=== PATIENT | female | born 1970 | race Caucasian/White ===

== ENCOUNTER → 2016-05-21 | Outpatient (CLI) | payer OTHER ==
[2015-10-30 19:55] VITALS: BP 130/70
[~2016-05-21] MED LIST: FLUD0.1T PO; HYDR-2666 PO; HYDR-971 PO; OXYC10TA PO; OXYC5CAP3 PO; POTA99TA2 PO; PROAIR HFA8.5 GM INH
--- NOTE | 2016-05-22 13:41 | RAD ---
DATE: 05/21/2016 EXAM: DIGITAL DIAGNOSTIC BILATERAL HISTORY: Bilateral breast pain. Chronic. COMPARISON: Outside examination 06/23/2015 This study was interpreted with the benefit of Computerized Aided Detection (CAD). FINDINGS: The breast parenchyma Is heterogeneiously dense, which could reduce sensitivity of mammography. Breast parenchyma level C. The area of concern in each breast (pain) was marked A dominant mass is not seen. No suspect calcifications are seen. A significant change relative to the outside examination is not seen Targeted ultrasound was performed. Examination was targeted to the areas of pain In the area examined in the right breast no abnormality is seen. In the area examined in the left breast, the 1:00 position there is a well-defined hypoechoic 13 mm mass probably reflecting a cyst. IMPRESSION: Unchanged benign-appearing mammograms. Normal targeted ultrasound of the right breast. 13 mm well-defined, probably benign, mass at the 1:00 position of the left breast likely reflecting a cyst. Follow-up ultrasound suggested in 6 months for confirmation BI-RADS CATEGORY: 3 PROBABLE BENIGN FINDING(S-SHORT INTERVAL FOLLOW-UP SUGGESTED RECOMMENDED FOLLOW-UP: 6M 6 MONTH FOLLOW-UP PQRS compliance statement: Patient information was entered into a reminder system with a target due date 11/21/2016 for the next mammogram. Mammography is a sensitive method for finding small breast cancers, but it does not detect them all and is not a substitute for careful clinical examination. A negative mammogram does not negate a clinically suspicious finding and should not result in delay in biopsying a clinically suspicious abnormality. "Our facility is accredited by the [employer] Mammography Program." DICTATED and SIGNED BY: JOSEFINA FRANCIS MD DATE: 05/21/16 1547 MTDDada
== END | disposition home or self-care (01) ==
LOC: MAMMO 13:02
PROVIDERS: ATTEND Obstetrics & Gynecology
DX: Z01.419 Encounter for gynecological examination (general) (routine) without abnormal findings (principal); N63 Unspecified lump in breast
CPT/HCPCS: 76641; G0204; 77066

== ENCOUNTER 2016-07-19 22:06 | Inpatient (IN) | payer OTHER ==
[~2016-07-19] VITALS: Ht 162.6 cm; Wt 76.9 kg
[2016-07-19 22:44] LABS: BASO % 0 % (0-3); EOS % 0 % (0-3); HEMATOCRIT 44.1 % (36.0-47.0); HEMOGLOBIN 14.7 g/dL (12.0-15.5); LYMPH # 0.6 x10^3/uL (1.0-4.8); LYMPH % 6 % (24-48); MEAN CORPUSCULAR HEMOGLOBIN 30 pg (25-35); MEAN CORPUSCULAR HGB CONC 33 g/dL (31-37); MEAN CORPUSCULAR VOLUME 89 fL (79-100); MONO % 2 % (0-9); NEUT % 92 % (31-73); PLATELET COUNT 215 x10^3/uL (140-400); RED BLOOD COUNT 4.95 x10^6/uL (3.50-5.40); RED CELL DISTRIBUTION WIDTH 14.6 % (11.5-14.5); WHITE BLOOD COUNT 10.7 x10^3/uL (4.0-11.0)
[2016-07-19] MEDS ORDERED: ONDANSETRON PF 4 MG/2 ML VIAL. IV ONE (22:45)
[2016-07-19] MEDS: IV NORMAL SALINE 1000ML BAG 1,000 ML IV ONE ×2 (22:45→22:49)
[2016-07-19] MEDS: fentaNYL PF VIAL 100 MCG/2 ML VIAL IV PRN (22:51)
[2016-07-19] MEDS: IV NORMAL SALINE 1000ML BAG 1,000 ML IV SCH ×3 (22:51→23:41)
[2016-07-19 22:59] LABS: CALCIUM 8.1 mg/dL (8.5-10.1); CREATININE 0.9 mg/dL (0.6-1.0); GFR 67.1; POTASSIUM 3.5 mmol/L (3.5-5.1)
[2016-07-19 23:02] LABS: PLT ESTIMATE ADEQUATE (ADEQUATE)
[2016-07-19 23:04] LABS: ALBUMIN 3.2 g/dL (3.4-5.0); ALBUMIN/GLOBULIN RATIO 0.8 (1.0-1.7); TOTAL BILIRUBIN 0.8 mg/dL (0.2-1.0); TOTAL PROTEIN 7.2 g/dL (6.4-8.2)
--- NOTE | 2016-07-19 23:46 | RAD ---
PROCEDURE CT abdomen pelvis without contrast dated 07/19/2016. HISTORY Fever and diarrhea for 2 days. TECHNIQUE Contiguous axial imaging of the abdomen and pelvis performed without the administration of IV or oral contrast.Exposure: One or more of the following individualized dose reduction techniques were utilized for this exam: 1. Automated exposure control. 2. Adjustment of the mA and/or kV according to patient size. 3. Use of iterative reconstruction technique. COMPARISON 06/11/2015. FINDINGS Limited images of the lung bases are clear. Heart size mildly enlarged. No pleural or pericardial effusion. Solid abdominal viscera not well evaluated in the absence of contrast material. No apparent attenuation abnormality of the liver or spleen. Pancreas, adrenal glands unremarkable. The gallbladder is surgically absent. Kidneys are symmetric in size and attenuation. No calcific renal or ureteral stone. No hydronephrosis. Unopacified GI tract normal in caliber and contour. No focal bowel wall thickening. No inflammatory stranding in the mesenteric. Appendix normal in caliber. No ascites or lymphadenopathy. Minimal hazy increased attenuation in the mesenteric fat with fluid-filled loops of bowel. Images of pelvis show nondistended urinary bladder. Uterus is surgically absent. Small amount of free pelvic fluid. No pelvic lymphadenopathy. Bone window show no acute findings. IMPRESSION - No acute abnormality of abdomen or pelvis. - Mild hazy increased attenuation in the mesenteric fat with fluid filled loops of bowel, nonspecific. This could represent infectious or inflammatory enteritis. - Small amount of free pelvic fluid, nonspecific. - Status post cholecystectomy and hysterectomy. Electronically signed by: Greg Baig (July 19, 2016 23:45:08)
[2016-07-19 23:54] LABS: BILIRUBIN,URINE NEGATIVE (NEG); GLUCOSE,URINE NEGATIVE (NEG); NITRITE,URINE NEGATIVE (NEG); PROTEIN,URINE NEGATIVE (NEG-TRACE); UROBILINOGEN,URINE 0.2 mg/dL (0.2 mg/dL)
[2016-07-20] VITALS (11 sets, daily range): BP systolic 89–117; BP diastolic 33–96
[2016-07-20 00:10] LABS: BACTERIA,URINE FEW /HPF (0-FEW); RBC,URINE 0 /HPF (0-2); SQUAMOUS EPITHELIAL CELL,UR FEW /LPF; WBC,URINE OCC /HPF (0-4)
[2016-07-20] MEDS: fentaNYL PF VIAL 100 MCG/2 ML VIAL IV PRN ×3 (00:19→21:05)
[2016-07-20] MEDS ORDERED: ONDANSETRON PF 4 MG/2 ML VIAL. IV PRN ×2 (00:30→12:45)
[2016-07-20] MEDS ORDERED: ACETAMINOPHEN 325 MG TABLET. PO PRN (00:30)
[2016-07-20] MEDS ORDERED: fentaNYL PF VIAL 100 MCG/2 ML VIAL IV PRN (00:30)
[2016-07-20] MEDS ORDERED: CIPROFLOXACIN 400MG PREMIX 200 ML IV ONE (02:00)
[2016-07-20] MEDS ORDERED: GABA-586 PO (02:06)
[2016-07-20] MEDS ORDERED: CYCL10TA2 PO (02:06)
[2016-07-20] MEDS: IV NORMAL SALINE 1000ML BAG 1,000 ML IV SCH ×3 (02:29→16:30)
--- NOTE | 2016-07-20 03:08 | PHYS DOC ---
Past Medical History Past Medical History: Asthma Additional Past Medical Histor: chest pain, "back pain" Past Surgical History: Cholecystectomy, Hysterectomy Additional Past Surgical Histo: left and right hand surgery, back surgery Alcohol Use: None Drug Use: None Adult General Chief Complaint Chief Complaint: NAUSEA/VOMITING/DIARRHA HPI HPI Patient is a 46 year old female who presents with abdominal pain, vomiting, diarrhea. The patient reports onset of symptoms yesterday. She reports severe lower abdominal pain associated with numerous episodes of vomiting, up to 4 times per hour, & many episodes of diarrhea. She reports sweats/chills. She denies hematemesis, hematochezia/melena, dysuria/hematuria. She denies exposures to other contacts with similar symptoms, no recent antibiotics. She just returned home from [place], in fact her symptoms started in the airport when she arrived in [place]. She has history of several abdominal surgeries including cholecystectomy, hysterectomy, oophorectomy, Review of Systems Review of Systems Constitutional: Denies fever or chills HENT: Denies nasal congestion or sore throat Respiratory: Denies cough or shortness of breath Cardiovascular: Denies chest pain or edema GI: Reports abdominal pain, nausea, vomiting, and diarrhea, denies bloody stools : Denies dysuria or hematuria Musculoskeletal: Denies back pain or joint pain Integument: Denies rash Neurologic: Denies headache, focal weakness or sensory changes Current Medications Current Medications Current Medications Medications (Trade) Dose Ordered Sig/Cordelia Start Time Stop Time Status Last Admin Dose Admin Fentanyl Citrate (Fentanyl 2ml Vial) 50 mcg PRN Q15MIN PRN 07/19/16 22:45 07/20/16 22:44 07/20/16 00:19 50 MCG Ondansetron HCl (Zofran) 4 mg 1X ONCE 07/19/16 22:45 07/19/16 22:46 DC 07/19/16 22:49 4 MG Sodium Chloride 1,000 ml @ 2,190 mls/hr Q28M 07/19/16 22:45 07/19/16 23:45 DC 07/19/16 22:51 2,190 MLS/HR Allergies Allergies Allergies Coded Allergies Type Severity Reaction Last Updated Verified Iodinated Contrast Media - Oral and Allergy Intermediate 10/15/13 Yes Sulfa (Sulfonamide Antibiotics) Allergy Intermediate Unknown 10/15/13 Yes Latex, Natural Rubber Allergy Mild ITCHY, RASH 08/02/15 Yes Physical Exam Physical Exam Constitutional: Well developed, well nourished, no acute distress, non-toxic appearance. HENT: Normocephalic, atraumatic, bilateral external ears normal, oropharynx dry , nose normal. Eyes: conjunctiva normal, no discharge. Neck: supple, no stridor. Cardiovascular: tachycardic, regular, no murmurs, no edema. Lungs & Thorax: LCTAB, no wheezing, no respiratory distress. Abdomen: normal bowel sounds, soft, generalized tenderness to lower abdomen without focal RLQ tenderness, no rebound/guarding, nondistended. Skin: Warm, dry, no erythema, no rash. Back: No CVA tenderness. Extremities: No tenderness, no edema. Neurologic: Alert and oriented X 3, no focal deficits noted. Psychologic: Affect normal, judgement normal, mood normal. Current Patient Data Vital Signs Vital Signs Date Time Temp Pulse Resp B/P (MAP) Pulse Ox O2 Delivery O2 Flow Rate FiO2 07/20/16 00:13 99.7 99.7 07/19/16 23:40 105 18 102/67 (79) 94 Room Air Lab Values Laboratory Tests Test 07/19/16 22:30 07/19/16 23:40 White Blood Count 10.7 x10^3/uL (4.0-11.0) Red Blood Count 4.95 x10^6/uL (3.50-5.40) Hemoglobin 14.7 g/dL (12.0-15.5) Hematocrit 44.1 % (36.0-47.0) Mean Corpuscular Volume 89 fL (79-100) Mean Corpuscular Hemoglobin 30 pg (25-35) Mean Corpuscular Hemoglobin Concent 33 g/dL (31-37) Red Cell Distribution Width 14.6 % (11.5-14.5) H Platelet Count 215 x10^3/uL (140-400) Neutrophils (%) (Auto) 92 % (31-73) H Lymphocytes (%) (Auto) 6 % (24-48) L Monocytes (%) (Auto) 2 % (0-9) Eosinophils (%) (Auto) 0 % (0-3) Basophils (%) (Auto) 0 % (0-3) Neutrophils # (Auto) 9.8 x10^3uL (1.8-7.7) H Lymphocytes # (Auto) 0.6 x10^3/uL (1.0-4.8) L Monocytes # (Auto) 0.3 x10^3/uL (0.0-1.1) Eosinophils # (Auto) 0.0 x10^3/uL (0.0-0.7) Basophils # (Auto) 0.0 x10^3/uL (0.0-0.2) Segmented Neutrophils % 82 % (35-66) H Band Neutrophils % 14 % (0-9) H Lymphocytes % 3 % (24-48) L Monocytes % 1 % (0-10) Platelet Estimate Adequate (ADEQUATE) Sodium Level 133 mmol/L (136-145) L Potassium Level 3.5 mmol/L (3.5-5.1) Chloride Level 100 mmol/L (98-107) Carbon Dioxide Level 25 mmol/L (21-32) Anion Gap 8 (6-14) Blood Urea Nitrogen 10 mg/dL (7-20) Creatinine 0.9 mg/dL (0.6-1.0) Estimated GFR (Cockcroft-Gault) 67.1 BUN/Creatinine Ratio 11 (6-20) Glucose Level 115 mg/dL (70-99) H Lactic Acid Level 1.0 mmol/L (0.4-2.0) Calcium Level 8.1 mg/dL (8.5-10.1) L Total Bilirubin 0.8 mg/dL (0.2-1.0) Aspartate Amino Transferase (AST) 10 U/L (15-37) L Alanine Aminotransferase (ALT) 16 U/L (14-59) Alkaline Phosphatase 64 U/L (46-116) Troponin I Quantitative < 0.017 ng/mL (0.000-0.055) Total Protein 7.2 g/dL (6.4-8.2) Albumin 3.2 g/dL (3.4-5.0) L Albumin/Globulin Ratio 0.8 (1.0-1.7) L Lipase 128 U/L (73-393) Urine Collection Type Unknown Urine Color Yellow Urine Clarity Clear Urine pH 6.0 Urine Specific [place] <=1.005 Urine Protein Negative mg/dL (NEG-TRACE) Urine Glucose (UA) Negative mg/dL (NEG) Urine Ketones (Stick) Negative mg/dL (NEG) Urine Blood Negative (NEG) Urine Nitrite Negative (NEG) Urine Bilirubin Negative (NEG) Urine Urobilinogen Dipstick 0.2 mg/dL (0.2 mg/dL) Urine Leukocyte Esterase Negative (NEG) Urine RBC 0 /HPF (0-2) Urine WBC Occ /HPF (0-4) Urine Squamous Epithelial Cells Few /LPF Urine Bacteria Few /HPF (0-FEW) Laboratory Tests 07/19/16 22:30 Laboratory Tests 07/19/16 22:30 EKG EKG [] Radiology/Procedures Radiology/Procedures PROCEDURE: CT ABDOMEN PELVIS WO CONTRAST PROCEDURE CT abdomen pelvis without contrast dated 07/19/2016. HISTORY Fever and diarrhea for 2 days. TECHNIQUE Contiguous axial imaging of the abdomen and pelvis performed without the administration of IV or oral contrast.Exposure: One or more of the following individualized dose reduction techniques were utilized for this exam: 1. Automated exposure control. 2. Adjustment of the mA and/or kV according to patient size. 3. Use of iterative reconstruction technique. COMPARISON 06/11/2015. FINDINGS Limited images of the lung bases are clear. Heart size mildly enlarged. No pleural or pericardial effusion. Solid abdominal viscera not well evaluated in the absence of contrast material. No apparent attenuation abnormality of the liver or spleen. Pancreas, adrenal glands unremarkable. The gallbladder is surgically absent. Kidneys are symmetric in size and attenuation. No calcific renal or ureteral stone. No hydronephrosis. Unopacified GI tract normal in caliber and contour. No focal bowel wall thickening. No inflammatory stranding in the mesenteric. Appendix normal in caliber. No ascites or lymphadenopathy. Minimal hazy increased attenuation in the mesenteric fat with fluid-filled loops of bowel. Images of pelvis show nondistended urinary bladder. Uterus is surgically absent. Small amount of free pelvic fluid. No pelvic lymphadenopathy. Bone window show no acute findings. IMPRESSION - No acute abnormality of abdomen or pelvis. - Mild hazy increased attenuation in the mesenteric fat with fluid filled loops of bowel, nonspecific. This could represent infectious or inflammatory enteritis. - Small amount of free pelvic fluid, nonspecific. - Status post cholecystectomy and hysterectomy. Electronically signed by: Greg Baig (July 19, 2016 23:45:08) DICTATED and SIGNED BY: GREG BAIG MD DATE: 07/19/16 2345 [] Course & Med Decision Making Course & Med Decision Making Pertinent Labs and Imaging studies reviewed. (See chart for details) The patient presents with abdominal pain, vomiting, diarrhea. Gave IV fluids per sepsis protocol as she has fever & tachycardia, gave zofran & pain medication. Obtained labs, UA, CT. No evidence of UTI & CT shows enteritis. Fever resolving, less tachycardic, pain controlled, no further vomiting. Likely gastroenteritis with dehydration but will give single dose of cipro & flagyl as she meets sepsis criteria. Recommended admission for further evaluation & treatment. She agrees with plan of care. Discussed with Dr. Taveras who agrees to admit to inpatient status, GI consult to Dr. Dotson. The patient is admitted in stable condition. [] Dragon Disclaimer Dragon Disclaimer This electronic medical record was generated, in whole or in part, using a voice recognition dictation system. Departure Departure Impression: Primary Impression: Abdominal pain Additional Impressions: Gastroenteritis SIRS (systemic inflammatory response syndrome) Fever Tachycardia Disposition: ADMITTED INPATIENT Admitting Physician: Hortencia Taveras Condition: STABLE Referrals: EDY SANABRIA MD (PCP) Problem Qualifiers ELEN STONER MD July 20, 2016 03:08
--- NOTE | 2016-07-20 10:01 | EKG ---
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
--- NOTE | 2016-07-20 10:14 | PDOC1 ---
History and Physical Current Problem List Problem List Problems Medical Problems: (1) Abdominal pain Status: Acute (2) Fever Status: Acute (3) Gastroenteritis Status: Acute (4) SIRS (systemic inflammatory response syndrome) Status: Acute (5) Tachycardia Status: Acute Current Medications Current Medications Current Medications Medications (Trade) Dose Ordered Sig/Cordelia Start Time Stop Time Status Last Admin Dose Admin Acetaminophen (Tylenol) 650 mg PRN Q4HRS PRN 07/20/16 00:30 07/21/16 00:29 07/20/16 02:28 650 MG Ciprofloxacin Lactate 200 ml @ 200 mls/hr 1X ONCE 07/20/16 02:00 07/20/16 02:59 DC 07/20/16 02:29 200 MLS/HR Fentanyl Citrate (Fentanyl 2ml Vial) 50 mcg PRN Q1HR PRN 07/20/16 00:30 07/21/16 00:29 07/20/16 05:01 50 MCG Metronidazole 100 ml @ 100 mls/hr 1X ONCE 07/20/16 01:00 07/20/16 01:59 DC Ondansetron HCl (Zofran) 4 mg PRN Q8HRS PRN 07/20/16 00:30 07/21/16 00:29 07/20/16 07:29 4 MG Sodium Chloride 1,000 ml @ 125 mls/hr Q8H 07/20/16 00:30 07/21/16 00:29 07/20/16 02:29 125 MLS/HR Allergies Allergies Allergies Coded Allergies Type Severity Reaction Last Updated Verified Iodinated Contrast Media - Oral and Allergy Intermediate 10/15/13 Yes Sulfa (Sulfonamide Antibiotics) Allergy Intermediate Unknown 10/15/13 Yes aspirin Allergy Intermediate 07/20/16 Yes codeine Allergy Intermediate 07/20/16 Yes guaifenesin Allergy Intermediate 07/20/16 Yes ibuprofen Allergy Intermediate 07/20/16 Yes morphine Allergy Intermediate Patient is can take PO Morphine 07/20/16 Yes pamabrom Allergy Intermediate 07/20/16 Yes Latex, Natural Rubber Allergy Mild ITCHY, RASH 08/02/15 Yes ROS Review of System CONSTITUTIONAL: No fever or chills EYES: No recent changes SKIN: No rash or itching CARDIOVASCULAR: No chest pain, syncope, palpitations, or edema RESPIRATORY: No SOB or cough GASTROINTESTINAL: nausea, vomiting or abdominal pain, diarrhea. NEUROLOGICAL: No headaches or weakness ENDOCRINE: No cold or heat intolerance GENITOURINARY: No urgency or frequency of urination MUSCULOSKELETAL: No back pain or joint pain LYMPHATICS: No enlarged lymph nodes PSYCHIATRIC: No anxiety or depression Physical Exam Physical Exam GEN.: No apparent distress. Alert and oriented. HEENT: Head is normocephalic, atraumatic NECK: Supple. no JVD LUNGS: Clear to auscultation. HEART: RRR, S1, S2 present. Peripheral pulses intact ABDOMEN: Soft, nontender. Positive bowel sounds. EXTREMITIES: Without any cyanosis. NEUROLOGIC: Normal speech, normal tone PSYCHIATRIC: Normal affect, normal mood. SKIN: No ulcerations Vitals Vitals Vital Signs Date Time Temp Pulse Resp B/P (MAP) Pulse Ox O2 Delivery O2 Flow Rate FiO2 07/20/16 08:00 Room Air 07/20/16 07:29 2.0 07/20/16 07:00 97.7 80 18 97/53 (68) 100 97.7 Labs Labs Laboratory Tests Test 07/19/16 22:30 07/19/16 23:40 07/20/16 00:30 White Blood Count 10.7 x10^3/uL (4.0-11.0) Red Blood Count 4.95 x10^6/uL (3.50-5.40) Hemoglobin 14.7 g/dL (12.0-15.5) Hematocrit 44.1 % (36.0-47.0) Mean Corpuscular Volume 89 fL (79-100) Mean Corpuscular Hemoglobin 30 pg (25-35) Mean Corpuscular Hemoglobin Concent 33 g/dL (31-37) Red Cell Distribution Width 14.6 % (11.5-14.5) Platelet Count 215 x10^3/uL (140-400) Neutrophils (%) (Auto) 92 % (31-73) Lymphocytes (%) (Auto) 6 % (24-48) Monocytes (%) (Auto) 2 % (0-9) Eosinophils (%) (Auto) 0 % (0-3) Basophils (%) (Auto) 0 % (0-3) Neutrophils # (Auto) 9.8 x10^3uL (1.8-7.7) Lymphocytes # (Auto) 0.6 x10^3/uL (1.0-4.8) Monocytes # (Auto) 0.3 x10^3/uL (0.0-1.1) Eosinophils # (Auto) 0.0 x10^3/uL (0.0-0.7) Basophils # (Auto) 0.0 x10^3/uL (0.0-0.2) Segmented Neutrophils % 82 % (35-66) Band Neutrophils % 14 % (0-9) Lymphocytes % 3 % (24-48) Monocytes % 1 % (0-10) Platelet Estimate Adequate (ADEQUATE) Sodium Level 133 mmol/L (136-145) Potassium Level 3.5 mmol/L (3.5-5.1) Chloride Level 100 mmol/L (98-107) Carbon Dioxide Level 25 mmol/L (21-32) Anion Gap 8 (6-14) Blood Urea Nitrogen 10 mg/dL (7-20) Creatinine 0.9 mg/dL (0.6-1.0) Estimated GFR (Cockcroft-Gault) 67.1 BUN/Creatinine Ratio 11 (6-20) Glucose Level 115 mg/dL (70-99) Lactic Acid Level 1.0 mmol/L (0.4-2.0) 0.9 mmol/L (0.4-2.0) Calcium Level 8.1 mg/dL (8.5-10.1) Total Bilirubin 0.8 mg/dL (0.2-1.0) Aspartate Amino Transf (AST/SGOT) 10 U/L (15-37) Alanine Aminotransferase (ALT/SGPT) 16 U/L (14-59) Alkaline Phosphatase 64 U/L (46-116) Troponin I Quantitative < 0.017 ng/mL (0.000-0.055) Total Protein 7.2 g/dL (6.4-8.2) Albumin 3.2 g/dL (3.4-5.0) Albumin/Globulin Ratio 0.8 (1.0-1.7) Lipase 128 U/L (73-393) Urine Collection Type Unknown Urine Color Yellow Urine Clarity Clear Urine pH 6.0 Urine Specific [place] <=1.005 Urine Protein Negative mg/dL (NEG-TRACE) Urine Glucose (UA) Negative mg/dL (NEG) Urine Ketones (Stick) Negative mg/dL (NEG) Urine Blood Negative (NEG) Urine Nitrite Negative (NEG) Urine Bilirubin Negative (NEG) Urine Urobilinogen Dipstick 0.2 mg/dL (0.2 mg/dL) Urine Leukocyte Esterase Negative (NEG) Urine RBC 0 /HPF (0-2) Urine WBC Occ /HPF (0-4) Urine Squamous Epithelial Cells Few /LPF Urine Bacteria Few /HPF (0-FEW) Laboratory Tests Test 07/19/16 22:30 07/19/16 23:40 07/20/16 00:30 White Blood Count 10.7 x10^3/uL (4.0-11.0) Red Blood Count 4.95 x10^6/uL (3.50-5.40) Hemoglobin 14.7 g/dL (12.0-15.5) Hematocrit 44.1 % (36.0-47.0) Mean Corpuscular Volume 89 fL (79-100) Mean Corpuscular Hemoglobin 30 pg (25-35) Mean Corpuscular Hemoglobin Concent 33 g/dL (31-37) Red Cell Distribution Width 14.6 % (11.5-14.5) Platelet Count 215 x10^3/uL (140-400) Neutrophils (%) (Auto) 92 % (31-73) Lymphocytes (%) (Auto) 6 % (24-48) Monocytes (%) (Auto) 2 % (0-9) Eosinophils (%) (Auto) 0 % (0-3) Basophils (%) (Auto) 0 % (0-3) Neutrophils # (Auto) 9.8 x10^3uL (1.8-7.7) Lymphocytes # (Auto) 0.6 x10^3/uL (1.0-4.8) Monocytes # (Auto) 0.3 x10^3/uL (0.0-1.1) Eosinophils # (Auto) 0.0 x10^3/uL (0.0-0.7) Basophils # (Auto) 0.0 x10^3/uL (0.0-0.2) Segmented Neutrophils % 82 % (35-66) Band Neutrophils % 14 % (0-9) Lymphocytes % 3 % (24-48) Monocytes % 1 % (0-10) Platelet Estimate Adequate (ADEQUATE) Sodium Level 133 mmol/L (136-145) Potassium Level 3.5 mmol/L (3.5-5.1) Chloride Level 100 mmol/L (98-107) Carbon Dioxide Level 25 mmol/L (21-32) Anion Gap 8 (6-14) Blood Urea Nitrogen 10 mg/dL (7-20) Creatinine 0.9 mg/dL (0.6-1.0) Estimated GFR (Cockcroft-Gault) 67.1 BUN/Creatinine Ratio 11 (6-20) Glucose Level 115 mg/dL (70-99) Lactic Acid Level 1.0 mmol/L (0.4-2.0) 0.9 mmol/L (0.4-2.0) Calcium Level 8.1 mg/dL (8.5-10.1) Total Bilirubin 0.8 mg/dL (0.2-1.0) Aspartate Amino Transf (AST/SGOT) 10 U/L (15-37) Alanine Aminotransferase (ALT/SGPT) 16 U/L (14-59) Alkaline Phosphatase 64 U/L (46-116) Troponin I Quantitative < 0.017 ng/mL (0.000-0.055) Total Protein 7.2 g/dL (6.4-8.2) Albumin 3.2 g/dL (3.4-5.0) Albumin/Globulin Ratio 0.8 (1.0-1.7) Lipase 128 U/L (73-393) Urine Collection Type Unknown Urine Color Yellow Urine Clarity Clear Urine pH 6.0 Urine Specific [place] <=1.005 Urine Protein Negative mg/dL (NEG-TRACE) Urine Glucose (UA) Negative mg/dL (NEG) Urine Ketones (Stick) Negative mg/dL (NEG) Urine Blood Negative (NEG) Urine Nitrite Negative (NEG) Urine Bilirubin Negative (NEG) Urine Urobilinogen Dipstick 0.2 mg/dL (0.2 mg/dL) Urine Leukocyte Esterase Negative (NEG) Urine RBC 0 /HPF (0-2) Urine WBC Occ /HPF (0-4) Urine Squamous Epithelial Cells Few /LPF Urine Bacteria Few /HPF (0-FEW) VTE Prophylaxis Ordered VTE Prophylaxis Devices: No VTE Pharmacological Prophylaxi: No ISREAL GRACE MD July 20, 2016 10:14
--- NOTE | 2016-07-20 10:16 | EKG ---
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
[2016-07-20] MEDS ORDERED: IV NORMAL SALINE 500ML BAG 500 ML IV ONE (12:45)
[2016-07-20] MEDS ORDERED: hydrALAZINE 20 MG/ML VIAL. IVP PRN (12:45)
[2016-07-20] MEDS ORDERED: ALBUTEROL SULFATE 2.5 MG/3 ML NEBU. NEB PRN (12:45)
[2016-07-20] MEDS ORDERED: HYDROmorphone 2 MG/ML VIAL IVP PRN (12:45)
[2016-07-20] MEDS: PANTOPRAZOLE IV PUSH 40 MG VIAL. IVP SCH (13:28)
[2016-07-20] MEDS: CIPROFLOXACIN 400MG PREMIX 200 ML IV SCH ×2 (13:29→20:50)
--- NOTE | 2016-07-20 13:41 | CONS ---
DATE OF CONSULTATION: 07/20/2016 REASON FOR CONSULTATION: Abdominal pain. HISTORY OF PRESENT ILLNESS: This is a 46-year-old female who was admitted to [facility] on 07/20/2016 for abdominal pain. She recently returned from a trip to [place]. She traveled through [place]. She ate some [employer] and then began having nausea, vomiting, and diarrhea. She denies any blood in her stool. She had several episodes, and her last was half an hour prior to her admission to [place]. She denies any recent antibiotics. She states that she has had inflammation in her small intestines before. Her evaluation has included a CT scan that did demonstrate mild, hazy, increased attenuation of the mesenteric fat with fluid-filled loops of bowel that was nonspecific. This was thought to be an infectious or inflammatory enteritis. She reports a history of inflammation to her intestines before. She also states that she has had an EGD done several years ago that demonstrated ulcers in her stomach. She does not know why she had them. PAST MEDICAL HISTORY: 1. Asthma. 2. Cholecystectomy. 3. Hysterectomy. 4. Left and right hand surgery. 5. Back surgery. 6. Mediated hypertension. 7. Question of adrenal insufficiency. 8. Headaches. 9. Oophorectomy. HOME MEDICATIONS: Include: 1. Flexeril. 2. Hydrocodone. 3. Fludrohydrocortisone. ALLERGIES: ADENOSIN CONTRAST, SULFA, LATEX, AND NATURAL RUBBER. REVIEW OF SYSTEMS: She admits to fevers to 102. Otherwise, her symptoms are as per HPI. PHYSICAL EXAMINATION: VITAL SIGNS: Temperature is 97.7, blood pressure 97/53, and heart rate is 80. GENERAL: She is a well-developed, well-nourished female, in no apparent distress. HEENT: Oropharynx is clear. CARDIOVASCULAR: S1, S2. LUNGS: Clear. ABDOMEN: Does have normoactive bowel sounds, is soft but diffusely tender to palpation. EXTREMITIES: No edema. NEUROLOGIC: She is awake, alert, and oriented x3. LABORATORY DATA: UA was unrevealing. White blood cell count of 10.7 with a hemoglobin of 14.7, MCV of 89, and platelets are 215. Chemistries show a low AST at 10, but otherwise her LFTs are unremarkable. Lipase is normal at 128. Sodium is low at 133, and potassium is 35. IMAGING STUDIES: CT of the abdomen and pelvis demonstrated a mild, hazy, increased attenuation of mesenteric fat with fluid-filled loops of bowel. There is also a small amount of free pelvic fluid. ASSESSMENT AND PLAN: 1. Abdominal pain. This is likely secondary to viral gastroenteritis given that her symptoms began after travel. This may also be food poisoning given that she states she ate at [employer], and her boyfriend also started to have headache after the onset of the symptoms. At this time, I favor supportive therapy. She is currently receiving IV fluid and antibiotics. 2. Nausea, vomiting, and diarrhea. This may be secondary to her gastroenteritis. I will check her cortisone given that her sodium is low in the setting of taking fludrohydrocortisone. 3. Fever. This is likely due to her viral gastroenteritis. We will continue to monitor. Consider outpatient endoscopies once her acute symptoms have resolved. Thank you for allowing me and Dr. Dotson to participate in the care of this patient. NEREIDA TINSLEY MD DR: NI/tiff JOB#: [id number] / [id number] EDY Santos MD, Dr. Michael
[2016-07-20] MEDS: ACETAMINOPHEN 325 MG TABLET. PO PRN (15:46)
[2016-07-20] MEDS ORDERED: IV NORMAL SALINE 1000ML BAG 1,000 ML IV SCH (20:00)
[2016-07-20] MEDS: IV DEXTROSE 5% - 0.9 % NACL 1,000 ML IV SCH (20:49)
--- NOTE | 2016-07-20 23:57 | ACF ---
Admit Criteria Forms Admit Criteria Forms Admit Criteria Forms ABDOMINAL PAIN Clinical Indications for Admission to Inpatient Care (Place 'X' for any and all applicable criteria): Admission is indicated for ANY ONE of the following(1)(2)(3)(4)(5): [ X]I. Inpatient admission required rather than observation care (Also use Abdominal Pain: Observation Care, as appropriate) because of ANY ONE of the following: [ ]a) Severe pain requiring acute inpatient management [X ]b) Identification of etiology/finding that requires inpatient care (eg, aortic dissection, free air) [ ]c) Absent bowel sounds with complete ileus(6) [ ]d) Suspected toxic megacolon [ ]e) Severe electrolyte abnormalities requiring inpatient care [ ]f) High fever or infection requiring inpatient admission as indicated by ANY ONE of following(7)(8): [ ] i) Appropriate outpatient or observational care antimicrobial treatment unavailable, not effective, or not feasible [ ] ii) Documented bacteremia [ ] iii) Temperature > 104.9 degrees F (oral) [ ] iv) T >103.1 F (oral) or < 96.8 F(rectal) that does not respond to all emergency treatment measures [ ]g) Signs of intestinal obstruction [B] [ ]h) Hemodynamic instability [ ]i) IV fluid to replace significant ongoing losses (greater than 3 L/m2 per day) (12)(13) [ ]j) Percutaneous or open drainage (eg, abscess, biliary tract ) procedures [ ]k) Parenteral nutrition regimen that must be implemented on inpatient basis [ ]l) Other condition,treatment or monitoring requiring inpatient admission. [ ]II. Peritoneal signs present [ ]III. Surgery needed that cannot be performed on an ambulatory basis. [ ]IV. Evaluation requires patient to not eat or drink for extended period ( eg, more than 24 hours). [ ]V. Contraindications and/or Inappropriate clinical situations for Observational Care in patients with abdominal pain, when ANY ONE of the following is required: [ ]a) Thorough evaluation is required to prevent catastrophic events due to delays in diagnosing (e.g.Mesenteric ischemia) 1,3 [ ]b) Patient with severe pathology or with chronic symptoms unlikely to improve in the ED stay (3) [ ]. General contraindications and/or Inappropriate clinical situations for Observational Care in patients with abdominal pain, when ANY ONE of the following is required: [ ]a) Prediction of prolongation of LOS based on ANY ONE of the following may be considered as a contraindication for observational care 2, 3, 4, 5, 6, 7, 8, 9, 10, 11 [ ]i) Age > 65 yrs. [ ]ii) Patient arriving by ambulance [ ]iii) Patient with high acuity [ ]iv) Patient requiring vital sign monitoring [ ]v) Patient on IV medication [ ]b) Systolic blood pressures 180mmHg 3,12 [ ]c) Patient with altered mental status including delirium and other alteration of consciousness, (3) [ ]d) Patient whose discharge disposition will be to a correction home or rehabilitation home should not be managed in Emergency Department Observation Unit. CMS rule requires 3 days hospital stay before such placement.3,13 [ ]e) Patient with failure to thrive due to broad array of etiologies 3,16,17 [ ]f) Inability to ambulate 3,14 Extended stay beyond goal length of stay may be needed for(2)(3): [ ]a) Persistent abdominal pain with suspected intra-abdominal process [ ]b) Diagnosed condition requiring continued stay (e.g., pancreatitis, complicated diverticulitis) [ ]c) Surgery (e.g., colectomy) The original [employer] content created by [employer] has been revised. The portions of the content which have been revised are identified through the use of italic text or in bold, and [facility] has neither reviewed nor approved the modified material.All other unmodified content is copyright [employer]. Please see references footnoted in the original [employer] [facility] edition 2016 NOEMY JARAMILLO July 20, 2016 23:57
[2016-07-21 03:40] VITALS: BP 95/61
[2016-07-21 04:37] LABS: BASO % 1 % (0-3); EOS % 1 % (0-3); HEMATOCRIT 37.9 % (36.0-47.0); HEMOGLOBIN 12.9 g/dL (12.0-15.5); LYMPH # 0.8 x10^3/uL (1.0-4.8); LYMPH % 16 % (24-48); MEAN CORPUSCULAR HEMOGLOBIN 30 pg (25-35); MEAN CORPUSCULAR HGB CONC 34 g/dL (31-37); MEAN CORPUSCULAR VOLUME 89 fL (79-100); MONO % 5 % (0-9); NEUT % 77 % (31-73); PLATELET COUNT 186 x10^3/uL (140-400); RED BLOOD COUNT 4.25 x10^6/uL (3.50-5.40); RED CELL DISTRIBUTION WIDTH 14.6 % (11.5-14.5); WHITE BLOOD COUNT 4.9 x10^3/uL (4.0-11.0)
[2016-07-21 04:50] LABS: CALCIUM 7.8 mg/dL (8.5-10.1); CREATININE 0.7 mg/dL (0.6-1.0); GFR 89.7; POTASSIUM 3.6 mmol/L (3.5-5.1)
--- NOTE | 2016-07-21 05:38 | HP ---
ADMIT DATE: 07/20/2016 CHIEF COMPLAINT: Abdominal pain, diarrhea. HISTORY OF PRESENT ILLNESS: A 46-year-old female with prior history of cholecystectomy, hysterectomy, presented to the ER with complaints of abdominal pain and diarrhea. She had a recent family visit to [place] and [place] and also had some food taken from [employer] and developed some nausea, vomiting, diarrhea She denies any hemetemesis or hematochezia. She did not have any diarrhea afterwards. She presented to the ER; however, she has developed some hypertension and fevers. She had abdominal pain of intractable nature all over and mostly located in the right lower quadrant. Her CT abdomen showed questionable enteritis. PAST MEDICAL HISTORY: Asthma, cholecystectomy, hysterectomy, hand surgery, back surgeries, hypertension, questionable adrenal insufficiency, headaches, oophorectomy. HOME MEDICATIONS: Reviewed and reconciled. Please see the MRAD. ALLERGIES: _AND LATEX, NATURAL RUBBER, SULFA, ASPIRIN, CODEINE, IBUPROFEN, REVIEW OF SYSTEMS: Please see my electronic H and P. PHYSICAL EXAMINATION: Please see my electronic H and P. LABORATORY DATA: 1. CBC within normal limits. Chemistry: Sodium 133, potassium is 3.5, chloride is 100, gap is 18, chloride 9.9, glucose 115 and troponin is less than 0.017. 2. Urine, nitrites negative, bilirubin negative. 3. Blood cultures negative , CT of the abdomen and pelvis, questionable enteritis. ASSESSMENT AND PLAN: 1. Nausea, vomiting, diarrhea with abdominal pain, suspected gastroenteritis most likely viral. enteritis. 2. Fever. 3. Hypotension. 4. Intractable pain.' 5. Dehydration, PLAN: 1. She has been placed on broad spectrum antibiotics as ciprofloxacin and Flagyl for treating any bacterial infection; however, the symptoms look like mostly food poison or supportive of viral gastroenteritis. She developed hypotension, will give her 1 L normal saline bolus and increase fluids NS to 125 mL per hour. 2. Continue aggressive IV hydration. 3. Tylenol for fever. 4. P.r.n. Zofran for nausea. 5. Pain control with IV Dilaudid q. 2 hours. 6. Supportive care. 7. Stool cultures ordered. 8. Home medications reviewed and reconciled. 9. Clear liquid diet if the patient is able to tolerate 10. Overall prognosis is good. 11. Gastroenterology has been consulted. ISREAL GRACE MD DR: Kourtney JOB#: [id number] / [id number] NARAYAN
[2016-07-21] MEDS ORDERED: HYDROmorphone 2 MG/ML VIAL IVP PRN (06:00)
[2016-07-21] MEDS: PANTOPRAZOLE IV PUSH 40 MG VIAL. IVP SCH (06:03)
[2016-07-21] MEDS ORDERED: NON FORMULARY ITEM (Potassium Gluconate 99 MG) PO PRN (06:15)
[2016-07-21] MEDS ORDERED: FLUDROCORTISONE 0.1 MG TABLET PO PRN (06:15)
[2016-07-21 07:00] VITALS: BP 101/53
[2016-07-21] MEDS: ACETAMINOPHEN 325 MG TABLET. PO PRN ×3 (08:04→22:46)
[2016-07-21] MEDS: CIPROFLOXACIN 400MG PREMIX 200 ML IV SCH ×2 (08:05→21:16)
--- NOTE | 2016-07-21 09:59 | PDOC ---
PROGRESS NOTES Chief Complaint Chief Complaint CC: DIARRHEA a/p 1. Nausea, vomiting, diarrhea with abdominal pain, suspected gastroenteritis most likely viral. 2. Fever. 3. Hypotension 4. Intractable pain. 5, Mild headaches 6. Dehydration Plan start Florinef prn bladder scan clear liquids, advance as tolerated. no fever today symptomatic treatment If headaches persist, consult Neurology Vitals Vitals Vital Signs Date Time Temp Pulse Resp B/P (MAP) Pulse Ox O2 Delivery O2 Flow Rate FiO2 07/21/16 08:00 Room Air 07/21/16 07:00 98.4 83 16 101/53 (69) 95 98.4 07/20/16 07:29 2.0 Physical Exam General: Oriented X3, Cooperative Heart: Normal S1, Normal S2 Lungs: Clear Abdomen: Normal bowel sounds, Soft Labs LABS Laboratory Tests Test 07/21/16 03:50 White Blood Count 4.9 x10^3/uL (4.0-11.0) Red Blood Count 4.25 x10^6/uL (3.50-5.40) Hemoglobin 12.9 g/dL (12.0-15.5) Hematocrit 37.9 % (36.0-47.0) Mean Corpuscular Volume 89 fL (79-100) Mean Corpuscular Hemoglobin 30 pg (25-35) Mean Corpuscular Hemoglobin Concent 34 g/dL (31-37) Red Cell Distribution Width 14.6 % (11.5-14.5) Platelet Count 186 x10^3/uL (140-400) Neutrophils (%) (Auto) 77 % (31-73) Lymphocytes (%) (Auto) 16 % (24-48) Monocytes (%) (Auto) 5 % (0-9) Eosinophils (%) (Auto) 1 % (0-3) Basophils (%) (Auto) 1 % (0-3) Neutrophils # (Auto) 3.8 x10^3uL (1.8-7.7) Lymphocytes # (Auto) 0.8 x10^3/uL (1.0-4.8) Monocytes # (Auto) 0.2 x10^3/uL (0.0-1.1) Eosinophils # (Auto) 0.0 x10^3/uL (0.0-0.7) Basophils # (Auto) 0.0 x10^3/uL (0.0-0.2) Sodium Level 141 mmol/L (136-145) Potassium Level 3.6 mmol/L (3.5-5.1) Chloride Level 107 mmol/L (98-107) Carbon Dioxide Level 24 mmol/L (21-32) Anion Gap 10 (6-14) Blood Urea Nitrogen 5 mg/dL (7-20) Creatinine 0.7 mg/dL (0.6-1.0) Estimated GFR (Cockcroft-Gault) 89.7 Glucose Level 104 mg/dL (70-99) Calcium Level 7.8 mg/dL (8.5-10.1) Assessment and Plan Assessmemt and Plan Problems Medical Problems: (1) Abdominal pain Status: Acute (2) Fever Status: Acute (3) Gastroenteritis Status: Acute (4) SIRS (systemic inflammatory response syndrome) Status: Acute (5) Tachycardia Status: Acute Problems: Comment Review of Relevant I have reviewed the following items melva (where applicable) has been applied. Labs Laboratory Tests Test 07/19/16 22:30 07/19/16 23:40 07/20/16 00:30 07/21/16 03:50 White Blood Count 10.7 x10^3/uL (4.0-11.0) 4.9 x10^3/uL (4.0-11.0) Red Blood Count 4.95 x10^6/uL (3.50-5.40) 4.25 x10^6/uL (3.50-5.40) Hemoglobin 14.7 g/dL (12.0-15.5) 12.9 g/dL (12.0-15.5) Hematocrit 44.1 % (36.0-47.0) 37.9 % (36.0-47.0) Mean Corpuscular Volume 89 fL (79-100) 89 fL (79-100) Mean Corpuscular Hemoglobin 30 pg (25-35) 30 pg (25-35) Mean Corpuscular Hemoglobin Concent 33 g/dL (31-37) 34 g/dL (31-37) Red Cell Distribution Width 14.6 % (11.5-14.5) 14.6 % (11.5-14.5) Platelet Count 215 x10^3/uL (140-400) 186 x10^3/uL (140-400) Neutrophils (%) (Auto) 92 % (31-73) 77 % (31-73) Lymphocytes (%) (Auto) 6 % (24-48) 16 % (24-48) Monocytes (%) (Auto) 2 % (0-9) 5 % (0-9) Eosinophils (%) (Auto) 0 % (0-3) 1 % (0-3) Basophils (%) (Auto) 0 % (0-3) 1 % (0-3) Neutrophils # (Auto) 9.8 x10^3uL (1.8-7.7) 3.8 x10^3uL (1.8-7.7) Lymphocytes # (Auto) 0.6 x10^3/uL (1.0-4.8) 0.8 x10^3/uL (1.0-4.8) Monocytes # (Auto) 0.3 x10^3/uL (0.0-1.1) 0.2 x10^3/uL (0.0-1.1) Eosinophils # (Auto) 0.0 x10^3/uL (0.0-0.7) 0.0 x10^3/uL (0.0-0.7) Basophils # (Auto) 0.0 x10^3/uL (0.0-0.2) 0.0 x10^3/uL (0.0-0.2) Segmented Neutrophils % 82 % (35-66) Band Neutrophils % 14 % (0-9) Lymphocytes % 3 % (24-48) Monocytes % 1 % (0-10) Platelet Estimate Adequate (ADEQUATE) Sodium Level 133 mmol/L (136-145) 141 mmol/L (136-145) Potassium Level 3.5 mmol/L (3.5-5.1) 3.6 mmol/L (3.5-5.1) Chloride Level 100 mmol/L (98-107) 107 mmol/L (98-107) Carbon Dioxide Level 25 mmol/L (21-32) 24 mmol/L (21-32) Anion Gap 8 (6-14) 10 (6-14) Blood Urea Nitrogen 10 mg/dL (7-20) 5 mg/dL (7-20) Creatinine 0.9 mg/dL (0.6-1.0) 0.7 mg/dL (0.6-1.0) Estimated GFR (Cockcroft-Gault) 67.1 89.7 BUN/Creatinine Ratio 11 (6-20) Glucose Level 115 mg/dL (70-99) 104 mg/dL (70-99) Lactic Acid Level 1.0 mmol/L (0.4-2.0) 0.9 mmol/L (0.4-2.0) Calcium Level 8.1 mg/dL (8.5-10.1) 7.8 mg/dL (8.5-10.1) Total Bilirubin 0.8 mg/dL (0.2-1.0) Aspartate Amino Transf (AST/SGOT) 10 U/L (15-37) Alanine Aminotransferase (ALT/SGPT) 16 U/L (14-59) Alkaline Phosphatase 64 U/L (46-116) Troponin I Quantitative < 0.017 ng/mL (0.000-0.055) Total Protein 7.2 g/dL (6.4-8.2) Albumin 3.2 g/dL (3.4-5.0) Albumin/Globulin Ratio 0.8 (1.0-1.7) Lipase 128 U/L (73-393) Urine Collection Type Unknown Urine Color Yellow Urine Clarity Clear Urine pH 6.0 Urine Specific Daniel <=1.005 Urine Protein Negative mg/dL (NEG-TRACE) Urine Glucose (UA) Negative mg/dL (NEG) Urine Ketones (Stick) Negative mg/dL (NEG) Urine Blood Negative (NEG) Urine Nitrite Negative (NEG) Urine Bilirubin Negative (NEG) Urine Urobilinogen Dipstick 0.2 mg/dL (0.2 mg/dL) Urine Leukocyte Esterase Negative (NEG) Urine RBC 0 /HPF (0-2) Urine WBC Occ /HPF (0-4) Urine Squamous Epithelial Cells Few /LPF Urine Bacteria Few /HPF (0-FEW) Laboratory Tests Test 07/21/16 03:50 White Blood Count 4.9 x10^3/uL (4.0-11.0) Red Blood Count 4.25 x10^6/uL (3.50-5.40) Hemoglobin 12.9 g/dL (12.0-15.5) Hematocrit 37.9 % (36.0-47.0) Mean Corpuscular Volume 89 fL (79-100) Mean Corpuscular Hemoglobin 30 pg (25-35) Mean Corpuscular Hemoglobin Concent 34 g/dL (31-37) Red Cell Distribution Width 14.6 % (11.5-14.5) Platelet Count 186 x10^3/uL (140-400) Neutrophils (%) (Auto) 77 % (31-73) Lymphocytes (%) (Auto) 16 % (24-48) Monocytes (%) (Auto) 5 % (0-9) Eosinophils (%) (Auto) 1 % (0-3) Basophils (%) (Auto) 1 % (0-3) Neutrophils # (Auto) 3.8 x10^3uL (1.8-7.7) Lymphocytes # (Auto) 0.8 x10^3/uL (1.0-4.8) Monocytes # (Auto) 0.2 x10^3/uL (0.0-1.1) Eosinophils # (Auto) 0.0 x10^3/uL (0.0-0.7) Basophils # (Auto) 0.0 x10^3/uL (0.0-0.2) Sodium Level 141 mmol/L (136-145) Potassium Level 3.6 mmol/L (3.5-5.1) Chloride Level 107 mmol/L (98-107) Carbon Dioxide Level 24 mmol/L (21-32) Anion Gap 10 (6-14) Blood Urea Nitrogen 5 mg/dL (7-20) Creatinine 0.7 mg/dL (0.6-1.0) Estimated GFR (Cockcroft-Gault) 89.7 Glucose Level 104 mg/dL (70-99) Calcium Level 7.8 mg/dL (8.5-10.1) Microbiology 07/19/16 Blood Culture - Preliminary, Resulted NO GROWTH AFTER 1 DAY Medications Current Medications Sodium Chloride 1,000 ml @ 1,000 mls/hr 1X ONCE IV ; Start 07/19/16 at 22:45; Stop 07/19/16 at 23:44; Status DC Ondansetron HCl (Zofran) 4 mg 1X ONCE IV Last administered on 07/19/16t 22:49 ; Start 07/19/16 at 22:45; Stop 07/19/16 at 22:46; Status DC Fentanyl Citrate (Fentanyl 2ml Vial) 50 mcg PRN Q15MIN PRN IV PAIN GREATER THAN 3/10 Last administered on 07/20/16 21:05; Start 07/19/16 at 22:45; Stop at 22:44; Status DC Sodium Chloride 1,000 ml @ 2,190 mls/hr Q28M IV Last administered on 22:51; Start 07/19/16 at 22:45; Stop 07/19/16 at 23:45; Status DC Ondansetron HCl (Zofran) 4 mg PRN Q8HRS PRN IV NAUSEA/VOMITING Last administered on 07/20/16 07:29; Start 07/20/16 at 00:30; Stop 07/21/16 at 00:29 ; Status DC Fentanyl Citrate (Fentanyl 2ml Vial) 50 mcg PRN Q1HR PRN IV PAIN Last administered on 07/20/16 05:01; Start 07/20/16 at 00:30; Stop 07/21/16 at 00:29 ; Status DC Sodium Chloride 1,000 ml @ 125 mls/hr Q8H IV Last administered on 07/20/16 12 :00; Start 07/20/16 at 00:30; Stop 07/21/16 at 00:29; Status DC Acetaminophen (Tylenol) 650 mg PRN Q4HRS PRN PO FEVER Last administered on 07/20 02:28; Start 07/20/16 at 00:30; Stop 07/21/16 at 00:29; Status DC Ciprofloxacin Lactate 200 ml @ 200 mls/hr 1X ONCE IV Last administered on 02:29; Start 07/20/16 at 02:00; Stop 07/20/16 at 02:59; Status DC Metronidazole 100 ml @ 100 mls/hr 1X ONCE IV ; Start 07/20/16 at 01:00; Stop 07/20/16 at 01:59; Status DC Acetaminophen (Tylenol) 325 mg PRN Q6HRS PRN PO MILD PAIN / TEMP Last administered on 07/21/16 08:04; Start 07/20/16 at 12:45 Hydralazine HCl (Apresoline) 10 mg PRN Q4HRS PRN IVP ELEVATED BP, SEE COMMENTS ; Start 07/20/16 at 12:45 Ondansetron HCl (Zofran) 4 mg PRN Q8HRS PRN IV NAUSEA/VOMITING; Start 07/20/16 at 12:45 Albuterol Sulfate (Ventolin Neb Soln) 2.5 mg PRN Q4HRS PRN NEB SHORTNESS OF BREATH; Start 07/20/16 at 12:45 Ciprofloxacin Lactate 200 ml @ 200 mls/hr Q12HR IV Last administered on 08:05; Start 07/20/16 at 13:30 Metronidazole 100 ml @ 100 mls/hr Q8HRS IV Last administered on 07/21/16 06: 00; Start 07/20/16 at 14:00 Pantoprazole Sodium (Protonix Vial) 40 mg DAILYAC IVP Last administered on 07/21 06:03; Start 07/20/16 at 12:45 Hydromorphone HCl (Dilaudid) 0.5 mg PRN Q2HRS PRN IVP PAIN Last administered on 07/20/16 17:40; Start 07/20/16 at 12:45; Stop 07/20/16 at 20:37; Status DC Sodium Chloride 500 ml @ 500 mls/hr 1X ONCE IV Last administered on 14:43; Start 07/20/16 at 12:45; Stop 07/20/16 at 13:44; Status DC Sodium Chloride 1,000 ml @ 125 mls/hr Q8H IV ; Start 07/20/16 at 20:00; Stop at 20:35; Status DC Dextrose/Sodium Chloride 1,000 ml @ 100 mls/hr Q10H IV Last administered on 20:49; Start 07/20/16 at 20:45; Stop 07/21/16 at 20:44 Hydromorphone HCl (Dilaudid) 0.5 mg PRN Q1HR PRN IVP PAIN; Start 07/21/16 at 06 :00 Fludrocortisone Acetate (Florinef) 0.1 mg PRN DAILY PRN PO DIRECTED BY MD; Start 07/21/16 at 06:15 Non-Formulary Medication 99 mg PRN PRN PO SEE COMMENTS; Start 07/21/16 at 06:15 ; Status UNV Active Scripts Active Hydrocodone-Apap 5-325 (Hydrocodone Bit/Acetaminophen) 1 Each Tablet 1 Tab PO PRN Q6HRS PRN Proair Hfa Inhaler (Albuterol Sulfate) 8.5 Gm Hfa.aer.ad 1 Puff INH PRN Q6HRS PRN [place] 5-325 Tablet (Acetaminophen/Hydrocodone Bitart) 1 Each Tablet 1-2 Tab PO Q4-6HRS Reported Cyclobenzaprine Hcl 10 Mg Tablet 1 Tab PO PRN PRN Gabapentin 300 Mg Capsule 300 Mg PO BID Potassium Gluconate 99 Mg Tablet 99 Mg PO PRN PRN takes for "adrenaline attack" Fludrocortisone Acetate 0.1 Mg Tablet 0.1 Mg PO PRN patient takes for "adrenaline attack" Oxycodone Hcl 5 Mg Capsule 5 Mg PO PRN Q6HRS PRN Vitals/I & O Vital Sign - Last 24 Hours 07/20/16 07/20/16 07/20/16 07/20/16 11:00 11:15 11:26 11:28 Temp 98.4 98.4 Pulse 84 83 87 102 Resp 18 B/P (MAP) 90/33 (52) 103/52 (69) 91/54 (66) 100/64 (76) Pulse Ox 94 O2 Delivery Room Air 07/20/16 07/20/16 07/20/16 07/20/16 14:56 16:21 17:40 19:00 Temp 99.3 97.7 99.3 97.7 Pulse 92 72 Resp 16 21 B/P (MAP) 89/39 (56) 117/96 (103) Pulse Ox 93 97 92 O2 Delivery Room Air Room Air Room Air Room Air 07/20/16 07/20/16 07/20/16 07/20/16 20:00 21:05 21:35 22:53 Temp 98.2 98.2 Pulse 73 Resp 18 B/P (MAP) 98/56 (70) Pulse Ox 94 O2 Delivery Room Air Room Air Room Air Room Air 07/21/16 07/21/16 07/21/16 03:40 07:00 08:00 Temp 97.9 98.4 97.9 98.4 Pulse 82 83 Resp 16 16 B/P (MAP) 95/61 (72) 101/53 (69) Pulse Ox 95 95 O2 Delivery Room Air Room Air Room Air Intake and Output 07/20/16 07/20/16 07/21/16 15:00 23:00 07:00 Intake Total 1200 ml 700 ml 60 ml Balance 1200 ml 700 ml 60 ml ISREAL GRACE MD July 21, 2016 09:59
[2016-07-21 10:00] VITALS: BP 96/52
--- NOTE | 2016-07-21 12:19 | PDOC ---
Subjective: Subjective: Better today. abd pain resolved. No diarrhea. Wants to eat Objective: Vital Signs: Vital Signs Date Time Temp Pulse Resp B/P (MAP) Pulse Ox O2 Delivery O2 Flow Rate FiO2 07/21/16 10:00 98.1 69 16 96/52 (67) 97 Room Air 98.1 07/20/16 07:29 2.0 Labs: Laboratory Tests Test 07/21/16 03:50 White Blood Count 4.9 x10^3/uL (4.0-11.0) Red Blood Count 4.25 x10^6/uL (3.50-5.40) Hemoglobin 12.9 g/dL (12.0-15.5) Hematocrit 37.9 % (36.0-47.0) Mean Corpuscular Volume 89 fL (79-100) Mean Corpuscular Hemoglobin 30 pg (25-35) Mean Corpuscular Hemoglobin Concent 34 g/dL (31-37) Red Cell Distribution Width 14.6 % (11.5-14.5) Platelet Count 186 x10^3/uL (140-400) Neutrophils (%) (Auto) 77 % (31-73) Lymphocytes (%) (Auto) 16 % (24-48) Monocytes (%) (Auto) 5 % (0-9) Eosinophils (%) (Auto) 1 % (0-3) Basophils (%) (Auto) 1 % (0-3) Neutrophils # (Auto) 3.8 x10^3uL (1.8-7.7) Lymphocytes # (Auto) 0.8 x10^3/uL (1.0-4.8) Monocytes # (Auto) 0.2 x10^3/uL (0.0-1.1) Eosinophils # (Auto) 0.0 x10^3/uL (0.0-0.7) Basophils # (Auto) 0.0 x10^3/uL (0.0-0.2) Sodium Level 141 mmol/L (136-145) Potassium Level 3.6 mmol/L (3.5-5.1) Chloride Level 107 mmol/L (98-107) Carbon Dioxide Level 24 mmol/L (21-32) Anion Gap 10 (6-14) Blood Urea Nitrogen 5 mg/dL (7-20) Creatinine 0.7 mg/dL (0.6-1.0) Estimated GFR (Cockcroft-Gault) 89.7 Glucose Level 104 mg/dL (70-99) Calcium Level 7.8 mg/dL (8.5-10.1) Physical Exam: Physical Exam: GEN: NAD HEENT: OP clear CV: S1S2 without murmurs, rubs, or gallops RESP: CTAB without wheezing, rhonchi, or crackles ABD: NABS, SNT/ND EXT: No edema NEURO: AAO x 3 Assessment & Plan: Assessment : 1) Abd pain: resolved 2) Diarrhea: resolved. F/u stool studies 3) N/V; resolved. F/u am cortisol Plan: Okay to advance diet. if tolerates, okay for d/c Problems: NEREIDA TINSLEY MD July 21, 2016 12:19
[2016-07-21] MEDS: IV DEXTROSE 5% - 0.9 % NACL 1,000 ML IV SCH ×2 (12:37→21:21)
[2016-07-21 15:00] VITALS: BP 95/51
[2016-07-21 19:00] VITALS: BP 97/47
[2016-07-21 23:00] VITALS: BP 109/45
[2016-07-22 03:00] VITALS: BP 100/53
[2016-07-22 07:00] VITALS: BP 111/56
[2016-07-22] MEDS: PANTOPRAZOLE IV PUSH 40 MG VIAL. IVP SCH (07:30)
[2016-07-22] MEDS: CIPROFLOXACIN 400MG PREMIX 200 ML IV SCH ×2 (08:35→20:13)
[2016-07-22 11:00] VITALS: BP 108/63
--- NOTE | 2016-07-22 12:08 | PDOC ---
PROGRESS NOTES Chief Complaint Chief Complaint Abdominal pain Diarrhea Dehydration Fever - resolved Hypotension - resolved Mild headaches History of Present Illness History of Present Illness Patient was lying in bed in no acute distress Asking if she could eat Discussed care with nurse Vitals Vitals Vital Signs Date Time Temp Pulse Resp B/P (MAP) Pulse Ox O2 Delivery O2 Flow Rate FiO2 07/22/16 11:00 98.4 77 14 108/63 (78) 97 Room Air 98.4 07/22/16 01:13 2.0 Physical Exam General: Oriented X3, Cooperative Heart: Regular rate, Normal S1, Normal S2 Lungs: Clear, Other (no wheezing) Abdomen: Normal bowel sounds, Soft Extremities: No clubbing, No cyanosis Skin: No rashes, No breakdown Review of Systems Review of Systems General: denies weakness GI: denies N/V/D/C Assessment and Plan Assessmemt and Plan Problems Medical Problems: (1) Abdominal pain Status: Acute (2) Fever Status: Acute (3) Gastroenteritis Status: Acute (4) SIRS (systemic inflammatory response syndrome) Status: Acute (5) Tachycardia Status: Acute Abdominal pain Diarrhea Dehydration Fever - resolved Hypotension - resolved on Florinef Mild headaches Plan: -Advance diet as tolerated -C.diff PCR, Giardia antigen, and stool culture pending -Continue Florinef -Cortisol lab pending -Bladder scan pending -GI following -BCx NG at 2 days -Recheck AM labs -PT/OT as appropriate -Subspecialty input appreciated Problems: Comment Review of Relevant I have reviewed the following items melva (where applicable) has been applied. Labs Laboratory Tests Test 07/21/16 03:50 White Blood Count 4.9 x10^3/uL (4.0-11.0) Red Blood Count 4.25 x10^6/uL (3.50-5.40) Hemoglobin 12.9 g/dL (12.0-15.5) Hematocrit 37.9 % (36.0-47.0) Mean Corpuscular Volume 89 fL (79-100) Mean Corpuscular Hemoglobin 30 pg (25-35) Mean Corpuscular Hemoglobin Concent 34 g/dL (31-37) Red Cell Distribution Width 14.6 % (11.5-14.5) Platelet Count 186 x10^3/uL (140-400) Neutrophils (%) (Auto) 77 % (31-73) Lymphocytes (%) (Auto) 16 % (24-48) Monocytes (%) (Auto) 5 % (0-9) Eosinophils (%) (Auto) 1 % (0-3) Basophils (%) (Auto) 1 % (0-3) Neutrophils # (Auto) 3.8 x10^3uL (1.8-7.7) Lymphocytes # (Auto) 0.8 x10^3/uL (1.0-4.8) Monocytes # (Auto) 0.2 x10^3/uL (0.0-1.1) Eosinophils # (Auto) 0.0 x10^3/uL (0.0-0.7) Basophils # (Auto) 0.0 x10^3/uL (0.0-0.2) Sodium Level 141 mmol/L (136-145) Potassium Level 3.6 mmol/L (3.5-5.1) Chloride Level 107 mmol/L (98-107) Carbon Dioxide Level 24 mmol/L (21-32) Anion Gap 10 (6-14) Blood Urea Nitrogen 5 mg/dL (7-20) Creatinine 0.7 mg/dL (0.6-1.0) Estimated GFR (Cockcroft-Gault) 89.7 Glucose Level 104 mg/dL (70-99) Calcium Level 7.8 mg/dL (8.5-10.1) Cortisol AM Sample 2.3 ug/dL (6.2-19.4) Microbiology 07/19/16 Blood Culture - Preliminary, Resulted NO GROWTH AFTER 2 DAYS Medications Current Medications Sodium Chloride 1,000 ml @ 1,000 mls/hr 1X ONCE IV ; Start 07/19/16 at 22:45; Stop 07/19/16 at 23:44; Status DC Ondansetron HCl (Zofran) 4 mg 1X ONCE IV Last administered on 07/19/16 22:49 ; Start 07/19/16 at 22:45; Stop 07/19/16 at 22:46; Status DC Fentanyl Citrate (Fentanyl 2ml Vial) 50 mcg PRN Q15MIN PRN IV PAIN GREATER THAN 3/10 Last administered on 07/20/16 21:05; Start 07/19/16 at 22:45; Stop at 22:44; Status DC Sodium Chloride 1,000 ml @ 2,190 mls/hr Q28M IV Last administered on 22:51; Start 07/19/16 at 22:45; Stop 07/19/16 at 23:45; Status DC Ondansetron HCl (Zofran) 4 mg PRN Q8HRS PRN IV NAUSEA/VOMITING Last administered on 07/20/16 07:29; Start 07/20/16 at 00:30; Stop 07/21/16 at 00:29 ; Status DC Fentanyl Citrate (Fentanyl 2ml Vial) 50 mcg PRN Q1HR PRN IV PAIN Last administered on 07/20/16 05:01; Start 07/20/16 at 00:30; Stop 07/21/16 at 00:29 ; Status DC Sodium Chloride 1,000 ml @ 125 mls/hr Q8H IV Last administered on 07/20/16 12 :00; Start 07/20/16 at 00:30; Stop 07/21/16 at 00:29; Status DC Acetaminophen (Tylenol) 650 mg PRN Q4HRS PRN PO FEVER Last administered on 07/20 02:28; Start 07/20/16 at 00:30; Stop 07/21/16 at 00:29; Status DC Ciprofloxacin Lactate 200 ml @ 200 mls/hr 1X ONCE IV Last administered on 02:29; Start 07/20/16 at 02:00; Stop 07/20/16 at 02:59; Status DC Metronidazole 100 ml @ 100 mls/hr 1X ONCE IV ; Start 07/20/16 at 01:00; Stop 07/20/16 at 01:59; Status DC Acetaminophen (Tylenol) 325 mg PRN Q6HRS PRN PO MILD PAIN / TEMP Last administered on 07/21/16 22:46; Start 07/20/16 at 12:45 Hydralazine HCl (Apresoline) 10 mg PRN Q4HRS PRN IVP ELEVATED BP, SEE COMMENTS ; Start 07/20/16 at 12:45 Ondansetron HCl (Zofran) 4 mg PRN Q8HRS PRN IV NAUSEA/VOMITING Last administered on 07/22/16 05:26; Start 07/20/16 at 12:45 Albuterol Sulfate (Ventolin Neb Soln) 2.5 mg PRN Q4HRS PRN NEB SHORTNESS OF BREATH; Start 07/20/16 at 12:45 Ciprofloxacin Lactate 200 ml @ 200 mls/hr Q12HR IV Last administered on 08:35; Start 07/20/16 at 13:30 Metronidazole 100 ml @ 100 mls/hr Q8HRS IV Last administered on 07/22/16 05: 26; Start 07/20/16 at 14:00 Pantoprazole Sodium (Protonix Vial) 40 mg DAILYAC IVP Last administered on 07/22 07:30; Start 07/20/16 at 12:45 Hydromorphone HCl (Dilaudid) 0.5 mg PRN Q2HRS PRN IVP PAIN Last administered on 07/20/16 17:40; Start 07/20/16 at 12:45; Stop 07/20/16 at 20:37; Status DC Sodium Chloride 500 ml @ 500 mls/hr 1X ONCE IV Last administered on 14:43; Start 07/20/16 at 12:45; Stop 07/20/16 at 13:44; Status DC Sodium Chloride 1,000 ml @ 125 mls/hr Q8H IV ; Start 07/20/16 at 20:00; Stop at 20:35; Status DC Dextrose/Sodium Chloride 1,000 ml @ 100 mls/hr Q10H IV Last administered on 21:21; Start 07/20/16 at 20:45; Stop 07/21/16 at 20:44; Status DC Hydromorphone HCl (Dilaudid) 0.5 mg PRN Q1HR PRN IVP PAIN Last administered on 07/22/16 00:43; Start 07/21/16 at 06:00 Fludrocortisone Acetate (Florinef) 0.1 mg PRN DAILY PRN PO DIRECTED BY ; Start 07/21/16 at 06:15 Non-Formulary Medication 99 mg PRN PRN PO SEE COMMENTS; Start 07/21/16 at 06:15 ; Status UNV Active Scripts Active Hydrocodone-Apap 5-325 (Hydrocodone Bit/Acetaminophen) 1 Each Tablet 1 Tab PO PRN Q6HRS PRN Proair Hfa Inhaler (Albuterol Sulfate) 8.5 Gm Hfa.aer.ad 1 Puff INH PRN Q6HRS PRN [place] 5-325 Tablet (Acetaminophen/Hydrocodone Bitart) 1 Each Tablet 1-2 Tab PO Q4-6HRS Reported Cyclobenzaprine Hcl 10 Mg Tablet 1 Tab PO PRN PRN Gabapentin 300 Mg Capsule 300 Mg PO BID Potassium Gluconate 99 Mg Tablet 99 Mg PO PRN PRN takes for "adrenaline attack" Fludrocortisone Acetate 0.1 Mg Tablet 0.1 Mg PO PRN patient takes for "adrenaline attack" Oxycodone Hcl 5 Mg Capsule 5 Mg PO PRN Q6HRS PRN Vitals/I & O Vital Sign - Last 24 Hours 07/21/16 07/21/16 07/21/16 07/21/16 15:00 19:00 20:00 23:00 Temp 97.7 96.8 97.9 97.7 96.8 97.9 Pulse 78 69 74 Resp 18 18 18 B/P (MAP) 95/51 (66) 97/47 (64) 109/45 (66) Pulse Ox 96 96 97 O2 Delivery Room Air Room Air Room Air Room Air O2 Flow Rate 2.0 07/22/16 07/22/16 07/22/16 07/22/16 00:43 01:13 03:00 07:00 Temp 97.9 97.7 97.9 97.7 Pulse 71 63 Resp 18 19 B/P (MAP) 100/53 (69) 111/56 (74) Pulse Ox 97 97 100 94 O2 Delivery Room Air Room Air Room Air Room Air O2 Flow Rate 2.0 2.0 07/22/16 07/22/16 08:00 11:00 Temp 98.4 98.4 Pulse 77 Resp 14 B/P (MAP) 108/63 (78) Pulse Ox 97 O2 Delivery Room Air Room Air Intake and Output 07/21/16 07/21/16 07/22/16 15:00 23:00 07:00 Intake Total 500 ml 650 ml 100 ml Balance 500 ml 650 ml 100 ml SHOBHANIAL K III DO July 22, 2016 12:08
--- NOTE | 2016-07-22 12:32 | PDOC ---
Subjective: Subjective: Tolerated clears and fulls yesterday. Loose stool x 1 around 2:00 a.m. Got up again around 3:00 or 4:00 w/ "gas," vomited x 1. Didn't eat breakfast, planning to try a little for lunch. Objective: Vital Signs: Vital Signs Date Time Temp Pulse Resp B/P (MAP) Pulse Ox O2 Delivery O2 Flow Rate FiO2 07/22/16 11:00 98.4 77 14 108/63 (78) 97 Room Air 98.4 07/22/16 01:13 2.0 PE: GEN: NAD LUNGS: CTAB HEART: RRR ABD: LLQ discomfort, BS hyperactive NEURO/PSYCH: A & O 3 A/P: N/v, diarrhea, abd pain -pain mostly LLQ -diarrhea improved, one loose stool overnight -n/v better yesterday, then vomiting x 1 early this morning Fever - none while inpt Abnormal CT -07/19: -mild hazy increased attenuation in the mesenteric fat with fluid filled loops of bowel, nonspecific Adrenal insufficiency -a.m. cortisol low, on Florinef -- ?viral - vomiting recurred overnight. Will review w/ Dr. Dotson. NELSON MAR July 22, 2016 12:32
[2016-07-22 15:00] VITALS: BP 110/60
[2016-07-22 19:58] VITALS: BP 100/60
[2016-07-22 23:30] VITALS: BP 98/52
[2016-07-23 06:18] LABS: BASO % 1 % (0-3); EOS % 3 % (0-3); HEMATOCRIT 37.4 % (36.0-47.0); HEMOGLOBIN 12.7 g/dL (12.0-15.5); LYMPH # 1.5 x10^3/uL (1.0-4.8); LYMPH % 38 % (24-48); MEAN CORPUSCULAR HEMOGLOBIN 30 pg (25-35); MEAN CORPUSCULAR HGB CONC 34 g/dL (31-37); MEAN CORPUSCULAR VOLUME 89 fL (79-100); MONO % 8 % (0-9); NEUT % 50 % (31-73); PLATELET COUNT 202 x10^3/uL (140-400); RED BLOOD COUNT 4.22 x10^6/uL (3.50-5.40); RED CELL DISTRIBUTION WIDTH 14.3 % (11.5-14.5)
[2016-07-23 06:35] LABS: CALCIUM 8.3 mg/dL (8.5-10.1); CREATININE 0.6 mg/dL (0.6-1.0); GFR 107.2; POTASSIUM 3.8 mmol/L (3.5-5.1)
[2016-07-23 07:00] VITALS: BP 105/55
[2016-07-23] MEDS: PANTOPRAZOLE IV PUSH 40 MG VIAL. IVP SCH (08:56)
[2016-07-23] MEDS: CIPROFLOXACIN 400MG PREMIX 200 ML IV SCH (08:58)
--- NOTE | 2016-07-23 10:35 | PDOC ---
Subjective: Subjective: Feeling better. No n/v or diarrhea. Tolerating reg diet. Less abd pain. Would like to go home. Objective: Vital Signs: Vital Signs Date Time Temp Pulse Resp B/P (MAP) Pulse Ox O2 Delivery O2 Flow Rate FiO2 07/23/16 08:07 98 Room Air 07/23/16 07:00 98.8 78 18 105/55 (72) 98.8 07/22/16 20:00 2.0 Labs: Laboratory Tests Test 07/23/16 05:25 White Blood Count 4.0 x10^3/uL Red Blood Count 4.22 x10^6/uL Hemoglobin 12.7 g/dL Hematocrit 37.4 % Mean Corpuscular Volume 89 fL Mean Corpuscular Hemoglobin 30 pg Mean Corpuscular Hemoglobin Concent 34 g/dL Red Cell Distribution Width 14.3 % Platelet Count 202 x10^3/uL Neutrophils (%) (Auto) 50 % Lymphocytes (%) (Auto) 38 % Monocytes (%) (Auto) 8 % Eosinophils (%) (Auto) 3 % Basophils (%) (Auto) 1 % Neutrophils # (Auto) 2.0 x10^3uL Lymphocytes # (Auto) 1.5 x10^3/uL Monocytes # (Auto) 0.3 x10^3/uL Eosinophils # (Auto) 0.1 x10^3/uL Basophils # (Auto) 0.0 x10^3/uL Sodium Level 143 mmol/L Potassium Level 3.8 mmol/L Chloride Level 108 mmol/L Carbon Dioxide Level 26 mmol/L Anion Gap 9 Blood Urea Nitrogen 5 mg/dL Creatinine 0.6 mg/dL Estimated GFR (Cockcroft-Gault) 107.2 Glucose Level 97 mg/dL Calcium Level 8.3 mg/dL PE: GEN: NAD LUNGS: CTAB HEART: RRR ABD: NABS, S/ND, less LLQ tenderness NEURO/PSYCH: A & O 3 A/P: N/v, diarrhea, abd pain - resolving -now tolerating PO w/o issue -- DC per primary. NELSON MAR July 23, 2016 10:35
[2016-07-23 11:00] VITALS: BP 94/54
--- NOTE | 2016-07-23 11:13 | PDOC ---
PROGRESS NOTES Chief Complaint Chief Complaint Abdominal pain Diarrhea SIRS Dehydration Tachycardia Fever - resolved Hypotension - resolved Mild headaches History of Present Illness History of Present Illness Patient was sitting in bed She was able to eat a full breakfast States GI told her ok to go home if she was able to eat solid food Discussed care with nurse Vitals Vitals Vital Signs Date Time Temp Pulse Resp B/P (MAP) Pulse Ox O2 Delivery O2 Flow Rate FiO2 07/23/16 08:07 98 Room Air 07/23/16 07:00 98.8 78 18 105/55 (72) 98.8 07/22/16 20:00 2.0 Physical Exam General: Alert, Oriented X3, Cooperative Heart: Regular rate, Normal S1, Normal S2 Lungs: Clear, Other (no wheezing) Abdomen: Normal bowel sounds, Soft Extremities: No clubbing, No cyanosis Skin: No rashes, No breakdown Labs LABS Laboratory Tests Test 07/23/16 05:25 White Blood Count 4.0 x10^3/uL (4.0-11.0) Red Blood Count 4.22 x10^6/uL (3.50-5.40) Hemoglobin 12.7 g/dL (12.0-15.5) Hematocrit 37.4 % (36.0-47.0) Mean Corpuscular Volume 89 fL (79-100) Mean Corpuscular Hemoglobin 30 pg (25-35) Mean Corpuscular Hemoglobin Concent 34 g/dL (31-37) Red Cell Distribution Width 14.3 % (11.5-14.5) Platelet Count 202 x10^3/uL (140-400) Neutrophils (%) (Auto) 50 % (31-73) Lymphocytes (%) (Auto) 38 % (24-48) Monocytes (%) (Auto) 8 % (0-9) Eosinophils (%) (Auto) 3 % (0-3) Basophils (%) (Auto) 1 % (0-3) Neutrophils # (Auto) 2.0 x10^3uL (1.8-7.7) Lymphocytes # (Auto) 1.5 x10^3/uL (1.0-4.8) Monocytes # (Auto) 0.3 x10^3/uL (0.0-1.1) Eosinophils # (Auto) 0.1 x10^3/uL (0.0-0.7) Basophils # (Auto) 0.0 x10^3/uL (0.0-0.2) Sodium Level 143 mmol/L (136-145) Potassium Level 3.8 mmol/L (3.5-5.1) Chloride Level 108 mmol/L (98-107) Carbon Dioxide Level 26 mmol/L (21-32) Anion Gap 9 (6-14) Blood Urea Nitrogen 5 mg/dL (7-20) Creatinine 0.6 mg/dL (0.6-1.0) Estimated GFR (Cockcroft-Gault) 107.2 Glucose Level 97 mg/dL (70-99) Calcium Level 8.3 mg/dL (8.5-10.1) Review of Systems Review of Systems General: denies weakness GI: denies N/V/D/C Assessment and Plan Assessmemt and Plan Problems Medical Problems: (1) Abdominal pain Status: Acute (2) Fever Status: Acute (3) Gastroenteritis Status: Acute (4) SIRS (systemic inflammatory response syndrome) Status: Acute (5) Tachycardia Status: Acute Abdominal pain Diarrhea SIRS Dehydration Tachycardia Fever - resolved Hypotension - resolved Mild headaches Plan: -Discharge to home -GI following - ok to discharge since patient is eating well -Giardia and C.diff tests negative -Stool culture pending -Follow up with PCP in 1 week -Subspecialty input appreciated Problems: Comment Review of Relevant I have reviewed the following items melva (where applicable) has been applied. Labs Laboratory Tests Test 07/21/16 23:50 07/23/16 05:25 Clostridium difficile Toxin (PCR) Negative (Negative) Giardia Antigen Negative (Negative) White Blood Count 4.0 x10^3/uL (4.0-11.0) Red Blood Count 4.22 x10^6/uL (3.50-5.40) Hemoglobin 12.7 g/dL (12.0-15.5) Hematocrit 37.4 % (36.0-47.0) Mean Corpuscular Volume 89 fL (79-100) Mean Corpuscular Hemoglobin 30 pg (25-35) Mean Corpuscular Hemoglobin Concent 34 g/dL (31-37) Red Cell Distribution Width 14.3 % (11.5-14.5) Platelet Count 202 x10^3/uL (140-400) Neutrophils (%) (Auto) 50 % (31-73) Lymphocytes (%) (Auto) 38 % (24-48) Monocytes (%) (Auto) 8 % (0-9) Eosinophils (%) (Auto) 3 % (0-3) Basophils (%) (Auto) 1 % (0-3) Neutrophils # (Auto) 2.0 x10^3uL (1.8-7.7) Lymphocytes # (Auto) 1.5 x10^3/uL (1.0-4.8) Monocytes # (Auto) 0.3 x10^3/uL (0.0-1.1) Eosinophils # (Auto) 0.1 x10^3/uL (0.0-0.7) Basophils # (Auto) 0.0 x10^3/uL (0.0-0.2) Sodium Level 143 mmol/L (136-145) Potassium Level 3.8 mmol/L (3.5-5.1) Chloride Level 108 mmol/L (98-107) Carbon Dioxide Level 26 mmol/L (21-32) Anion Gap 9 (6-14) Blood Urea Nitrogen 5 mg/dL (7-20) Creatinine 0.6 mg/dL (0.6-1.0) Estimated GFR (Cockcroft-Gault) 107.2 Glucose Level 97 mg/dL (70-99) Calcium Level 8.3 mg/dL (8.5-10.1) Laboratory Tests Test 07/23/16 05:25 White Blood Count 4.0 x10^3/uL (4.0-11.0) Red Blood Count 4.22 x10^6/uL (3.50-5.40) Hemoglobin 12.7 g/dL (12.0-15.5) Hematocrit 37.4 % (36.0-47.0) Mean Corpuscular Volume 89 fL (79-100) Mean Corpuscular Hemoglobin 30 pg (25-35) Mean Corpuscular Hemoglobin Concent 34 g/dL (31-37) Red Cell Distribution Width 14.3 % (11.5-14.5) Platelet Count 202 x10^3/uL (140-400) Neutrophils (%) (Auto) 50 % (31-73) Lymphocytes (%) (Auto) 38 % (24-48) Monocytes (%) (Auto) 8 % (0-9) Eosinophils (%) (Auto) 3 % (0-3) Basophils (%) (Auto) 1 % (0-3) Neutrophils # (Auto) 2.0 x10^3uL (1.8-7.7) Lymphocytes # (Auto) 1.5 x10^3/uL (1.0-4.8) Monocytes # (Auto) 0.3 x10^3/uL (0.0-1.1) Eosinophils # (Auto) 0.1 x10^3/uL (0.0-0.7) Basophils # (Auto) 0.0 x10^3/uL (0.0-0.2) Sodium Level 143 mmol/L (136-145) Potassium Level 3.8 mmol/L (3.5-5.1) Chloride Level 108 mmol/L (98-107) Carbon Dioxide Level 26 mmol/L (21-32) Anion Gap 9 (6-14) Blood Urea Nitrogen 5 mg/dL (7-20) Creatinine 0.6 mg/dL (0.6-1.0) Estimated GFR (Cockcroft-Gault) 107.2 Glucose Level 97 mg/dL (70-99) Calcium Level 8.3 mg/dL (8.5-10.1) Microbiology 07/19/16 Blood Culture - Preliminary, Resulted NO GROWTH AFTER 3 DAYS Medications Current Medications Sodium Chloride 1,000 ml @ 1,000 mls/hr 1X ONCE IV ; Start 07/19/16 at 22:45; Stop 07/19/16 at 23:44; Status DC Ondansetron HCl (Zofran) 4 mg 1X ONCE IV Last administered on 07/19/16 22:49 ; Start 07/19/16 at 22:45; Stop 07/19/16 at 22:46; Status DC Fentanyl Citrate (Fentanyl 2ml Vial) 50 mcg PRN Q15MIN PRN IV PAIN GREATER THAN 3/10 Last administered on 07/20/16 21:05; Start 07/19/16 at 22:45; Stop at 22:44; Status DC Sodium Chloride 1,000 ml @ 2,190 mls/hr Q28M IV Last administered on 22:51; Start 07/19/16 at 22:45; Stop 07/19/16 at 23:45; Status DC Ondansetron HCl (Zofran) 4 mg PRN Q8HRS PRN IV NAUSEA/VOMITING Last administered on 07/20/16 07:29; Start 07/20/16 at 00:30; Stop 07/21/16 at 00:29 ; Status DC Fentanyl Citrate (Fentanyl 2ml Vial) 50 mcg PRN Q1HR PRN IV PAIN Last administered on 07/20/16 05:01; Start 07/20/16 at 00:30; Stop 07/21/16 at 00:29 ; Status DC Sodium Chloride 1,000 ml @ 125 mls/hr Q8H IV Last administered on 07/20/16 12 :00; Start 07/20/16 at 00:30; Stop 07/21/16 at 00:29; Status DC Acetaminophen (Tylenol) 650 mg PRN Q4HRS PRN PO FEVER Last administered on 07/20 02:28; Start 07/20/16 at 00:30; Stop 07/21/16 at 00:29; Status DC Ciprofloxacin Lactate 200 ml @ 200 mls/hr 1X ONCE IV Last administered on 02:29; Start 07/20/16 at 02:00; Stop 07/20/16 at 02:59; Status DC Metronidazole 100 ml @ 100 mls/hr 1X ONCE IV ; Start 07/20/16 at 01:00; Stop 07/20/16 at 01:59; Status DC Acetaminophen (Tylenol) 325 mg PRN Q6HRS PRN PO MILD PAIN / TEMP Last administered on 07/21/16 22:46; Start 07/20/16 at 12:45 Hydralazine HCl (Apresoline) 10 mg PRN Q4HRS PRN IVP ELEVATED BP, SEE COMMENTS ; Start 07/20/16 at 12:45 Ondansetron HCl (Zofran) 4 mg PRN Q8HRS PRN IV NAUSEA/VOMITING Last administered on 07/22/16 05:26; Start 07/20/16 at 12:45 Albuterol Sulfate (Ventolin Neb Soln) 2.5 mg PRN Q4HRS PRN NEB SHORTNESS OF BREATH; Start 07/20/16 at 12:45 Ciprofloxacin Lactate 200 ml @ 200 mls/hr Q12HR IV Last administered on 08:58; Start 07/20/16 at 13:30 Metronidazole 100 ml @ 100 mls/hr Q8HRS IV Last administered on 07/23/16 05: 32; Start 07/20/16 at 14:00 Pantoprazole Sodium (Protonix Vial) 40 mg DAILYAC IVP Last administered on 07/23 08:56; Start 07/20/16 at 12:45 Hydromorphone HCl (Dilaudid) 0.5 mg PRN Q2HRS PRN IVP PAIN Last administered on 07/20/16 17:40; Start 07/20/16 at 12:45; Stop 07/20/16 at 20:37; Status DC Sodium Chloride 500 ml @ 500 mls/hr 1X ONCE IV Last administered on 14:43; Start 07/20/16 at 12:45; Stop 07/20/16 at 13:44; Status DC Sodium Chloride 1,000 ml @ 125 mls/hr Q8H IV ; Start 07/20/16 at 20:00; Stop at 20:35; Status DC Dextrose/Sodium Chloride 1,000 ml @ 100 mls/hr Q10H IV Last administered on 21:21; Start 07/20/16 at 20:45; Stop 07/21/16 at 20:44; Status DC Hydromorphone HCl (Dilaudid) 0.5 mg PRN Q1HR PRN IVP PAIN Last administered on 07/22/16 00:43; Start 07/21/16 at 06:00 Fludrocortisone Acetate (Florinef) 0.1 mg PRN DAILY PRN PO DIRECTED BY MD; Start 07/21/16 at 06:15 Non-Formulary Medication 99 mg PRN PRN PO SEE COMMENTS; Start 07/21/16 at 06:15 ; Status UNV Active Scripts Active Hydrocodone-Apap 5-325 (Hydrocodone Bit/Acetaminophen) 1 Each Tablet 1 Tab PO PRN Q6HRS PRN Proair Hfa Inhaler (Albuterol Sulfate) 8.5 Gm Hfa.aer.ad 1 Puff INH PRN Q6HRS PRN [place] 5-325 Tablet (Acetaminophen/Hydrocodone Bitart) 1 Each Tablet 1-2 Tab PO Q4-6HRS Reported Cyclobenzaprine Hcl 10 Mg Tablet 1 Tab PO PRN PRN Gabapentin 300 Mg Capsule 300 Mg PO BID Potassium Gluconate 99 Mg Tablet 99 Mg PO PRN PRN takes for "adrenaline attack" Fludrocortisone Acetate 0.1 Mg Tablet 0.1 Mg PO PRN patient takes for "adrenaline attack" Oxycodone Hcl 5 Mg Capsule 5 Mg PO PRN Q6HRS PRN Vitals/I & O Vital Sign - Last 24 Hours 07/22/16 07/22/16 07/22/16 07/22/16 15:00 19:58 20:00 23:30 Temp 98.6 97.7 98.6 98.6 97.7 98.6 Pulse 72 72 70 Resp 16 18 18 B/P (MAP) 110/60 (77) 100/60 (73) 98/52 (67) Pulse Ox 98 97 O2 Delivery Room Air Room Air Room Air O2 Flow Rate 2.0 07/23/16 07/23/16 07/23/16 07:00 08:00 08:07 Temp 98.8 98.8 Pulse 78 Resp 18 B/P (MAP) 105/55 (72) Pulse Ox 97 98 O2 Delivery Room Air Room Air Room Air Intake and Output 07/22/16 07/22/16 07/23/16 15:00 23:00 07:00 Intake Total 580 ml 1010 ml 300 ml Output Total 1350 ml 2 ml Balance 580 ml -340 ml 298 ml YARIEL YEAGER III DO July 23, 2016 11:13
== END 2016-07-23 14:30 | disposition home or self-care (01) | DRG 392 ==
LOC: ER 22:06 → 5 NORTH 07-20 00:21
PROVIDERS: ADMIT Internal Medicine; ATTEND Internal Medicine
DX: A08.4 Viral intestinal infection, unspecified (principal); E44.1 Mild protein-calorie malnutrition; E87.1 Hypo-osmolality and hyponatremia; E27.40 Unspecified adrenocortical insufficiency; I95.9 Hypotension, unspecified; E86.0 Dehydration; I10 Essential (primary) hypertension; J45.909 Unspecified asthma, uncomplicated; Z90.49 Acquired absence of other specified parts of digestive tract; Z88.6 Allergy status to analgesic agent; Z88.5 Allergy status to narcotic agent; Z88.2 Allergy status to sulfonamides; Z90.710 Acquired absence of both cervix and uterus; Z90.721 Acquired absence of ovaries, unilateral; Z68.29 Body mass index [BMI] 29.0-29.9, adult; Z91.041 Radiographic dye allergy status
CPT/HCPCS: 36415; 74176; 80048; 80053; 81001; 82533; 83605; 83690; 84484; 85007; 85027; 87040; 87045; 87324; 87329; 93005; 94250; 94760; 96374; C9113; J0744; J1170; J2405; J3010; J3490; J7030; J7040; J7042; 99285-25

== ENCOUNTER 2016-12-23 18:27 | Emergency (ER) | payer OTHER ==
[~2016-12-23 18:27] MED LIST changes: +CYCL10TA2 PO; +GABA-586 PO; -HYDR-2666 PO; +HYDR-2758 PO; +OXYC5CAP PO; -OXYC5CAP3 PO; -POTA99TA2 PO; +POTA99TA3 PO
[2016-12-23] MEDS ORDERED: IV NORMAL SALINE 1000ML BAG 1,000 ML IV SCH (19:34)
[2016-12-23] MEDS ORDERED: HALOPERIDOL LACTATE 5 MG/ML VIAL. IVP ONE (19:45)
--- NOTE | 2016-12-23 19:50 | PHYS DOC ---
Past Medical History Past Medical History: Asthma Additional Past Medical Histor: chest pain, "back pain"CHRONIC DIZZINESS, Past Surgical History: Cholecystectomy, Hysterectomy Additional Past Surgical Histo: left and right hand surgery, back surgery,NECK SURGERY Alcohol Use: None Drug Use: None Adult General Chief Complaint Chief Complaint: MULTIPLE COMPLAINTS HPI HPI Patient is a 46 year old female who presents with complaint of pain and tightness to her neck and jaw. Patient states that she has history of cervical spinal stenosis and has had history of episodes resulting in dizziness and neck pain and tightness. The patient states when she normally gets these episodes she takes potassium and fludrocortisone. Patient states she took her medications , however these did not help relieve her symptoms, thus she came to the emergency department for evaluation. The patient denies any history of heart problems. The patient states that she follows with physicians at for treatment of her back problems. The patient states that she has had associated dizziness and generalized weakness with her symptoms. Patient rates pain currently as 10 out of 10. Review of Systems Review of Systems Constitutional: Dizziness, denies fever or chills [] Eyes: Denies change in visual acuity, redness, or eye pain [] HENT: Jaw tightness, denies nasal congestion or sore throat [] Respiratory: Denies cough or shortness of breath [] Cardiovascular: Denies chest pain or edema [] GI: Denies abdominal pain, nausea, vomiting, bloody stools or diarrhea [] : Denies dysuria or hematuria [] Musculoskeletal: Neck pain[] Integument: Denies rash or skin lesions [] Neurologic: Denies headache, focal weakness or sensory changes [] Current Medications Current Medications Current Medications Medications (Trade) Dose Ordered Sig/Cordelia Start Time Stop Time Status Last Admin Dose Admin Diazepam (Valium) 2 mg 1X ONCE 12/23/16 19:45 12/23/16 19:46 DC 12/23/16 20:11 2 MG Haloperidol Lactate (Haldol) 2 mg 1X ONCE 12/23/16 19:45 12/23/16 19:46 DC 12/23/16 20:09 2 MG Sodium Chloride 1,000 ml @ 1,000 mls/hr Q1H 12/23/16 19:34 12/23/16 20:33 DC 12/23/16 20:12 1,000 MLS/HR Allergies Allergies Allergies Coded Allergies Type Severity Reaction Last Updated Verified Iodinated Contrast- Oral and IV Dye Allergy Intermediate 10/15/13 Yes Sulfa (Sulfonamide Antibiotics) Allergy Intermediate Unknown 10/15/13 Yes aspirin Allergy Intermediate 07/20/16 Yes codeine Allergy Intermediate 07/20/16 Yes guaifenesin Allergy Intermediate 07/20/16 Yes ibuprofen Allergy Intermediate 07/20/16 Yes morphine Allergy Intermediate Patient is can take PO Morphine 07/20/16 Yes pamabrom Allergy Intermediate 07/20/16 Yes Latex, Natural Rubber Allergy Mild ITCHY, RASH 08/02/15 Yes Physical Exam Physical Exam Constitutional: Alert, afebrile, appears anxious and in moderate discomfort. [] HENT: Normocephalic, atraumatic, bilateral external ears normal, oropharynx moist, no oral exudates, nose normal. [] Eyes: PERRLA, EOMI, conjunctiva normal, no discharge. [] Neck: Left paraspinous muscle tightness and spasm with palpable tenderness, no midline tenderness, trachea midline, no stridor. [] Cardiovascular:Heart rate regular rhythm, no murmur [] Lungs & Thorax: Bilateral breath sounds clear to auscultation [] Abdomen: Bowel sounds normal, soft, no tenderness, no masses, no pulsatile masses. [] Skin: Warm, dry, no erythema, no rash. [] Back: No tenderness, no CVA tenderness. [] Extremities: No tenderness, no cyanosis, no clubbing, ROM intact, no edema. [] Neurologic: Alert and oriented X 3, normal motor function, normal sensory function, no focal deficits noted. [] Current Patient Data Vital Signs Vital Signs Date Time Temp Pulse Resp B/P (MAP) Pulse Ox O2 Delivery O2 Flow Rate FiO2 12/23/16 18:51 98.0 77 20 127/81 (96) 98 Room Air 98.0 Lab Values Laboratory Tests Test 12/23/16 20:00 White Blood Count 8.3 x10^3/uL (4.0-11.0) Red Blood Count 4.61 x10^6/uL (3.50-5.40) Hemoglobin 14.1 g/dL (12.0-15.5) Hematocrit 42.2 % (36.0-47.0) Mean Corpuscular Volume 92 fL (79-100) Mean Corpuscular Hemoglobin 31 pg (25-35) Mean Corpuscular Hemoglobin Concent 34 g/dL (31-37) Red Cell Distribution Width 14.4 % (11.5-14.5) Platelet Count 282 x10^3/uL (140-400) Neutrophils (%) (Auto) 69 % (31-73) Lymphocytes (%) (Auto) 22 % (24-48) L Monocytes (%) (Auto) 7 % (0-9) Eosinophils (%) (Auto) 2 % (0-3) Basophils (%) (Auto) 1 % (0-3) Neutrophils # (Auto) 5.7 x10^3uL (1.8-7.7) Lymphocytes # (Auto) 1.8 x10^3/uL (1.0-4.8) Monocytes # (Auto) 0.6 x10^3/uL (0.0-1.1) Eosinophils # (Auto) 0.2 x10^3/uL (0.0-0.7) Basophils # (Auto) 0.0 x10^3/uL (0.0-0.2) Urine Color Yellow Urine Clarity Clear Urine pH 5.5 Urine Specific [place] 1.010 Urine Protein Negative mg/dL (NEG-TRACE) Urine Glucose (UA) Negative mg/dL (NEG) Urine Ketones (Stick) Trace mg/dL (NEG) Urine Blood Negative (NEG) Urine Nitrite Negative (NEG) Urine Bilirubin Negative (NEG) Urine Urobilinogen Dipstick 0.2 mg/dL (0.2 mg/dL) Urine Leukocyte Esterase Negative (NEG) Urine RBC 0 /HPF (0-2) Urine WBC 0 /HPF (0-4) Urine Squamous Epithelial Cells Occ /LPF Urine Bacteria 0 /HPF (0-FEW) Sodium Level 141 mmol/L (136-145) Potassium Level 4.1 mmol/L (3.5-5.1) Chloride Level 105 mmol/L (98-107) Carbon Dioxide Level 28 mmol/L (21-32) Anion Gap 8 (6-14) Blood Urea Nitrogen 14 mg/dL (7-20) Creatinine 0.8 mg/dL (0.6-1.0) Estimated GFR (Cockcroft-Gault) 76.9 BUN/Creatinine Ratio 18 (6-20) Glucose Level 100 mg/dL (70-99) H Calcium Level 8.8 mg/dL (8.5-10.1) Total Bilirubin 0.3 mg/dL (0.2-1.0) Aspartate Amino Transferase (AST) 13 U/L (15-37) L Alanine Aminotransferase (ALT) 17 U/L (14-59) Alkaline Phosphatase 71 U/L (46-116) Total Protein 7.8 g/dL (6.4-8.2) Albumin 3.5 g/dL (3.4-5.0) Albumin/Globulin Ratio 0.8 (1.0-1.7) L Laboratory Tests 12/23/16 20:00 Laboratory Tests 12/23/16 20:00 EKG EKG Not performed[] Radiology/Procedures Radiology/Procedures Not performed[] Course & Med Decision Making Course & Med Decision Making Pertinent Labs and Imaging studies reviewed. (See chart for details) Patient was given IV Haldol and Ativan in the emergency department. The patient reports significant improvement in symptoms and feels much better after administration. The patient's blood work is unremarkable. The patient states that she has medications for pain at home that she can continue for treatment of her exacerbation of chronic back pain. Advised return to emergency department for any worsening symptoms and recommended follow-up in 2 days with primary doctor for reevaluation. Patient voiced understanding and in agreement with treatment plan. Dragon Disclaimer Dragon Disclaimer This electronic medical record was generated, in whole or in part, using a voice recognition dictation system. Departure Departure Impression: Primary Impression: Neck pain Disposition: HOME, SELF-CARE Condition: IMPROVED Referrals: EDY SANABRIA MD (PCP) Patient Instructions: Muscle Strain Additional Instructions: Follow-up with your primary doctor in the next 2 days for reevaluation. Return to the emergency department for any worsening symptoms. XUAN GREEN MD Dec 23, 2016 19:50
[2016-12-23 20:10] LABS: BASO % 1 % (0-3); BILIRUBIN,URINE NEGATIVE (NEG); EOS % 2 % (0-3); GLUCOSE,URINE NEGATIVE (NEG); HEMATOCRIT 42.2 % (36.0-47.0); HEMOGLOBIN 14.1 g/dL (12.0-15.5); LYMPH # 1.8 x10^3/uL (1.0-4.8); LYMPH % 22 % (24-48); MEAN CORPUSCULAR HEMOGLOBIN 31 pg (25-35); MEAN CORPUSCULAR HGB CONC 34 g/dL (31-37); MEAN CORPUSCULAR VOLUME 92 fL (79-100); MONO % 7 % (0-9); NEUT % 69 % (31-73); NITRITE,URINE NEGATIVE (NEG); PH,URINE 5.5; PLATELET COUNT 282 x10^3/uL (140-400); PROTEIN,URINE NEGATIVE (NEG-TRACE); RED BLOOD COUNT 4.61 x10^6/uL (3.50-5.40); RED CELL DISTRIBUTION WIDTH 14.4 % (11.5-14.5); UROBILINOGEN,URINE 0.2 mg/dL (0.2 mg/dL); WHITE BLOOD COUNT 8.3 x10^3/uL (4.0-11.0)
[2016-12-23 20:17] LABS: BACTERIA,URINE 0 /HPF (0-FEW); RBC,URINE 0 /HPF (0-2); WBC,URINE 0 /HPF (0-4)
[2016-12-23 20:18] LABS: SQUAMOUS EPITHELIAL CELL,UR OCC /LPF
[2016-12-23 20:24] LABS: CALCIUM 8.8 mg/dL (8.5-10.1); CREATININE 0.8 mg/dL (0.6-1.0); GFR 76.9; POTASSIUM 4.1 mmol/L (3.5-5.1)
[2016-12-23 20:30] LABS: ALBUMIN 3.5 g/dL (3.4-5.0); ALBUMIN/GLOBULIN RATIO 0.8 (1.0-1.7); TOTAL BILIRUBIN 0.3 mg/dL (0.2-1.0); TOTAL PROTEIN 7.8 g/dL (6.4-8.2)
[2016-12-23 21:13] VITALS: BP 148/68
== END 2016-12-23 21:13 | disposition home or self-care (01) ==
LOC: ER 18:27
DX: M54.2 Cervicalgia (principal); R68.84 Jaw pain; R42 Dizziness and giddiness; J45.909 Unspecified asthma, uncomplicated; Z88.2 Allergy status to sulfonamides; Z88.6 Allergy status to analgesic agent; Z91.041 Radiographic dye allergy status; Z91.040 Latex allergy status; Z91.013 Allergy to seafood; Z88.5 Allergy status to narcotic agent; Z88.8 Allergy status to other drugs, medicaments and biological substances
CPT/HCPCS: 36415; 80053; 81001; 85025; 96361; 96374; 96375; 99284; J1630; J3360; J7030

== ENCOUNTER → 2017-01-27 | Outpatient (CLI) | payer OTHER ==
--- NOTE | 2017-01-27 13:23 | KCIC ---
Pelvic ultrasound dated 01/27/2017. No comparison available. Clinical indication: Right lower quadrant pelvic pain. FINDINGS: Transabdominal and transvaginal imaging performed. The uterus is surgically absent. No apparent abnormality at the vaginal cuff. Left ovary measures 2.4 x 1.7 x 1.7 cm. Right ovary is not identified. No adnexal mass or free fluid. IMPRESSION: 1. No acute sonographic abnormality. 2. Status post hysterectomy and right oophrectomy. Electronically signed by: Greg Baig MD (01/27/2017 1:20 PM) [id number]
== END | disposition home or self-care (01) ==
LOC: KCIC US 11:57
PROVIDERS: ATTEND Obstetrics & Gynecology
DX: R10.2 Pelvic and perineal pain (principal); Z90.710 Acquired absence of both cervix and uterus
CPT/HCPCS: 76830; 76856

== ENCOUNTER 2017-04-09 23:28 | Emergency (ER) | payer OTHER | END 2017-04-10 00:32 | disposition home or self-care (01) | LOC: ER 23:28 | DX: S93.401A Sprain of unspecified ligament of right ankle, initial encounter (principal); J45.909 Unspecified asthma, uncomplicated; Z88.5 Allergy status to narcotic agent; Z88.2 Allergy status to sulfonamides; Z88.8 Allergy status to other drugs, medicaments and biological substances; Z88.6 Allergy status to analgesic agent; Z91.041 Radiographic dye allergy status; Z91.040 Latex allergy status; W00.0XXA Fall on same level due to ice and snow, initial encounter; Y93.29 Activity, other involving ice and snow; Y92.89 Other specified places as the place of occurrence of the external cause; Y99.8 Other external cause status | CPT/HCPCS: 73610; 99284 ==

== ENCOUNTER 2017-04-15 02:13 | Inpatient (IN) | payer OTHER ==
[2017-04-15 03:28] LABS: BASO % 0 % (0-3); EOS # 0.1 x10^3/uL (0.0-0.7); EOS % 1 % (0-3); HEMATOCRIT 45.7 % (36.0-47.0); HEMOGLOBIN 15.3 g/dL (12.0-15.5); LYMPH # 0.6 x10^3/uL (1.0-4.8); LYMPH % 4 % (24-48); MEAN CORPUSCULAR HEMOGLOBIN 31 pg (25-35); MEAN CORPUSCULAR HGB CONC 34 g/dL (31-37); MEAN CORPUSCULAR VOLUME 91 fL (79-100); MONO # 0.4 x10^3/uL (0.0-1.1); MONO % 3 % (0-9); NEUT # 14.2 x10^3uL (1.8-7.7); NEUT % 93 % (31-73); PLATELET COUNT 235 x10^3/uL (140-400); RED BLOOD COUNT 5.03 x10^6/uL (3.50-5.40); RED CELL DISTRIBUTION WIDTH 14.7 % (11.5-14.5); WHITE BLOOD COUNT 15.4 x10^3/uL (4.0-11.0)
[2017-04-15 03:43] LABS: ANION GAP 10 (6-14); BLOOD UREA NITROGEN 17 mg/dL (7-20); BUN/CREATININE RATIO 24 (6-20); CALCIUM 8.7 mg/dL (8.5-10.1); CARBON DIOXIDE 27 mmol/L (21-32); CHLORIDE 102 mmol/L (98-107); CREATININE 0.7 mg/dL (0.6-1.0); GFR 89.7; GLUCOSE 145 mg/dL (70-99); SODIUM 139 mmol/L (136-145)
[2017-04-15 03:47] LABS: ETHANOL < 10 mg/dL (0-10)
[2017-04-15 03:51] LABS: ALBUMIN 3.3 g/dL (3.4-5.0); ALBUMIN/GLOBULIN RATIO 0.8 (1.0-1.7); ALK PHOS 63 U/L (46-116); ALT (SGPT) 16 U/L (14-59); AST (SGOT) 18 U/L (15-37); LIPASE 146 U/L (73-393); TOTAL BILIRUBIN 0.9 mg/dL (0.2-1.0); TOTAL PROTEIN 7.5 g/dL (6.4-8.2)
[2017-04-15 03:52] LABS: ADD MAN DIFF? YES
[2017-04-15] MEDS: IV NORMAL SALINE 1000ML BAG 1,000 ML IV ×2 (04:59→06:15)
[2017-04-15 05:01] LABS: % BANDS 12 % (0-9); % EOS 2 % (0-5); % LYMPHS 3 % (24-48); % MONOS 2 % (0-10); % SEGS 81 % (35-66)
[2017-04-15] MEDS: fentaNYL PF VIAL 100 MCG/2 ML VIAL IV (05:01)
[2017-04-15] MEDS: ONDANSETRON PF 4 MG/2 ML VIAL. IV ×2 (05:01→15:13)
[2017-04-15 05:02] LABS: PLT ESTIMATE ADEQUATE (ADEQUATE)
[2017-04-15] MEDS ORDERED: cefTRIAXone SODIUM 2 GM in IV DEXTROSE 5% 100 ML IV (06:00)
[2017-04-15 06:04] LABS: URINE HCG POC HCG NEGATIVE (Negative)
[2017-04-15 06:17] LABS: AMPHETAMINE/METHAMPHETAMINE NEG (NEG); BARBITURATES NEG (NEG); BENZODIAZEPINES NEG (NEG); CANNABINOIDS NEG (NEG); COCAINE NEG (NEG); ETHANOL, URINE NEG (NEG); METHADONE NEG (NEG); OPIATES POS (NEG); PHENCYCLIDINE NEG (NEG)
[2017-04-15 06:20] LABS: BILIRUBIN,URINE NEGATIVE (NEG); CLARITY,URINE TURBID; COLOR,URINE YELLOW; GLUCOSE,URINE NEGATIVE (NEG); NITRITE,URINE NEGATIVE (NEG); PROTEIN,URINE NEGATIVE (NEG-TRACE); UROBILINOGEN,URINE 0.2 mg/dL (0.2 mg/dL)
[2017-04-15 06:35] LABS: AMORPHOUS SEDIMENT,UR PRESENT /HPF; BACTERIA,URINE 0 /HPF (0-FEW); RBC,URINE 0 /HPF (0-2); SQUAMOUS EPITHELIAL CELL,UR OCC /LPF; WBC,URINE 0 /HPF (0-4)
[2017-04-15 06:54] LABS: LACTIC ACID 1.1 mmol/L (0.4-2.0)
[2017-04-15] MEDS: cefTRIAXone IV Push 2 GM VIAL. IVP (08:41)
[2017-04-15] MEDS: ACETAMINOPHEN 325 MG TABLET. PO (15:11)
[2017-04-15] MEDS ORDERED: NON FORMULARY ITEM (Potassium Gluconate 99 MG) PO (19:30)
[2017-04-15] MEDS ORDERED: ENOXAPARIN 40 MG/0.4 ML SYRINGE. SQ (19:45)
[2017-04-15] MEDS: LACTOBACILLUS RHAMNOSUS GG 1 CAPSULE. PO (20:49)
[2017-04-15] MEDS: ENOXAPARIN 40 MG/0.4 ML SYRINGE. SQ (20:50)
[2017-04-15] MEDS ORDERED: GABAPENTIN 300 MG CAPSULE. PO (21:00)
[2017-04-15] MEDS: traMADol 50 MG TABLET PO (21:01)
[2017-04-15] MEDS: CIPROFLOXACIN 400MG PREMIX 200 ML IV (21:01)
[2017-04-16] MEDS: ONDANSETRON PF 4 MG/2 ML VIAL. IV ×3 (00:22→17:51)
[2017-04-16] MEDS: fentaNYL PF VIAL 100 MCG/2 ML VIAL IV (00:23)
[2017-04-16 05:38] LABS: ADD MAN DIFF? NO
[2017-04-16 06:05] LABS: BASO % 0 % (0-3); EOS % 1 % (0-3); HEMATOCRIT 40.7 % (36.0-47.0); HEMOGLOBIN 13.6 g/dL (12.0-15.5); LYMPH # 0.8 x10^3/uL (1.0-4.8); LYMPH % 12 % (24-48); MEAN CORPUSCULAR HEMOGLOBIN 30 pg (25-35); MEAN CORPUSCULAR HGB CONC 33 g/dL (31-37); MEAN CORPUSCULAR VOLUME 91 fL (79-100); MONO # 0.4 x10^3/uL (0.0-1.1); MONO % 6 % (0-9); NEUT # 5.7 x10^3uL (1.8-7.7); NEUT % 81 % (31-73); PLATELET COUNT 192 x10^3/uL (140-400); RED BLOOD COUNT 4.46 x10^6/uL (3.50-5.40); RED CELL DISTRIBUTION WIDTH 14.4 % (11.5-14.5)
[2017-04-16 06:34] LABS: ANION GAP 8 (6-14); BLOOD UREA NITROGEN 5 mg/dL (7-20); CALCIUM 8.1 mg/dL (8.5-10.1); CARBON DIOXIDE 28 mmol/L (21-32); CHLORIDE 104 mmol/L (98-107); CREATININE 0.6 mg/dL (0.6-1.0); GFR 107.2; GLUCOSE 87 mg/dL (70-99); POTASSIUM 3.3 mmol/L (3.5-5.1); SODIUM 140 mmol/L (136-145)
[2017-04-16] MEDS: LACTOBACILLUS RHAMNOSUS GG 1 CAPSULE. PO ×2 (08:17→20:38)
[2017-04-16] MEDS: ACETAMINOPHEN 325 MG TABLET. PO ×2 (08:17→17:51)
[2017-04-16] MEDS: CIPROFLOXACIN 400MG PREMIX 200 ML IV ×2 (08:19→20:41)
[2017-04-16] MEDS: FAMOTIDINE 20 MG/2 ML VIAL IVP ×2 (11:16→20:39)
[2017-04-16] MEDS: POTASSIUM CHLORIDE 10MEQ 100 ML IV ×3 (11:17→17:53)
[2017-04-16] MEDS: POTASSIUM CHLORIDE 20 MEQ TABLET.ER. PO (15:30)
[2017-04-16] MEDS: HYDROcodone/APAP 5/325MG 1 TAB TABLET PO (20:39)
[2017-04-16] MEDS: ENOXAPARIN 40 MG/0.4 ML SYRINGE. SQ (20:40)
[2017-04-17] MEDS: ONDANSETRON PF 4 MG/2 ML VIAL. IV (00:35)
[2017-04-17] MEDS ORDERED: SURGICEL HEMOSTAT 4X8 EACH. (06:47)
[2017-04-17] MEDS ORDERED: KETOROLAC 30 MG/ML INJ FOR OR. INJ (07:44)
[2017-04-17] MEDS ORDERED: ONDANSETRON PF 4 MG/2 ML VIAL. (07:44)
[2017-04-17] MEDS ORDERED: LIDOCAINE 2% PF Vial for OR 5 ML VIAL. (07:44)
[2017-04-17] MEDS ORDERED: FAMOTIDINE 20 MG/2 ML VIAL (07:44)
[2017-04-17] MEDS ORDERED: DEXAMETHASONE SOD PHOS 20 MG/5 ML VIAL. (07:44)
[2017-04-17] MEDS ORDERED: PROPOFOL 20 ML IV (07:44)
[2017-04-17] MEDS ORDERED: ROCURONIUM 50 MG/5 ML VIAL. (07:45)
[2017-04-17] MEDS ORDERED: MIDAZOLAM HCL/PF 2 MG/2 ML VIAL. (07:45)
[2017-04-17] MEDS ORDERED: fentaNYL PF VIAL 100 MCG/2 ML VIAL (07:45)
[2017-04-17] MEDS: IV RINGERS,LACTATED 1000ML 1,000 ML IV (08:30)
[2017-04-17] MEDS: BUPIVACAINE-EPI 0.25%-1:200000 50 ML VIAL. (08:30)
[2017-04-17] MEDS ORDERED: GLYCOPYRROLATE 1 MG/5 ML VIAL. (08:35)
[2017-04-17] MEDS ORDERED: NEOSTIGMINE METHYLSULFATE 5 MG/5 ML SYRINGE. (08:35)
[2017-04-17] MEDS ORDERED: LIDOCAINE 1% PF 2 ML VIAL. ID (08:45)
[2017-04-17] MEDS ORDERED: fentaNYL PF VIAL 100 MCG/2 ML VIAL IV (08:45)
[2017-04-17] MEDS ORDERED: SEVOFLURANE 31 TO 60 MINUTES. IH (08:49)
[2017-04-17] MEDS: LACTOBACILLUS RHAMNOSUS GG 1 CAPSULE. PO ×2 (09:00→21:03)
[2017-04-17] MEDS: FAMOTIDINE 20 MG/2 ML VIAL IVP ×2 (09:00→21:03)
[2017-04-17] MEDS: CIPROFLOXACIN 400MG PREMIX 200 ML IV ×2 (09:00→21:02)
[2017-04-17] MEDS ORDERED: CALCIUM CARBONATE 500 MG TAB.CHEW PO (09:15)
[2017-04-17] MEDS ORDERED: diphenhydrAMINE HCL 25 MG CAPSULE PO (09:15)
[2017-04-17] MEDS ORDERED: ZOLPIDEM 5 MG TABLET. PO (09:15)
[2017-04-17] MEDS ORDERED: ONDANSETRON PF 4 MG/2 ML VIAL. IV (09:15)
[2017-04-17] MEDS ORDERED: traMADol 50 MG TABLET PO (09:15)
[2017-04-17] MEDS ORDERED: PROCHLORPERAZINE 10 MG/2 ML VIAL. IV (09:15)
[2017-04-17] MEDS ORDERED: 0.9 % SODIUM CHLORIDE 10 ML DISP.SYRIN. IV (09:15)
[2017-04-17] MEDS ORDERED: DEXTROSE 50% 25 GM / 50ML DISP.SYRIN. IV (09:15)
[2017-04-17] MEDS: fentaNYL PF VIAL 100 MCG/2 ML VIAL IV ×5 (09:30→16:09)
[2017-04-17] MEDS: PROCHLORPERAZINE 10 MG/2 ML VIAL. IV (09:31)
[2017-04-17] MEDS: GABAPENTIN 300 MG CAPSULE. PO ×2 (14:00→21:49)
[2017-04-17] MEDS: diphenhydrAMINE 50 MG/ML VIAL IV (16:10)
[2017-04-17] MEDS: ENOXAPARIN 40 MG/0.4 ML SYRINGE. SQ (21:03)
[2017-04-17] MEDS: HYDROcodone/APAP 5/325MG 1 TAB TABLET PO (21:56)
[2017-04-18] MEDS: SIMETHICONE 80 MG TAB.CHEW PO ×2 (01:16→08:37)
[2017-04-18] MEDS: GABAPENTIN 300 MG CAPSULE. PO (05:30)
[2017-04-18 05:49] LABS: ADD MAN DIFF? NO
[2017-04-18 06:07] LABS: BASO % 0 % (0-3); EOS % 0 % (0-3); HEMATOCRIT 39.7 % (36.0-47.0); HEMOGLOBIN 13.5 g/dL (12.0-15.5); LYMPH # 0.7 x10^3/uL (1.0-4.8); LYMPH % 8 % (24-48); MEAN CORPUSCULAR HEMOGLOBIN 31 pg (25-35); MEAN CORPUSCULAR HGB CONC 34 g/dL (31-37); MEAN CORPUSCULAR VOLUME 90 fL (79-100); MONO # 0.5 x10^3/uL (0.0-1.1); MONO % 6 % (0-9); NEUT # 7.2 x10^3uL (1.8-7.7); NEUT % 86 % (31-73); PLATELET COUNT 219 x10^3/uL (140-400); RED BLOOD COUNT 4.43 x10^6/uL (3.50-5.40); WHITE BLOOD COUNT 8.4 x10^3/uL (4.0-11.0)
[2017-04-18 08:11] LABS: POTASSIUM 3.8 mmol/L (3.5-5.1)
[2017-04-18] MEDS: LACTOBACILLUS RHAMNOSUS GG 1 CAPSULE. PO (08:37)
[2017-04-18] MEDS: HYDROcodone/APAP 5/325MG 1 TAB TABLET PO (08:38)
[2017-04-18] MEDS: FAMOTIDINE 20 MG/2 ML VIAL IVP (08:39)
[2017-04-18] MEDS: CIPROFLOXACIN 400MG PREMIX 200 ML IV (08:54)
[2017-04-18] MEDS: FLU VACC QS2017-18 (36MOS+)/PF 0.5 ML SYRINGE. VAX IM (13:59)
[2017-04-18] MEDS ORDERED: metroNIDAZOLE 500 MG TABLET PO (21:00)
[2017-04-18] MEDS ORDERED: CIPROFLOXACIN HCL 250 MG TABLET. PO (21:00)
[2017-04-19 17:12] LABS: ACTH <1.0 pg/mL (7.2-63.3)
== END 2017-04-18 15:08 | disposition home or self-care (01) | DRG 854 ==
LOC: ER 02:13 → 3 NORTH 04-17 10:24 → 5 SOUTH 04:47
PROC: 0UT54ZZ Resection of Right Fallopian Tube, Percutaneous Endoscopic Approach (ICD-10-PCS; principal; 2017-04-17 08:00)
PROC: 0UT04ZZ Resection of Right Ovary, Percutaneous Endoscopic Approach (ICD-10-PCS; 2017-04-17 08:00)
DX: A41.9 Sepsis, unspecified organism (principal); N39.0 Urinary tract infection, site not specified; E78.5 Hyperlipidemia, unspecified; K52.9 Noninfective gastroenteritis and colitis, unspecified; E87.6 Hypokalemia; G43.909 Migraine, unspecified, not intractable, without status migrainosus; G89.29 Other chronic pain; J45.909 Unspecified asthma, uncomplicated; K59.00 Constipation, unspecified; N83.291 Other ovarian cyst, right side; Z82.49 Family history of ischemic heart disease and other diseases of the circulatory system; Z83.3 Family history of diabetes mellitus; Z90.49 Acquired absence of other specified parts of digestive tract; Z90.710 Acquired absence of both cervix and uterus; Z90.721 Acquired absence of ovaries, unilateral
CPT/HCPCS: 36415; 74176; 76830; 76856; 80048; 80053; 80307; 81001; 81025; 82024; 82533; 83605; 83690; 83735; 84132; 85007; 85025; 87040; 87491; 87591; 88305; 90686; 96361; 96374; 96375; 99285; 99285-25; A4215; C1782; G0480; J0696; J0744; J0780; J1100; J1200; J1650; J1885; J2250; J2405; J2704; J2710; J3010; J3480; J3490; J7030; J7120; S0028

== ENCOUNTER → 2017-08-13 | Outpatient (CLI) | payer OTHER | END | disposition home or self-care (01) | LOC: KCIC MAMMO 12:42 | DX: R92.8 Other abnormal and inconclusive findings on diagnostic imaging of breast (principal) | CPT/HCPCS: 76641; 77066 ==

== ENCOUNTER 2017-09-07 15:22 | Emergency (ER) | payer OTHER | END 2017-09-07 17:03 | disposition home or self-care (01) | LOC: ER 17:03 | DX: S63.501A Unspecified sprain of right wrist, initial encounter (principal); Z88.2 Allergy status to sulfonamides; Z88.9 Allergy status to unspecified drugs, medicaments and biological substances; Z91.040 Latex allergy status; Z88.5 Allergy status to narcotic agent; Z88.8 Allergy status to other drugs, medicaments and biological substances; Z88.6 Allergy status to analgesic agent; W18.39XA Other fall on same level, initial encounter; Y93.89 Activity, other specified; Y99.8 Other external cause status; Y92.89 Other specified places as the place of occurrence of the external cause | CPT/HCPCS: 73110; 99284 ==

== ENCOUNTER 2017-10-15 15:36 | Emergency (ER) | payer OTHER ==
[~2017-10-15] VITALS: Ht 165.1 cm; Wt 81.6 kg
[~2017-10-15 15:36] MED LIST changes: +CIPR250T30 PO; +METR500T PO; +TRAM50TA PO
[2017-10-15 17:11] VITALS: BP 125/77
[2017-10-15] MEDS ORDERED: fentaNYL PF VIAL 100 MCG/2 ML VIAL IM ONE (17:30)
[2017-10-15] MEDS ORDERED: diazePAM 2 MG TABLET PO ONE (17:30)
--- NOTE | 2017-10-15 17:33 | PHYS DOC ---
Past Medical History Past Medical History: Other Additional Past Medical Histor: ADRENAL FATIGUE Past Surgical History: Hysterectomy Additional Past Surgical Histo: left and right hand surgery, back surgery,NECK SURGERY Alcohol Use: None Drug Use: None Adult General Chief Complaint Chief Complaint: Neck Pain [facility] HPI Patient is a 47 year old female presents the ED complaining of neck pain 3 days. Patient states that she has a history of chronic neck pain and she exacerbated by doing some exercises with her arms a few days ago. States she's been taking her regular medication (norco, gabapentin) but is not improving her pain. Describes the pain as sharp. Rates the pain as 9 out of 10. States same pain as previous exacerbations of her chronic neck pain. Denies weakness, paresthesias, fever, dizziness, headache, nausea/vomiting, chest pain, shortness of breath or dizziness. Review of Systems Review of Systems Constitutional: Denies fever or chills [] Eyes: Denies change in visual acuity, redness, or eye pain [] HENT: Denies nasal congestion or sore throat [] Respiratory: Denies cough or shortness of breath [] Cardiovascular: No additional information not addressed in HPI [] GI: Denies abdominal pain, nausea, vomiting, bloody stools or diarrhea [] : Denies dysuria or hematuria [] Musculoskeletal: Complains of neck pain. Denies back pain. Integument: Denies rash or skin lesions [] Neurologic: Denies headache, focal weakness or sensory changes [] All other systems were reviewed and found to be within normal limits, except as documented in this note. Current Medications Current Medications Current Medications Medications (Trade) Dose Ordered Sig/Cordelia Start Time Stop Time Status Last Admin Dose Admin Diazepam (Valium) 2 mg 1X ONCE 10/15/17 17:30 10/15/17 17:31 DC 10/15/17 17:38 2 MG Fentanyl Citrate (Fentanyl 2ml Vial) 75 mcg 1X ONCE 10/15/17 17:30 10/15/17 17:31 DC 10/15/17 17:39 75 MCG Allergies Allergies Allergies Coded Allergies Type Severity Reaction Last Updated Verified Iodinated Contrast- Oral and IV Dye Allergy Intermediate 10/15/13 Yes Sulfa (Sulfonamide Antibiotics) Allergy Intermediate Unknown 10/15/13 Yes aspirin Allergy Intermediate 07/20/16 Yes codeine Allergy Intermediate 07/20/16 Yes guaifenesin Allergy Intermediate 07/20/16 Yes ibuprofen Allergy Intermediate 07/20/16 Yes morphine Allergy Intermediate Patient is can take PO Morphine 07/20/16 Yes pamabrom Allergy Intermediate 07/20/16 Yes Latex, Natural Rubber Allergy Mild ITCHY, RASH 08/02/15 Yes Physical Exam Physical Exam Constitutional: Well developed, well nourished, no acute distress, non-toxic appearance. [] HENT: Normocephalic, atraumatic, bilateral external ears normal, oropharynx moist, no oral exudates, nose normal. [] Eyes: PERRLA, EOMI, conjunctiva normal, no discharge. [] Neck: Normal range of motion, no bony tenderness, supple, no stridor. [] Cardiovascular:Heart rate regular rhythm, no murmur [] Lungs & Thorax: Bilateral breath sounds clear to auscultation [] Abdomen: Bowel sounds normal, soft, no tenderness, no masses, no pulsatile masses. [] Skin: Warm, dry, no erythema, no rash. [] Neurologic: Alert and oriented X 3, normal motor function, normal sensory function, no focal deficits noted. [] Psychologic: Affect normal, judgement normal, mood normal. [] Current Patient Data Vital Signs Vital Signs Date Time Temp Pulse Resp B/P (MAP) Pulse Ox O2 Delivery O2 Flow Rate FiO2 10/15/17 17:39 18 10/15/17 17:11 98.4 94 125/77 (93) 95 Room Air 98.4 EKG EKG [] Radiology/Procedures Radiology/Procedures [] Course & Med Decision Making Course & Med Decision Making Pertinent Labs and Imaging studies reviewed. (See chart for details) []No bony tenderness. No x-ray warranted. No focal neural deficits. Same symptoms as previous exacerbations of her chronic pain. Patient's pain improved in the ED. States she is feeling much better. Discussed symptomatic treatment outpatient. Patient has follow-up with her PCP later this week. Discussed reasons to return to the ED. Patient understands and agrees with plan. Dragon Disclaimer Dragon Disclaimer This electronic medical record was generated, in whole or in part, using a voice recognition dictation system. Departure Departure Impression: Primary Impression: Neck pain Disposition: 01 HOME, SELF-CARE Condition: IMPROVED Referrals: EYD SANABRIA MD (PCP) Patient Instructions: Chronic Pain JOSUE TSE Oct 15, 2017 17:32
== END 2017-10-15 18:45 | disposition home or self-care (01) ==
LOC: ER 15:36
DX: G89.29 Other chronic pain (principal); M54.2 Cervicalgia; Z98.890 Other specified postprocedural states; Z88.5 Allergy status to narcotic agent; Z88.2 Allergy status to sulfonamides; Z88.8 Allergy status to other drugs, medicaments and biological substances; Z88.6 Allergy status to analgesic agent; Z91.041 Radiographic dye allergy status; Z91.040 Latex allergy status
CPT/HCPCS: 96372; 99283; J3010

== ENCOUNTER → 2017-12-12 | Outpatient (CLI) | payer OTHER ==
--- NOTE | 2017-12-12 12:31 | RAD ---
Pelvic and transvaginal ultrasound History: Bilateral adnexal pain Comparison: 04/15/2017 Findings: Multiple transabdominal sonographic images of the pelvis are submitted. There has been hysterectomy. Reportedly there has been right oophorectomy. No free fluid is demonstrated. Left ovary is not seen. Transvaginal ultrasound: Multiple transvaginal sonographic images of the pelvis are submitted. There has been hysterectomy, no discrete abnormality of the demonstrated of the vaginal cuff. No free fluid is demonstrated. There has been right oophorectomy as per history. Left ovary measured 3.6 x 2.2 x 2.7 cm. There is normal low resistance vascularity of the left ovary. There is a more solid-appearing nodule of the left ovary about 2.1 x 1.8 x 1.7 cm, some peripheral vascularity color Doppler imaging although centrally not associated with significant vascularity. Impression: 1. There is focus of abnormal echogenicity of the left ovary with vascularity at the periphery. Considerations would include hemorrhagic or very complex cyst although more solid mass not excluded by this exam. 2. There has been hysterectomy and right oophorectomy. Electronically signed by: Kel Castillo MD (12/12/2017 12:28 PM) [facility]
== END | disposition home or self-care (01) ==
LOC: US 09:59
PROVIDERS: ATTEND Obstetrics & Gynecology
DX: R10.2 Pelvic and perineal pain (principal); J45.909 Unspecified asthma, uncomplicated; M19.90 Unspecified osteoarthritis, unspecified site; Z98.51 Tubal ligation status; Z90.710 Acquired absence of both cervix and uterus; Z90.721 Acquired absence of ovaries, unilateral; Z79.899 Other long term (current) drug therapy
CPT/HCPCS: 76830; 76856

== ENCOUNTER 2017-12-29 10:49 | Emergency (ER) | payer OTHER ==
[~2017-12-29] VITALS: Ht 154.9 cm; Wt 83.0 kg
[2017-12-29] MEDS ORDERED: HYDROcodone/APAP 5/325MG 1 TAB TABLET PO ONE (12:30)
[2017-12-29 12:45] VITALS: BP 105/57
--- NOTE | 2017-12-29 13:03 | RAD ---
History: Pain for 3 days since stepping in hole. Bruising on top of the 2nd and 3rd metatarsals. Comparison: Right ankle radiographs April 10, 2017. Findings: AP, lateral, and oblique views of the right foot. No acute fracture or dislocation is identified. No focal soft tissue swelling is seen. AP, lateral, and oblique views of the right foot. No acute fracture or dislocation is identified. Mild forefoot soft tissue swelling is seen. Impression: 1. No acute osseous traumatic injury identified in the right ankle or right foot. 2. Forefoot soft tissue swelling. Electronically signed by: Greg More MD (12/29/2017 1:00 PM) [place] [id number]
[2017-12-29] MEDS ORDERED: METH4TAB2 PO (14:30)
--- NOTE | 2017-12-29 14:30 | PHYS DOC ---
Past Medical History Past Medical History: Other Additional Past Medical Histor: ADRENAL FATIGUE Past Surgical History: Hysterectomy Additional Past Surgical Histo: left and right hand surgery, back surgery,NECK SURGERY Alcohol Use: None Drug Use: None Adult General Chief Complaint Chief Complaint: ANKLE PROBLEM HPI HPI Patient is a 47 year old female who presents with moderate right lateral ankle and foot pain that began yesterday after she stepped into a hole. Patient states the pain is worse on weight bearing. Describes the pain as sharp and constant. Review of Systems Review of Systems Constitutional: Denies fever or chills [] Musculoskeletal reports right ankle pain and right foot pain Integument: Denies rash or skin lesions [] Neurologic: Denies headache, focal weakness or sensory changes [] All other systems were reviewed and found to be within normal limits, except as documented in this note. Current Medications Current Medications Current Medications Medications (Trade) Dose Ordered Sig/Cordelia Start Time Stop Time Status Last Admin Dose Admin Acetaminophen/ Hydrocodone Bitart (Lortab 5/325) 1 tab 1X ONCE 12/29/17 12:30 12/29/17 12:31 DC 12/29/17 13:01 1 TAB Allergies Allergies Allergies Coded Allergies Type Severity Reaction Last Updated Verified Iodinated Contrast- Oral and IV Dye Allergy Intermediate 10/15/13 Yes Sulfa (Sulfonamide Antibiotics) Allergy Intermediate Unknown 10/15/13 Yes aspirin Allergy Intermediate 07/20/16 Yes codeine Allergy Intermediate 07/20/16 Yes guaifenesin Allergy Intermediate 07/20/16 Yes ibuprofen Allergy Intermediate 07/20/16 Yes morphine Allergy Intermediate Patient is can take PO Morphine 07/20/16 Yes pamabrom Allergy Intermediate 07/20/16 Yes Latex, Natural Rubber Allergy Mild ITCHY, RASH 08/02/15 Yes Physical Exam Physical Exam Constitutional: Well developed, well nourished, no acute distress, non-toxic appearance. [] Skin: Warm, dry, no erythema, no rash. [] Back: No tenderness, no CVA tenderness. [] Extremities: Right ankle and right foot with no obvious deformity. Bruising noted on the right lateral ankle with tenderness to the right lateral ankle as well as the top of the foot. Full passive range of motion to the right ankle and foot. +2 right pedal pulse. Cap refill less than 2 seconds the right toes. Neurologic: Alert and oriented X 3, normal motor function, normal sensory function, no focal deficits noted. [] Psychologic: Affect normal, judgement normal, mood normal. [] Current Patient Data Vital Signs Vital Signs Date Time Temp Pulse Resp B/P (MAP) Pulse Ox O2 Delivery O2 Flow Rate FiO2 12/29/17 13:01 20 98 Room Air 12/29/17 12:45 98.1 80 105/57 (73) 98.1 EKG EKG [] Radiology/Procedures Radiology/Procedures [] Course & Med Decision Making Course & Med Decision Making Pertinent Labs and Imaging studies reviewed. (See chart for details) This is a 47-year-old female patient presenting to the ED today with right ankle and right foot pain after stepping in a hole yesterday. Right ankle and right foot x-rays interpreted by radiologist are negative for any acute findings. Air cast provided to the right ankle by the ED RN, neurovascular exam is intact, ice elevation encouraged. Follow-up with orthopedic doctor next week as scheduled. Discharged with Medrol Dosepak. She is allergic to codeine as well as aspirin. Staff Physician Addendum: I was working in the ER during the course of this patient's visit. I was available for consultation as needed, but I was not directly involved in the care of this patient. Dragon Disclaimer Dragon Disclaimer This electronic medical record was generated, in whole or in part, using a voice recognition dictation system. Departure Departure Impression: Primary Impression: Right ankle sprain Additional Impression: Right foot sprain Disposition: HOME, SELF-CARE Condition: STABLE Referrals: EDY SANABRIA MD (PCP) JENNIFER GENTILE MD follow up in one week Patient Instructions: Joint Sprain Additional Instructions: You were evaluated in the emergency room for right ankle right foot sprain. Ice elevate the extremities. Follow-up with orthopedic doctor in one week. Scripts Methylprednisolone (MEDROL) 4 Mg Tab.ds.pk 1 PKG PO UD, #1 PKG Prov: BINH GARCÍA APRN 12/29/17 Problem Qualifiers Primary Impression: Right ankle sprain Encounter type: initial encounter Involved ligament of ankle: unspecified ligament Qualified Codes: S93.401A - Sprain of unspecified ligament of right ankle, initial encounter Additional Impression: Right foot sprain Encounter type: initial encounter Qualified Codes: S93.601A - Unspecified sprain of right foot, initial encounter BINH GARCÍA APRN Dec 29, 2017 14:30 FRIEDA SHANNON MD Dec 29, 2017 17:35
== END 2017-12-29 14:44 | disposition home or self-care (01) ==
LOC: ER 10:49
DX: S93.401A Sprain of unspecified ligament of right ankle, initial encounter (principal); S93.601A Unspecified sprain of right foot, initial encounter; Z88.5 Allergy status to narcotic agent; Z88.2 Allergy status to sulfonamides; Z88.8 Allergy status to other drugs, medicaments and biological substances; Z88.6 Allergy status to analgesic agent; Z91.041 Radiographic dye allergy status; Z91.040 Latex allergy status; W17.2XXA Fall into hole, initial encounter; Y93.89 Activity, other specified; Y92.89 Other specified places as the place of occurrence of the external cause; Y99.8 Other external cause status
CPT/HCPCS: 29515; 73610; 73630; 99284; L4350

== ENCOUNTER 2018-03-10 15:52 | Emergency (ER) | payer OTHER ==
[~2018-03-10] VITALS: Ht 154.9 cm; Wt 83.0 kg
[~2018-03-10 15:52] MED LIST changes: +ALBU2.5V8 INH; -GABA-586 PO; +GABA300C18 PO; -HYDR-2758 PO; +HYDR-2761 PO; +HYDR-3164 PO; -HYDR-971 PO; +METH4TAB2 PO; -PROAIR HFA8.5 GM INH
[2018-03-10 16:46] VITALS: BP 156/84
--- NOTE | 2018-03-10 16:53 | PHYS DOC ---
Past Medical History Past Medical History: Other Additional Past Medical Histor: ADRENAL FATIGUE Past Surgical History: Hysterectomy Additional Past Surgical Histo: left and right hand surgery, back surgery,NECK SURGERY Alcohol Use: None Drug Use: None Adult General Chief Complaint Chief Complaint: HAND PROBLEM HPI HPI 47-year-old female presents to ER with complaints of right middle finger injury which occurred last night while she was moving a plant. Patient states she has had previous tendon surgery on her right hand and had concerned she had poor her tendon again. Patient denies crushing injury. Patient denies swelling, skin discoloration, or open wounds. She took hydrocodone at 12 AM with slight improvement in pain. Patient states she applied her splint she had on at home but with ongoing pain came to ER for x-ray. On arrival patient is extremely anxious and hyperventilating. Patient initially reluctant to move fingers on right hand. Redirection on breathing technique and patient educated on her anxiety. With reassurance and education patient was able to slow her breathing and was able to perform range of motion and right hand. Flexor tendon intact against resistance all fingers rt hand. Review of Systems Review of Systems Constitutional: Denies fever or chills [] Musculoskeletal: Reports rt middle finger pain into rt hand Integument: Denies abrasions/ecchymosis Neurologic: Denies focal weakness or sensory changes [] All other systems were reviewed and found to be within normal limits, except as documented in this note. Allergies Allergies Allergies Coded Allergies Type Severity Reaction Last Updated Verified Iodinated Contrast- Oral and IV Dye Allergy Intermediate 10/15/13 Yes Sulfa (Sulfonamide Antibiotics) Allergy Intermediate Unknown 10/15/13 Yes aspirin Allergy Intermediate 07/20/16 Yes codeine Allergy Intermediate 07/20/16 Yes guaifenesin Allergy Intermediate 07/20/16 Yes ibuprofen Allergy Intermediate 07/20/16 Yes morphine Allergy Intermediate Patient is can take PO Morphine 07/20/16 Yes pamabrom Allergy Intermediate 07/20/16 Yes Latex, Natural Rubber Allergy Mild ITCHY, RASH 08/02/15 Yes Physical Exam Physical Exam Constitutional: Well developed, well nourished, no acute distress, non-toxic appearance. Extremely anxious on initial exam- rapid breathing and quite tense. Redirection on breathing and her anxiety and pt was able to relax which improved her rt hand pain she reported as she had her fingers hyperextended on rt hand. Neck: Normal range of motion, supple Cardiovascular:Heart rate regular Lungs & Thorax: After discussion on rapid breathing/anxiety- resp. equal/ nonlabored Skin: Warm, dry, no erythema/ecchymosis Extremities: No cyanosis, no clubbing, no edema. Tender to palp. proximal joint on rt middle finger into distal dorsal surface of rt hand- no swelling/ discoloration/wound at site. Initially patient was reluctant to perform range of motion and right hand however with education and reassurance patient was able to flex and bend all fingers on right hand- did have slight decrease of range of motion in right middle finger with reports of pain during movements. Flexor tendon intact against resistance all fingers rt hand. Neurologic: Alert and oriented X 3, normal motor function, normal sensory function, no focal deficits noted. [] Psychologic: Affect normal, judgement normal, anxious on arrival which improved with discussion Current Patient Data Vital Signs Vital Signs Date Time Temp Pulse Resp B/P (MAP) Pulse Ox O2 Delivery O2 Flow Rate FiO2 03/10/18 16:46 98.8 91 18 156/84 (108) 97 Room Air 98.8 EKG EKG [] Radiology/Procedures Radiology/Procedures PROCEDURE: HAND RIGHT 3V Examination: HAND RIGHT 3V History: rt middle finger pain into rt hand- injury last night Comparison/Correlation: None Findings: Total 3 images the right hand were obtained. Lateral view of the hand was provided by overlapping anatomic structures obscure evaluation of the third digit partially. Osteoarthritic findings involving distal interphalangeal joints noted. No acute fracture or bony destruction. Soft tissues are grossly unremarkable. No acute fracture or bony destructive finding. 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 Right third digit is unremarkable. If symptoms are persistent, dedicated lateral view of the right third digit recommended. Electronically signed by: Hugo Ivory MD (03/10/2018 5:31 PM) [facility] DICTATED and SIGNED BY: NORA WILSON MD DATE: 03/10/18 8183 Course & Med Decision Making Course & Med Decision Making Pertinent Imaging studies reviewed. (See chart for details) 180: Discussed x-ray results with patient with no acute findings. Discussed plans for aluminum splint to right middle finger patient to follow-up with orthopedics for further care and reevaluation. Patient has pain medication at home. Patient remains neuro and vascular intact in right upper extremity. Patient reports she has had increased range of motion following initial exam and education on her anxiety. At time of discharge discussion pt was not anxious and in no distress. Will provide ortho referral info with discharge paperwork. Discharge instructions were discussed and education on s&s to return to ER for. Staff Physician Addendum: I was working in the ER during the course of this patient's visit. I was available for consultation as needed, but I was not directly involved in the care of this patient. Dragon Disclaimer Dragon Disclaimer This electronic medical record was generated, in whole or in part, using a voice recognition dictation system. Departure Departure Impression: Primary Impression: Injury of finger of right hand Disposition: HOME, SELF-CARE Condition: STABLE Referrals: EDY SANABRIA MD (PCP) TRAMAINE DOSS MD Patient Instructions: Hand Injuries Additional Instructions: Wear splint on right middle finger for support- take off splint multiple times daily and perform range of motion of finger. If symptoms persist or with concerns follow-up with orthopedic doctor for further care and reevaluation. Continue home pain medication as prescribed. Ice pack to affected area every 3- 4 hours for 20-30 minutes at a time. PORTIA WILSON APRN Mar 10, 2018 16:53 FRIEDA SHANNON MD Mar 12, 2018 22:30
--- NOTE | 2018-03-10 17:35 | RAD ---
Examination: HAND RIGHT 3V History: rt middle finger pain into rt hand- injury last night Comparison/Correlation: None Findings: Total 3 images the right hand were obtained. Lateral view of the hand was provided by overlapping anatomic structures obscure evaluation of the third digit partially. Osteoarthritic findings involving distal interphalangeal joints noted. No acute fracture or bony destruction. Soft tissues are grossly unremarkable. No acute fracture or bony destructive finding. 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 Right third digit is unremarkable. If symptoms are persistent, dedicated lateral view of the right third digit recommended. Electronically signed by: Hugo Ivory MD (03/10/2018 5:31 PM) [facility]
[2018-09-26] MEDS ORDERED: ELAG200T PO (01:23)
[2018-09-26] MEDS ORDERED: CALC-98 PO (01:23)
[2018-09-26] MEDS ORDERED: HYDR5TAB3 PO (01:23)
[2018-09-26] MEDS ORDERED: HYDR-2759 PO (01:23)
[2018-09-26] MEDS ORDERED: OMEP20TA63 PO (01:23)
[2018-09-26] MEDS ORDERED: MECL12.52 PO (08:49)
[2018-09-26] MEDS ORDERED: ONDA4TAB7 PO (08:49)
== END 2018-03-10 18:28 | disposition home or self-care (01) ==
LOC: ER 15:52
DX: S69.91XA Unspecified injury of right wrist, hand and finger(s), initial encounter (principal); F41.9 Anxiety disorder, unspecified; R06.4 Hyperventilation; Z91.041 Radiographic dye allergy status; Z88.2 Allergy status to sulfonamides; Z88.6 Allergy status to analgesic agent; Z88.5 Allergy status to narcotic agent; Z91.040 Latex allergy status; Z88.8 Allergy status to other drugs, medicaments and biological substances; Z98.890 Other specified postprocedural states; X50.9XXA Other and unspecified overexertion or strenuous movements or postures, initial encounter; Y93.89 Activity, other specified; Y92.89 Other specified places as the place of occurrence of the external cause; Y99.8 Other external cause status
CPT/HCPCS: 29130; 73130; 99283; 99284

== ENCOUNTER 2018-06-24 03:02 | Inpatient (IN) | payer OTHER ==
[~2018-06-24] VITALS: Ht 162.6 cm; Wt 94.0 kg
[2018-06-24] MEDS ORDERED: ONDA4TAB7 PO (03:30)
--- NOTE | 2018-06-24 03:41 | PHYS DOC ---
Past Medical History Past Medical History: Other Additional Past Medical Histor: ADRENAL FATIGUE (FRIEDA SHANNON MD) Past Surgical History: Hysterectomy Additional Past Surgical Histo: left and right hand surgery, back surgery,NECK SURGERY (FRIEDA SHANNON MD) Alcohol Use: None Drug Use: None (FRIEDA SHANNON MD) Adult General Chief Complaint Chief Complaint: NAUSEA/VOMITING/DIARRHA HPI HPI Patient is a 48 year old female was brought in by ambulance with nausea and vomiting and diarrhea greater than 10 episodes yellow she could not make to the bathroom it came on quite suddenly she had all quadrant last night cramping diffuse pain comes on much more severe just before vomiting or having diarrhea no fever no exacerbating factors otherwise (FRIEDA SHANNON MD) Review of Systems Review of Systems Constitutional: Denies fever or chills [] Eyes: Denies change in visual acuity, redness, or eye pain [] HENT: Denies nasal congestion or sore throat [] Respiratory: Denies cough or shortness of breath [] Musculoskeletal: Denies back pain or joint pain [] Integument: Denies rash or skin lesions [] All other systems were reviewed and found to be within normal limits, except as documented in this note. (FRIEDA SHANNON MD) Current Medications Current Medications Current Medications Medications (Trade) Dose Ordered Sig/Cordelia Start Time Stop Time Status Last Admin Dose Admin Acetaminophen (Tylenol) 1,000 mg 1X ONCE 06/24/18 05:45 06/24/18 05:46 DC 06/24/18 06:16 1,000 MG Fentanyl Citrate (Fentanyl 2ml Vial) 50 mcg 1X ONCE 06/24/18 03:45 06/24/18 03:46 DC 06/24/18 03:52 50 MCG Lorazepam (Ativan) 1 mg 1X ONCE 06/24/18 04:30 06/24/18 04:31 DC 06/24/18 04:29 1 MG Methylprednisolone Sodium Succinate (SOLU-Medrol 125MG VIAL) 125 mg 1X ONCE 06/24/18 06:15 06/24/18 06:16 DC 06/24/18 06:21 125 MG Ondansetron HCl (Zofran) 4 mg 1X ONCE 06/24/18 03:45 06/24/18 03:46 DC 06/24/18 03:40 4 MG Sodium Chloride 1,000 ml @ 1,000 mls/hr 1X ONCE 06/24/18 05:45 06/24/18 06:44 DC 06/24/18 06:21 1,000 MLS/HR (ALYSON RAY MD) Allergies Allergies Allergies Coded Allergies Type Severity Reaction Last Updated Verified Iodinated Contrast- Oral and IV Dye Allergy Intermediate 10/15/13 Yes Sulfa (Sulfonamide Antibiotics) Allergy Intermediate Unknown 10/15/13 Yes codeine Allergy Intermediate 07/20/16 Yes guaifenesin Allergy Intermediate 07/20/16 Yes morphine Allergy Intermediate Patient is can take PO Morphine 07/20/16 Yes pamabrom Allergy Intermediate 07/20/16 Yes Latex, Natural Rubber Allergy Mild ITCHY, RASH 08/02/15 Yes (ALYSON RAY MD) Physical Exam Physical Exam Constitutional: Well developed, well nourished, no acute distress, non-toxic appearance. [] HENT: Normocephalic, atraumatic, bilateral external ears normal, oropharynx dry, no oral exudates, nose normal. [] Eyes: PERRLA, EOMI, conjunctiva normal, no discharge. [] Neck: Normal range of motion, no tenderness, supple, no stridor. [] Pulmonary: Normal respiratory effort no increased work of breathing no obvious chest wall trauma Abdomen: Bowel sounds normal, soft, mild nonspecific tenderness, no masses, no pulsatile masses. [] Actively vomiting Had diarrhea in the bed Skin: Warm, dry, no erythema, no rash. [] Back: No tenderness, no CVA tenderness. [] Extremities: No tenderness, no cyanosis, no clubbing, ROM intact, no edema. [] Neurologic: Alert and oriented X 3, normal motor function, normal sensory function, no focal deficits noted. [] Psychologic: Affect normal, judgement normal, mood normal. [] (FRIEDA SHANNON MD) Current Patient Data Vital Signs Vital Signs Date Time Temp Pulse Resp B/P (MAP) Pulse Ox O2 Delivery O2 Flow Rate FiO2 06/24/18 07:00 103.3 103.3 06/24/18 06:50 120 30 126/71 (89) 97 Room Air (ALYSON RAY MD) Lab Values Laboratory Tests Test 06/24/18 03:40 White Blood Count 15.1 x10^3/uL (4.0-11.0) H Red Blood Count 5.14 x10^6/uL (3.50-5.40) Hemoglobin 15.0 g/dL (12.0-15.5) Hematocrit 46.0 % (36.0-47.0) Mean Corpuscular Volume 90 fL (79-100) Mean Corpuscular Hemoglobin 29 pg (25-35) Mean Corpuscular Hemoglobin Concent 33 g/dL (31-37) Red Cell Distribution Width 14.3 % (11.5-14.5) Platelet Count 290 x10^3/uL (140-400) Neutrophils (%) (Auto) 88 % (31-73) H Lymphocytes (%) (Auto) 7 % (24-48) L Monocytes (%) (Auto) 4 % (0-9) Eosinophils (%) (Auto) 1 % (0-3) Basophils (%) (Auto) 0 % (0-3) Neutrophils # (Auto) 13.4 x10^3uL (1.8-7.7) H Lymphocytes # (Auto) 1.1 x10^3/uL (1.0-4.8) Monocytes # (Auto) 0.6 x10^3/uL (0.0-1.1) Eosinophils # (Auto) 0.1 x10^3/uL (0.0-0.7) Basophils # (Auto) 0.0 x10^3/uL (0.0-0.2) Segmented Neutrophils % 84 % (35-66) H Band Neutrophils % 5 % (0-9) Lymphocytes % 8 % (24-48) L Monocytes % 2 % (0-10) Eosinophils % 1 % (0-5) Platelet Estimate Adequate (ADEQUATE) Sodium Level 139 mmol/L (136-145) Potassium Level 4.0 mmol/L (3.5-5.1) Chloride Level 103 mmol/L (98-107) Carbon Dioxide Level 25 mmol/L (21-32) Anion Gap 11 (6-14) Blood Urea Nitrogen 15 mg/dL (7-20) Creatinine 0.9 mg/dL (0.6-1.0) Estimated GFR (Cockcroft-Gault) 66.5 BUN/Creatinine Ratio 17 (6-20) Glucose Level 123 mg/dL (70-99) H Calcium Level 8.8 mg/dL (8.5-10.1) Total Bilirubin 0.3 mg/dL (0.2-1.0) Aspartate Amino Transferase (AST) 17 U/L (15-37) Alanine Aminotransferase (ALT) 17 U/L (14-59) Alkaline Phosphatase 60 U/L (46-116) Total Protein 8.1 g/dL (6.4-8.2) Albumin 3.7 g/dL (3.4-5.0) Albumin/Globulin Ratio 0.8 (1.0-1.7) L Laboratory Tests 06/24/18 03:40 Laboratory Tests 06/24/18 03:40 (ALYSON RAY MD) Lab Values Laboratory Tests Test 06/24/18 03:40 White Blood Count 15.1 x10^3/uL (4.0-11.0) H Red Blood Count 5.14 x10^6/uL (3.50-5.40) Hemoglobin 15.0 g/dL (12.0-15.5) Hematocrit 46.0 % (36.0-47.0) Mean Corpuscular Volume 90 fL (79-100) Mean Corpuscular Hemoglobin 29 pg (25-35) Mean Corpuscular Hemoglobin Concent 33 g/dL (31-37) Red Cell Distribution Width 14.3 % (11.5-14.5) Platelet Count 290 x10^3/uL (140-400) Neutrophils (%) (Auto) 88 % (31-73) H Lymphocytes (%) (Auto) 7 % (24-48) L Monocytes (%) (Auto) 4 % (0-9) Eosinophils (%) (Auto) 1 % (0-3) Basophils (%) (Auto) 0 % (0-3) Neutrophils # (Auto) 13.4 x10^3uL (1.8-7.7) H Lymphocytes # (Auto) 1.1 x10^3/uL (1.0-4.8) Monocytes # (Auto) 0.6 x10^3/uL (0.0-1.1) Eosinophils # (Auto) 0.1 x10^3/uL (0.0-0.7) Basophils # (Auto) 0.0 x10^3/uL (0.0-0.2) Segmented Neutrophils % 84 % (35-66) H Band Neutrophils % 5 % (0-9) Lymphocytes % 8 % (24-48) L Monocytes % 2 % (0-10) Eosinophils % 1 % (0-5) Platelet Estimate Adequate (ADEQUATE) Sodium Level 139 mmol/L (136-145) Potassium Level 4.0 mmol/L (3.5-5.1) Chloride Level 103 mmol/L (98-107) Carbon Dioxide Level 25 mmol/L (21-32) Anion Gap 11 (6-14) Blood Urea Nitrogen 15 mg/dL (7-20) Creatinine 0.9 mg/dL (0.6-1.0) Estimated GFR (Cockcroft-Gault) 66.5 BUN/Creatinine Ratio 17 (6-20) Glucose Level 123 mg/dL (70-99) H Calcium Level 8.8 mg/dL (8.5-10.1) Total Bilirubin 0.3 mg/dL (0.2-1.0) Aspartate Amino Transferase (AST) 17 U/L (15-37) Alanine Aminotransferase (ALT) 17 U/L (14-59) Alkaline Phosphatase 60 U/L (46-116) Total Protein 8.1 g/dL (6.4-8.2) Albumin 3.7 g/dL (3.4-5.0) Albumin/Globulin Ratio 0.8 (1.0-1.7) L Laboratory Tests 06/24/18 03:40 Laboratory Tests 06/24/18 03:40 (FRIEDA SHANNON MD) EKG EKG [] (FRIEDA SHANNON MD) Radiology/Procedures Radiology/Procedures [] (FRIEDA SHANNON MD) Radiology/Procedures [facility] [address] [place], [place] [id number] IMAGING REPORT Signed PATIENT: MARIBEL IRAHETA ACCOUNT: [id number] : 1970 LOCATION: ER AGE: 48 SEX: F EXAM STATUS: REG ER ORD. PHYSICIAN: FRIEDA SHANNON MD REASON: abdo pain vomiting/diarrhea. leukocytosis. r/o diverticulitis. PROCEDURE: CT ABDOMEN PELVIS WO CONTRAST INDICATION: abdo pain vomiting/diarrhea. leukocytosis. r/o diverticulitis. COMPARISON: April 2017 TECHNIQUE: Axial CT images obtained through the abdomen and pelvis without contrast. Limited assessment of solid organ structures and vasculature secondary to lack of intravenous contrast.. One or more of the following individualized dose reduction techniques were utilized for this examination: 1. Automated exposure control; 2. Adjustment of the mA and/or kV according to patient size; 3. Use of iterative reconstruction technique. FINDINGS: Motion somewhat limits exam. Suspected groundglass opacity dependently at right greater than left lung base. Abdominal aorta is not aneurysmal. Postcholecystectomy changes. No peripancreatic fluid collection. Motion artifact limits evaluation of the upper abdomen. Some haziness of the adjacent fat however there is motion through this region. Spleen not grossly enlarged. No left-sided hydronephrosis. Urinary bladder is partially distended at time of exam. No right-sided hydronephrosis. No periappendiceal inflammation. Mildly prominent loops of small bowel in the left-sided the abdomen measuring up to about 35 mm. Degenerative changes the spine with disc protrusions and osteophyte formation as well as facet hypertrophy contributing to central canal and neural foraminal stenosis. IMPRESSION: 1. Motion limits this examination. At the pancreas there is questionable haziness adjacent to it. This is most likely secondary to motion artifact but would correlate with symptoms in the region to ensure that there is not a pathologic cause such as mild edema from pancreatitis. 2. No definite evidence of colitis or appendicitis. 3. Within the left-side of abdomen there is a few mildly prominent loops of small bowel identified measuring up to about 35 mm with prominence the wall. Could be secondary to phase of peristalsis however alternative causes such as enteritis is within the differential. There is typically more severe bowel dilation than this with a bowel obstruction although a very early partial small bowel obstruction would be difficult to exclude. 4. No hydronephrosis. Mild groundglass opacities lung bases. Most likely cause would be atelectasis. Electronically signed by: Kuldeep Kate MD (06/24/2018 6:39 AM) [facility] DICTATED and SIGNED BY: KULDEEP KATE MD DATE: 06/24/18 0639 (ALYSON ARY MD) Course & Med Decision Making Course & Med Decision Making Pertinent Labs and Imaging studies reviewed. (See chart for details) []Suspect viral gastroenteritis profuse episodes of both check labs treat symptoms reassess 540 am still tachy and still having pain. ct a/p , hcg, u/a and repeat iv fluids and tylenol pending. s/o amol (FRIEDA SHANNON MD) Course & Med Decision Making Patient care transferred to [place] at 0600. Patient had history of abdominal insufficiency with frequent episodes of nausea and vomiting and diarrhea and generalized weakness and shaking. Patient had temperature of 99 to arrival to ER and treated with Tylenol. Patient had temperature of 103.2 when I examined the patient. Patient had tachycardia at rate of 126 and blood pressure 120s that later on dropped to 91/ 53. Patient had 3 L of normal saline earlier. Solu- Medrol and Solu-Cortef was ordered. Lactic acid and blood culture was obtained and lactic acid was 2.2 after treatment with 3 L of IV fluid. Patient treated with IV fluid, Zosyn, fentanyl and Toradol with improvement of her condition. Plan to admit patient with diagnosis of sepsis. Patient requiring admission for further evaluation and treatment. Discussed with Dr. Taveras who is in agreement with admission. Discussed findings and plan with patient and family, who acknowledge understanding and agreement. (ALYSON RAY MD) Dragon Disclaimer Dragon Disclaimer This electronic medical record was generated, in whole or in part, using a voice recognition dictation system. (FRIEDA SHANNON MD) Departure Departure Impression: Primary Impression: Sepsis Additional Impressions: Acute gastroenteritis Adrenal insufficiency Disposition: ADMITTED INPATIENT (at 0 727) Admitting Physician: Hortencia Taveras (since his admission at 0726) (ALYSON RAY MD) Condition: GUARDED Patient Instructions: Diarrhea, [id number] Ondansetron Hcl (ZOFRAN) 4 Mg Tablet 4 MG PO PRN TID PRN for NAUSEA/VOMITING, #15 nausea/vomiting Prov: FRIEDA SHANNON MD 06/24/18 Critical Care Time Critical care time was 60 minutes exclusive of procedures. (ALYSON RAY MD) Problem Qualifiers FRIEDA SHANNON MD Jun 24, 2018 03:41 ALYSON RAY MD Jun 24, 2018 09:51
[2018-06-24] MEDS ORDERED: ONDANSETRON PF 4 MG/2 ML VIAL. IV ONE (03:45)
[2018-06-24] MEDS ORDERED: fentaNYL PF VIAL 100 MCG/2 ML VIAL IV ONE ×2 (03:45→07:30)
[2018-06-24] MEDS ORDERED: IV NORMAL SALINE 1000ML BAG 1,000 ML IV ONE ×3 (03:45→05:45)
[2018-06-24 03:50] LABS: BASO % 0 % (0-3); EOS # 0.1 x10^3/uL (0.0-0.7); EOS % 1 % (0-3); LYMPH # 1.1 x10^3/uL (1.0-4.8); LYMPH % 7 % (24-48); MEAN CORPUSCULAR HEMOGLOBIN 29 pg (25-35); MEAN CORPUSCULAR HGB CONC 33 g/dL (31-37); MEAN CORPUSCULAR VOLUME 90 fL (79-100); MONO # 0.6 x10^3/uL (0.0-1.1); MONO % 4 % (0-9); NEUT # 13.4 x10^3uL (1.8-7.7); NEUT % 88 % (31-73); PLATELET COUNT 290 x10^3/uL (140-400); RED BLOOD COUNT 5.14 x10^6/uL (3.50-5.40); RED CELL DISTRIBUTION WIDTH 14.3 % (11.5-14.5); WHITE BLOOD COUNT 15.1 x10^3/uL (4.0-11.0)
[2018-06-24 04:03] LABS: CALCIUM 8.8 mg/dL (8.5-10.1); CREATININE 0.9 mg/dL (0.6-1.0); GFR 66.5
[2018-06-24 04:08] LABS: ALBUMIN 3.7 g/dL (3.4-5.0); ALBUMIN/GLOBULIN RATIO 0.8 (1.0-1.7); TOTAL BILIRUBIN 0.3 mg/dL (0.2-1.0); TOTAL PROTEIN 8.1 g/dL (6.4-8.2)
[2018-06-24 04:11] LABS: % BANDS 5 % (0-9); % EOS 1 % (0-5); % LYMPHS 8 % (24-48); % MONOS 2 % (0-10); % SEGS 84 % (35-66); PLT ESTIMATE ADEQUATE (ADEQUATE)
[2018-06-24] MEDS ORDERED: ACETAMINOPHEN 500 MG TABLET PO ONE (05:45)
[2018-06-24] MEDS ORDERED: methylPREDNISolone SOD SUCC PF 125 MG/2 ML VIAL. IV ONE (06:15)
--- NOTE | 2018-06-24 06:42 | RAD ---
INDICATION: abdo pain vomiting/diarrhea. leukocytosis. r/o diverticulitis. COMPARISON: April 2017 TECHNIQUE: Axial CT images obtained through the abdomen and pelvis without contrast. Limited assessment of solid organ structures and vasculature secondary to lack of intravenous contrast.. One or more of the following individualized dose reduction techniques were utilized for this examination: 1. Automated exposure control; 2. Adjustment of the mA and/or kV according to patient size; 3. Use of iterative reconstruction technique. FINDINGS: Motion somewhat limits exam. Suspected groundglass opacity dependently at right greater than left lung base. Abdominal aorta is not aneurysmal. Postcholecystectomy changes. No peripancreatic fluid collection. Motion artifact limits evaluation of the upper abdomen. Some haziness of the adjacent fat however there is motion through this region. Spleen not grossly enlarged. No left-sided hydronephrosis. Urinary bladder is partially distended at time of exam. No right-sided hydronephrosis. No periappendiceal inflammation. Mildly prominent loops of small bowel in the left-sided the abdomen measuring up to about 35 mm. Degenerative changes the spine with disc protrusions and osteophyte formation as well as facet hypertrophy contributing to central canal and neural foraminal stenosis. IMPRESSION: 1. Motion limits this examination. At the pancreas there is questionable haziness adjacent to it. This is most likely secondary to motion artifact but would correlate with symptoms in the region to ensure that there is not a pathologic cause such as mild edema from pancreatitis. 2. No definite evidence of colitis or appendicitis. 3. Within the left-side of abdomen there is a few mildly prominent loops of small bowel identified measuring up to about 35 mm with prominence the wall. Could be secondary to phase of peristalsis however alternative causes such as enteritis is within the differential. There is typically more severe bowel dilation than this with a bowel obstruction although a very early partial small bowel obstruction would be difficult to exclude. 4. No hydronephrosis. Mild groundglass opacities lung bases. Most likely cause would be atelectasis. Electronically signed by: Jake Meza MD (06/24/2018 6:39 AM) [facility]
[2018-06-24] MEDS ORDERED: PIPERACILLIN/TAZOBACTAM 3.375 GM in IV NORMAL SALINE 50ML 50 ML IV ONE (07:15)
[2018-06-24] MEDS ORDERED: KETOROLAC 30 MG/ML VIAL. IV ONE (07:30)
[2018-06-24] MEDS ORDERED: HYDROCORTISONE SOD SUCC/PF 100 MG/2 ML VIAL. IV ONE (07:45)
[2018-06-24 07:57] LABS: INFLUENZA A PATIENT NEGATIVE (NEGATIVE); INFLUENZA B PATIENT NEGATIVE (NEGATIVE)
[2018-06-24 08:06] LABS: BILIRUBIN,URINE NEGATIVE (NEG); CLARITY,URINE CLEAR; COLOR,URINE YELLOW; NITRITE,URINE NEGATIVE (NEG); PROTEIN,URINE NEGATIVE (NEG-TRACE); UROBILINOGEN,URINE 0.2 mg/dL (0.2 mg/dL)
[2018-06-24 08:40] LABS: BACTERIA,URINE 0 /HPF (0-FEW); RBC,URINE 0 /HPF (0-2); SQUAMOUS EPITHELIAL CELL,UR MOD /LPF; WBC,URINE 0 /HPF (0-4)
[2018-06-24] MEDS: IV NORMAL SALINE 1000ML BAG 1,000 ML IV SCH ×3 (08:53→22:18)
--- NOTE | 2018-06-24 08:54 | PDOC1 ---
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 She noted the lemonade or alcoholic beverage instead of Sprite seemed like dirty water. She ate some, drank some. After which at home, diarrhea, emesis, abdominal pain. She is inconsolable. Crying. Her was also ill but not to her extent. Labs are remarkable for leukocytosis 15 tachycardic 130s. UA pending. The rest of the labs and CAT scan unimpressive except for findings of the CAT scan it could be seen in enteritis. Patient admitted IV fluid hydrate, control the nausea vomiting, recheck leukocytosis tomorrow. Agreeable to my plan. I have reconciled home meds including more importantly the hydrocortisone which she takes 3 tablets 8 AM and 5 tablets 2 PM, each tablet is 5 mg pills. She also states claims she takes calcium 1200 mg once a day and vitamin D 2000 units since she has been getting medication for treatment of her endometriosis which can cause some osteopenia. Past Medical History Endocrine: Other (adrenal insufficiency) Past Surgical History Past Surgical History: Cholecystectomy, Hysterectomy Family History Family History: No Significant Social History Smoke: No ALCOHOL: social Drugs: None Current Problem List Problem List Problems Medical Problems: (1) Nausea vomiting and diarrhea Status: Acute Current Medications Current Medications Current Medications Ondansetron HCl (Zofran) 4 mg 1X ONCE IV Last administered on 06/24/18at 03:40; Start 06/24/18 at 03:45; Stop 06/24/18 at 03:46; Status DC Sodium Chloride 1,000 ml @ 1,000 mls/hr 1X ONCE IV Last administered on 06/24/18at 03:39; Start 06/24/18 at 03:45; Stop 06/24/18 at 04:44; Status DC Fentanyl Citrate (Fentanyl 2ml Vial) 50 mcg 1X ONCE IV Last administered on 06/24/18at 03:52; Start 06/24/18 at 03:45; Stop 06/24/18 at 03:46; Status DC Sodium Chloride 1,000 ml @ 1,000 mls/hr 1X ONCE IV Last administered on 06/24/18at 03:40; Start 06/24/18 at 03:45; Stop 06/24/18 at 04:44; Status DC Lorazepam (Ativan) 1 mg 1X ONCE IV Last administered on 06/24/18at 04:29; Start 06/24/18 at 04:30; Stop 06/24/18 at 04:31; Status DC Acetaminophen (Tylenol) 1,000 mg 1X ONCE PO Last administered on 06/24/18at 06:16; Start 06/24/18 at 05:45; Stop 06/24/18 at 05:46; Status DC Sodium Chloride 1,000 ml @ 1,000 mls/hr 1X ONCE IV Last administered on 06/24/18at 06:21; Start 06/24/18 at 05:45; Stop 06/24/18 at 06:44; Status DC Methylprednisolone Sodium Succinate (SOLU-Medrol 125MG VIAL) 125 mg 1X ONCE IV Last administered on 06/24/18at 06:21; Start 06/24/18 at 06:15; Stop 06/24/18 at 06:16; Status DC Piperacillin Sod/ Tazobactam Sod 3.375 gm/Sodium Chloride 50 ml @ 100 mls/hr 1X ONCE IV Last administered on 06/24/18at 08:15; Start 06/24/18 at 07:15; Stop 06/24/18 at 07:44; Status DC Ketorolac Tromethamine (Toradol 30mg Vial) 30 mg 1X ONCE IV ; Start 06/24/18 at 07:30; Stop 06/24/18 at 08:25; Status DC Fentanyl Citrate (Fentanyl 2ml Vial) 50 mcg 1X ONCE IV Last administered on 06/24/18at 08:13; Start 06/24/18 at 07:30; Stop 06/24/18 at 07:31; Status DC Sodium Chloride 1,000 ml @ 150 mls/hr Q6H40M IV ; Start 06/24/18 at 07:34; Stop 06/25/18 at 07:33 Hydrocortisone Sodium Succinate (Solu-CORTEF) 100 mg 1X ONCE IV Last administered on 06/24/18at 08:03; Start 06/24/18 at 07:45; Stop 06/24/18 at 07:46; Status DC Active Scripts Active Zofran (Ondansetron Hcl) 4 Mg Tablet 4 Mg PO PRN TID PRN nausea/vomiting Medrol (Methylprednisolone) 4 Mg Tab.ds.pk 1 Pkg PO UD Cipro (Ciprofloxacin Hcl) 250 Mg Tablet 500 Mg PO BID 5 Days Flagyl (Metronidazole) 500 Mg Tablet 500 Mg PO Q12HR 5 Days Hydrocodone-Apap 5-325 (Hydrocodone Bit/Acetaminophen) 1 Each Tablet 1 Tab PO PRN Q6HRS PRN Proair Hfa Inhaler (Albuterol Sulfate) 8.5 Gm Hfa.aer.ad 1 Puff INH PRN Q6HRS PRN [place] 5-325 Tablet (Acetaminophen/Hydrocodone Bitart) 1 Each Tablet 1-2 Tab PO Q4-6HRS Reported Tramadol Hcl 50 Mg Tablet 50 Mg PO Q6H PRN Cyclobenzaprine Hcl 10 Mg Tablet 1 Tab PO PRN PRN Gabapentin (Gabapentin) 300 Mg Capsule 300 Mg PO DAILY PRN 30 Days Potassium Gluconate 99 Mg Tablet 99 Mg PO PRN PRN takes for "adrenaline attack" Fludrocortisone Acetate 0.1 Mg Tablet 0.1 Mg PO PRN patient takes for "adrenaline attack" Allergies Allergies: Coded Allergies: Iodinated Contrast- Oral and IV Dye (Verified Allergy, Intermediate, 10/15/13) Sulfa (Sulfonamide Antibiotics) (Verified Allergy, Intermediate, Unknown, 10/15/13) codeine (Verified Allergy, Intermediate, 07/20/16) guaifenesin (Verified Allergy, Intermediate, 07/20/16) morphine (Verified Allergy, Intermediate, Patient is can take PO Morphine, 07/20/16) pamabrom (Verified Allergy, Intermediate, 07/20/16) Latex, Natural Rubber (Verified Allergy, Mild, ITCHY, RASH, 08/02/15) aspirin (Verified Adverse Reaction, Intermediate, NAUSEA/VOMITING, 06/24/18) ibuprofen (Verified Adverse Reaction, Intermediate, NAUSEA/VOMITING, 06/24/18) ROS Review of System as per history of present illness, the rest of ROS 14 point negative, she is quite emotional Physical Exam General: No acute distress HEENT: Atraumatic, PERRLA, EOMI Lungs: Clear to auscultation, Normal air movement Heart: S1S2, RRR, no thrills, no rubs, no gallops, no murmurs Cardiovascular: S1 Breasts: Normal, Rt breast nml w/o mass, Lt breast nml w/o mass, Nipples normal Abdomen: Soft, Other (hyperactive bowel sounds, no guarding) Rectal Exam: not examined PELVIC: Nml ext genitalia Extremities: No clubbing, No cyanosis, No edema, Normal pulses, No tenderness/swelling Skin: No rashes, No breakdown, No significant lesion Neuro: Normal gait, Normal speech, Strength at 5/5 X4 ext, Normal tone, Sensation intact, Cranial nerves 3-12 NL, Reflexes 2+ Psych/Mental Status: Mental status NL, Mood NL Vitals Vitals Vital Signs Date Time Temp Pulse Resp B/P (MAP) Pulse Ox O2 Delivery O2 Flow Rate FiO2 06/24/18 08:13 25 93 Room Air 06/24/18 06:50 120 126/71 (89) 06/24/18 03:30 99.5 99.5 Labs Labs Laboratory Tests Test 06/24/18 03:40 06/24/18 07:13 06/24/18 07:14 06/24/18 07:58 White Blood Count 15.1 x10^3/uL (4.0-11.0) Red Blood Count 5.14 x10^6/uL (3.50-5.40) Hemoglobin 15.0 g/dL (12.0-15.5) Hematocrit 46.0 % (36.0-47.0) Mean Corpuscular Volume 90 fL (79-100) Mean Corpuscular Hemoglobin 29 pg (25-35) Mean Corpuscular Hemoglobin Concent 33 g/dL (31-37) Red Cell Distribution Width 14.3 % (11.5-14.5) Platelet Count 290 x10^3/uL (140-400) Neutrophils (%) (Auto) 88 % (31-73) Lymphocytes (%) (Auto) 7 % (24-48) Monocytes (%) (Auto) 4 % (0-9) Eosinophils (%) (Auto) 1 % (0-3) Basophils (%) (Auto) 0 % (0-3) Neutrophils # (Auto) 13.4 x10^3uL (1.8-7.7) Lymphocytes # (Auto) 1.1 x10^3/uL (1.0-4.8) Monocytes # (Auto) 0.6 x10^3/uL (0.0-1.1) Eosinophils # (Auto) 0.1 x10^3/uL (0.0-0.7) Basophils # (Auto) 0.0 x10^3/uL (0.0-0.2) Segmented Neutrophils % 84 % (35-66) Band Neutrophils % 5 % (0-9) Lymphocytes % 8 % (24-48) Monocytes % 2 % (0-10) Eosinophils % 1 % (0-5) Platelet Estimate Adequate (ADEQUATE) Sodium Level 139 mmol/L (136-145) Potassium Level 4.0 mmol/L (3.5-5.1) Chloride Level 103 mmol/L (98-107) Carbon Dioxide Level 25 mmol/L (21-32) Anion Gap 11 (6-14) Blood Urea Nitrogen 15 mg/dL (7-20) Creatinine 0.9 mg/dL (0.6-1.0) Estimated GFR (Cockcroft-Gault) 66.5 BUN/Creatinine Ratio 17 (6-20) Glucose Level 123 mg/dL (70-99) Calcium Level 8.8 mg/dL (8.5-10.1) Total Bilirubin 0.3 mg/dL (0.2-1.0) Aspartate Amino Transf (AST/SGOT) 17 U/L (15-37) Alanine Aminotransferase (ALT/SGPT) 17 U/L (14-59) Alkaline Phosphatase 60 U/L (46-116) Total Protein 8.1 g/dL (6.4-8.2) Albumin 3.7 g/dL (3.4-5.0) Albumin/Globulin Ratio 0.8 (1.0-1.7) Lactic Acid Level 2.2 mmol/L (0.4-2.0) Influenza Type A Antigen Negative (NEGATIVE) Influenza Type B Antigen Negative (NEGATIVE) Urine Collection Type U cath Urine Color Yellow Urine Clarity Clear Urine pH 5.0 Urine Specific [place] 1.020 Urine Protein Negative mg/dL (NEG-TRACE) Urine Glucose (UA) Negative mg/dL (NEG) Urine Ketones (Stick) Negative mg/dL (NEG) Urine Blood Negative (NEG) Urine Nitrite Negative (NEG) Urine Bilirubin Negative (NEG) Urine Urobilinogen Dipstick 0.2 mg/dL (0.2 mg/dL) Urine Leukocyte Esterase Negative (NEG) Urine RBC 0 /HPF (0-2) Urine WBC 0 /HPF (0-4) Urine Squamous Epithelial Cells Mod /LPF Urine Bacteria 0 /HPF (0-FEW) Urine Mucus Marked /LPF Laboratory Tests Test 06/24/18 03:40 06/24/18 07:13 06/24/18 07:14 06/24/18 07:58 White Blood Count 15.1 x10^3/uL (4.0-11.0) Red Blood Count 5.14 x10^6/uL (3.50-5.40) Hemoglobin 15.0 g/dL (12.0-15.5) Hematocrit 46.0 % (36.0-47.0) Mean Corpuscular Volume 90 fL (79-100) Mean Corpuscular Hemoglobin 29 pg (25-35) Mean Corpuscular Hemoglobin Concent 33 g/dL (31-37) Red Cell Distribution Width 14.3 % (11.5-14.5) Platelet Count 290 x10^3/uL (140-400) Neutrophils (%) (Auto) 88 % (31-73) Lymphocytes (%) (Auto) 7 % (24-48) Monocytes (%) (Auto) 4 % (0-9) Eosinophils (%) (Auto) 1 % (0-3) Basophils (%) (Auto) 0 % (0-3) Neutrophils # (Auto) 13.4 x10^3uL (1.8-7.7) Lymphocytes # (Auto) 1.1 x10^3/uL (1.0-4.8) Monocytes # (Auto) 0.6 x10^3/uL (0.0-1.1) Eosinophils # (Auto) 0.1 x10^3/uL (0.0-0.7) Basophils # (Auto) 0.0 x10^3/uL (0.0-0.2) Segmented Neutrophils % 84 % (35-66) Band Neutrophils % 5 % (0-9) Lymphocytes % 8 % (24-48) Monocytes % 2 % (0-10) Eosinophils % 1 % (0-5) Platelet Estimate Adequate (ADEQUATE) Sodium Level 139 mmol/L (136-145) Potassium Level 4.0 mmol/L (3.5-5.1) Chloride Level 103 mmol/L (98-107) Carbon Dioxide Level 25 mmol/L (21-32) Anion Gap 11 (6-14) Blood Urea Nitrogen 15 mg/dL (7-20) Creatinine 0.9 mg/dL (0.6-1.0) Estimated GFR (Cockcroft-Gault) 66.5 BUN/Creatinine Ratio 17 (6-20) Glucose Level 123 mg/dL (70-99) Calcium Level 8.8 mg/dL (8.5-10.1) Total Bilirubin 0.3 mg/dL (0.2-1.0) Aspartate Amino Transf (AST/SGOT) 17 U/L (15-37) Alanine Aminotransferase (ALT/SGPT) 17 U/L (14-59) Alkaline Phosphatase 60 U/L (46-116) Total Protein 8.1 g/dL (6.4-8.2) Albumin 3.7 g/dL (3.4-5.0) Albumin/Globulin Ratio 0.8 (1.0-1.7) Lactic Acid Level 2.2 mmol/L (0.4-2.0) Influenza Type A Antigen Negative (NEGATIVE) Influenza Type B Antigen Negative (NEGATIVE) Urine Collection Type U cath Urine Color Yellow Urine Clarity Clear Urine pH 5.0 Urine Specific [place] 1.020 Urine Protein Negative mg/dL (NEG-TRACE) Urine Glucose (UA) Negative mg/dL (NEG) Urine Ketones (Stick) Negative mg/dL (NEG) Urine Blood Negative (NEG) Urine Nitrite Negative (NEG) Urine Bilirubin Negative (NEG) Urine Urobilinogen Dipstick 0.2 mg/dL (0.2 mg/dL) Urine Leukocyte Esterase Negative (NEG) Urine RBC 0 /HPF (0-2) Urine WBC 0 /HPF (0-4) Urine Squamous Epithelial Cells Mod /LPF Urine Bacteria 0 /HPF (0-FEW) Urine Mucus Marked /LPF VTE Prophylaxis Ordered VTE Prophylaxis Devices: Yes VTE Pharmacological Prophylaxi: Yes Assessment/Plan Assessment/Plan Acute gastroenteritis, food poisoning adrenal insufficiency on hydrocortisone pills Obesity, BMI 35 History endometriosis PLAN: Admit, liquid diet then ADA T Okay to reconcile home meds which I have done especially hydrocortisone pills Zofran antinausea meds Recheck leukocytosis tomorrow Would not do any antibiotics for now seen at ER SEDRICK HALL MD Jun 24, 2018 08:54
[2018-06-24] MEDS ORDERED: LOPERAMIDE 2 MG CAPSULE PO PRN (09:00)
[2018-06-24] MEDS ORDERED: ACETAMINOPHEN/CODEINE 300/30MG TABLET. PO PRN (09:00)
[2018-06-24] MEDS ORDERED: ACETAMINOPHEN 500 MG TABLET PO PRN (09:00)
[2018-06-24] MEDS ORDERED: ONDANSETRON ODT 4 MG TAB.RAPDIS. PO PRN ×2 (09:00→22:00)
[2018-06-24 09:25] VITALS: BP 95/48
--- NOTE | 2018-06-24 10:00 | NUR ---
Patient Lorena Coughlin 48/F, admitted due to nausea, vomiting and diarrhea since last night. She is awake, alert, oriented x4, complains of pain 7/10 on her abdomen. IV fluid is running at 150 ml/hour. Patient is oriented to the unit, use of electronics, and fall prevention policy. Call light was placed within reach. Nursing staff to continue monitoring patient.
[2018-06-24 11:14] VITALS: BP 93/45
[2018-06-24] MEDS: CALCIUM CARBONATE 500 MG TABLET PO SCH (13:53)
[2018-06-24] MEDS: CHOLECALCIFEROL (VITAMIN D3) 1,000 UNIT TABLET PO SCH (13:53)
[2018-06-24] MEDS: HYDROCORTISONE 10 MG TABLET PO SCH (13:54)
[2018-06-24] MEDS: ONDANSETRON PF 4 MG/2 ML VIAL. IV PRN ×2 (14:01→22:18)
[2018-06-24 15:37] VITALS: BP 107/52
[2018-06-24] MEDS: HYDROcodone/APAP 5/325MG 1 TAB TABLET PO PRN (18:25)
[2018-06-24 19:30] VITALS: BP 104/53
[2018-06-24] MEDS ORDERED: CYCLOBENZAPRINE 10 MG TABLET. PO PRN (22:00)
[2018-06-24] MEDS ORDERED: traMADol 50 MG TABLET PO PRN (22:00)
[2018-06-24] MEDS ORDERED: GABAPENTIN 300 MG CAPSULE. PO PRN (22:00)
[2018-06-24 23:51] VITALS: BP 127/73
[2018-06-25 03:25] VITALS: BP 98/52
[2018-06-25] MEDS: IV NORMAL SALINE 1000ML BAG 1,000 ML IV SCH (06:27)
[2018-06-25 07:00] VITALS: BP 113/67
[2018-06-25] MEDS ORDERED: HYDROCORTISONE 10 MG TABLET PO SCH (08:00)
[2018-06-25] MEDS: CALCIUM CARBONATE 500 MG TABLET PO SCH (09:55)
[2018-06-25] MEDS: CHOLECALCIFEROL (VITAMIN D3) 1,000 UNIT TABLET PO SCH (09:56)
[2018-06-25 11:00] VITALS: BP 100/53
[2018-06-25] MEDS: HYDROCORTISONE 10 MG TABLET PO SCH (14:18)
--- NOTE | 2018-06-25 14:38 | PDOC2 ---
GI CONSULT Reason For Consult: Diarrhea HPI: HPI: 48 y/o female who we have seen in the past fo similar symptoms. [place] well until yesterday, then acute onset of vomiting, abd pain, diarrhea, fever, hypotension, and shaking. Possibly precipitated by eating spaghetti and meatballs and drinking a Spite that tasted like dirty water at [employer]. Also, she cares for her grandchildren and they have been sick w/ diarrhea for the past 2 weeks. Tolerated some lunch this afternoon but abdomen feels crampy. H/o [facility], sees endocrinology at on hydrocortisone (she says 20mg QD). Was given 100mg Solu-Cortef IV x 1 in ER, on PO steroids now. Has had a lot of heartburn and acid reflux for the past month. No dysphagia. No hematemesis, hematochezia, or melena. H/o irregular bowel pattern - reports some post-prandial diarrhea alternating w/ days of no stools. Remote h/o "ulcers" on EGD in [place] >10 years ago. No previous colonoscopy. S/p cholecystectomy. Reports elevation of liver enzymes in the past related to Tylenol use. No pancreas history. PMH: PMH: asthma, chronic back and neck pain, adrenal insufficiency, endometriosis, osteopenia, DDD right salpingo-oophorectomy, umbilical hernia repair, cholecystectomy, hysterectomy, bilateral hand surgeries FH: Family History: Cancer, CAD, DM, Other (sister - "GI problems") Social History: Smoke: No ALCOHOL: rare Drugs: None ROS: GEN: +fever HEENT: Denies blurred vision, sore throat CV: Denies chest pain RESP: Denies shortness of air, cough GI: Per HPI : Denies hematuria, dysuria ENDO: Denies weight changes NEURO: Denies confusion, dizziness MSK: +RLE swelling SKIN: Denies jaundice, pruritus Vitals: Vitals: Vital Signs Date Time Temp Pulse Resp B/P (MAP) Pulse Ox O2 Delivery O2 Flow Rate FiO2 06/25/18 11:00 98.2 87 18 100/53 (69) 96 Nasal Cannula 2.0 98.2 Allergies: Coded Allergies: Iodinated Contrast- Oral and IV Dye (Verified Allergy, Intermediate, 10/15/13) Sulfa (Sulfonamide Antibiotics) (Verified Allergy, Intermediate, Unknown, 10/15/13) codeine (Verified Allergy, Intermediate, 07/20/16) guaifenesin (Verified Allergy, Intermediate, 07/20/16) morphine (Verified Allergy, Intermediate, Patient is can take PO Morphine, 07/20/16) pamabrom (Verified Allergy, Intermediate, 07/20/16) Latex, Natural Rubber (Verified Allergy, Mild, ITCHY, RASH, 08/02/15) aspirin (Verified Adverse Reaction, Intermediate, NAUSEA/VOMITING, 06/24/18) ibuprofen (Verified Adverse Reaction, Intermediate, NAUSEA/VOMITING, 06/24/18) Medications: Current Medications Medications (Trade) Dose Ordered Sig/[place] Route PRN Reason Start Time Stop Time Status Last Admin Dose Admin Hydrocortisone (Cortef) 15 mg [id number] PO 06/25/18 08:00 06/25/18 09:56 Imaging: Imaging: CT A/P w/o contrast 06/24 FINDINGS: Motion somewhat limits exam. Suspected groundglass opacity dependently at right greater than left lung base. Abdominal aorta is not aneurysmal. Postcholecystectomy changes. No peripancreatic fluid collection. Motion artifact limits evaluation of the upper abdomen. Some haziness of the adjacent fat however there is motion through this region. Spleen not grossly enlarged. No left-sided hydronephrosis. Urinary bladder is partially distended at time of exam. No right-sided hydronephrosis. No periappendiceal inflammation. Mildly prominent loops of small bowel in the left-sided the abdomen measuring up to about 35 mm. Degenerative changes the spine with disc protrusions and osteophyte formation as well as facet hypertrophy contributing to central canal and neural foraminal stenosis. IMPRESSION: 1. Motion limits this examination. At the pancreas there is questionable hazi ness adjacent to it. This is most likely secondary to motion artifact but would correlate with symptoms in the region to ensure that there is not a pathologic cause such as mild edema from pancreatitis. 2. No definite evidence of colitis or appendicitis. 3. Within the left-side of abdomen there is a few mildly prominent loops of small bowel identified measuring up to about 35 mm with prominence the wall. Could be secondary to phase of peristalsis however alternative causes such as enteritis is within the differential. There is typically more severe bowel dilation than this with a bowel obstruction although a very early partial small bowel obstruction would be difficult to exclude. 4. No hydronephrosis. Mild groundglass opacities lung bases. Most likely cause would be atelectasis. PE: GEN: NAD HEENT: Atraumatic, PERRL LUNGS: CTAB, NC 2L HEART: RRR ABD: NABS, S/ND, not particularly tender EXTREMITY: No edema SKIN: No rashes, no jaundice NEURO/PSYCH: A & O 3, very talkative A/P: A/P: Vomiting, abd pain, diarrhea [facility] Heartburn, remote h/o ulcer IBS CRC screen - average risk S/p cholecystectomy -- ?infectious/viral, complicated w/ h/o adrenal insufficiency Will review steroid dosing w/ Dr. Dotson. Note stool culture and C Diff ordered. Add PPI. Nearly due for outpt screening colonoscopy due to age, consider tandem EGD if heartburn persists. NELSON MAR Jun 25, 2018 14:38
--- NOTE | 2018-06-25 14:40 | PDOC ---
PROGRESS NOTES Chief Complaint Chief Complaint Acute gastroenteritis, poss viral, r/o Cdiff adrenal insufficiency on hydrocortisone pills Obesity, BMI 35 History endometriosis prior constipation and diarrhea complaints History of Present Illness History of Present Illness consutl GI increase steroids supportive care stool cx cont current Vitals Vitals Vital Signs Date Time Temp Pulse Resp B/P (MAP) Pulse Ox O2 Delivery O2 Flow Rate FiO2 06/25/18 11:00 98.2 87 18 100/53 (69) 96 Nasal Cannula 2.0 98.2 Physical Exam General: No acute distress Lungs: Clear, Other Abdomen: Soft, Other (hyperactive bowel sounds, no guarding) Extremities: No clubbing, No cyanosis, No edema, Normal pulses, No tenderness/swelling Skin: No rashes, No breakdown, No significant lesion Review of Systems Review of Systems diarrhea again last night, "for hours: Assessment and Plan Assessmemt and Plan Problems Medical Problems: (1) Acute gastroenteritis Status: Acute (2) Adrenal insufficiency Status: Acute (3) Nausea vomiting and diarrhea Status: Acute (4) Sepsis Status: Acute Comment Review of Relevant I have reviewed the following items melva (where applicable) has been applied. Labs Laboratory Tests Test 06/24/18 03:40 06/24/18 07:13 06/24/18 07:14 06/24/18 07:58 White Blood Count 15.1 x10^3/uL (4.0-11.0) Red Blood Count 5.14 x10^6/uL (3.50-5.40) Hemoglobin 15.0 g/dL (12.0-15.5) Hematocrit 46.0 % (36.0-47.0) Mean Corpuscular Volume 90 fL (79-100) Mean Corpuscular Hemoglobin 29 pg (25-35) Mean Corpuscular Hemoglobin Concent 33 g/dL (31-37) Red Cell Distribution Width 14.3 % (11.5-14.5) Platelet Count 290 x10^3/uL (140-400) Neutrophils (%) (Auto) 88 % (31-73) Lymphocytes (%) (Auto) 7 % (24-48) Monocytes (%) (Auto) 4 % (0-9) Eosinophils (%) (Auto) 1 % (0-3) Basophils (%) (Auto) 0 % (0-3) Neutrophils # (Auto) 13.4 x10^3uL (1.8-7.7) Lymphocytes # (Auto) 1.1 x10^3/uL (1.0-4.8) Monocytes # (Auto) 0.6 x10^3/uL (0.0-1.1) Eosinophils # (Auto) 0.1 x10^3/uL (0.0-0.7) Basophils # (Auto) 0.0 x10^3/uL (0.0-0.2) Segmented Neutrophils % 84 % (35-66) Band Neutrophils % 5 % (0-9) Lymphocytes % 8 % (24-48) Monocytes % 2 % (0-10) Eosinophils % 1 % (0-5) Platelet Estimate Adequate (ADEQUATE) Sodium Level 139 mmol/L (136-145) Potassium Level 4.0 mmol/L (3.5-5.1) Chloride Level 103 mmol/L (98-107) Carbon Dioxide Level 25 mmol/L (21-32) Anion Gap 11 (6-14) Blood Urea Nitrogen 15 mg/dL (7-20) Creatinine 0.9 mg/dL (0.6-1.0) Estimated GFR (Cockcroft-Gault) 66.5 BUN/Creatinine Ratio 17 (6-20) Glucose Level 123 mg/dL (70-99) Calcium Level 8.8 mg/dL (8.5-10.1) Total Bilirubin 0.3 mg/dL (0.2-1.0) Aspartate Amino Transf (AST/SGOT) 17 U/L (15-37) Alanine Aminotransferase (ALT/SGPT) 17 U/L (14-59) Alkaline Phosphatase 60 U/L (46-116) Total Protein 8.1 g/dL (6.4-8.2) Albumin 3.7 g/dL (3.4-5.0) Albumin/Globulin Ratio 0.8 (1.0-1.7) Lactic Acid Level 2.2 mmol/L (0.4-2.0) Influenza Type A Antigen Negative (NEGATIVE) Influenza Type B Antigen Negative (NEGATIVE) Urine Collection Type U cath Urine Color Yellow Urine Clarity Clear Urine pH 5.0 Urine Specific [place] 1.020 Urine Protein Negative mg/dL (NEG-TRACE) Urine Glucose (UA) Negative mg/dL (NEG) Urine Ketones (Stick) Negative mg/dL (NEG) Urine Blood Negative (NEG) Urine Nitrite Negative (NEG) Urine Bilirubin Negative (NEG) Urine Urobilinogen Dipstick 0.2 mg/dL (0.2 mg/dL) Urine Leukocyte Esterase Negative (NEG) Urine RBC 0 /HPF (0-2) Urine WBC 0 /HPF (0-4) Urine Squamous Epithelial Cells Mod /LPF Urine Bacteria 0 /HPF (0-FEW) Urine Mucus Marked /LPF Test 06/24/18 10:59 Lactic Acid Level 1.3 mmol/L (0.4-2.0) Medications Current Medications Ondansetron HCl (Zofran) 4 mg 1X ONCE IV Last administered on 06/24/18 03:40; Start 06/24/18 at 03:45; Stop 06/24/18 at 03:46; Status DC Sodium Chloride 1,000 ml @ 1,000 mls/hr 1X ONCE IV Last administered on 06/24/18 03:39; Start 06/24/18 at 03:45; Stop 06/24/18 at 04:44; Status DC Fentanyl Citrate (Fentanyl 2ml Vial) 50 mcg 1X ONCE IV Last administered on 06/24/18at 03:52; Start 06/24/18 at 03:45; Stop 06/24/18 at 03:46; Status DC Sodium Chloride 1,000 ml @ 1,000 mls/hr 1X ONCE IV Last administered on 06/24/18at 03:40; Start 06/24/18 at 03:45; Stop 06/24/18 at 04:44; Status DC Lorazepam (Ativan) 1 mg 1X ONCE IV Last administered on 06/24/18at 04:29; Start 06/24/18 at 04:30; Stop 06/24/18 at 04:31; Status DC Acetaminophen (Tylenol) 1,000 mg 1X ONCE PO Last administered on 06/24/18at 06:16; Start 06/24/18 at 05:45; Stop 06/24/18 at 05:46; Status DC Sodium Chloride 1,000 ml @ 1,000 mls/hr 1X ONCE IV Last administered on 06/24/18at 06:21; Start 06/24/18 at 05:45; Stop 06/24/18 at 06:44; Status DC Methylprednisolone Sodium Succinate (SOLU-Medrol 125MG VIAL) 125 mg 1X ONCE IV Last administered on 06/24/18at 06:21; Start 06/24/18 at 06:15; Stop 06/24/18 at 06:16; Status DC Piperacillin Sod/ Tazobactam Sod 3.375 gm/Sodium Chloride 50 ml @ 100 mls/hr 1X ONCE IV Last administered on 06/24/18at 08:15; Start 06/24/18 at 07:15; Stop 06/24/18 at 07:44; Status DC Ketorolac Tromethamine (Toradol 30mg Vial) 30 mg 1X ONCE IV Last administered on 06/24/18at 08:53; Start 06/24/18 at 07:30; Stop 06/24/18 at 08:25; Status DC Fentanyl Citrate (Fentanyl 2ml Vial) 50 mcg 1X ONCE IV Last administered on 06/24/18at 08:13; Start 06/24/18 at 07:30; Stop 06/24/18 at 07:31; Status DC Sodium Chloride 1,000 ml @ 150 mls/hr Q6H40M IV Last administered on 06/25/18at 06:27; Start 06/24/18 at 07:34; Stop 06/25/18 at 07:33; Status DC Hydrocortisone Sodium Succinate (Solu-CORTEF) 100 mg 1X ONCE IV Last administered on 06/24/18at 08:03; Start 06/24/18 at 07:45; Stop 06/24/18 at 07:46; Status DC Loperamide HCl (Imodium) 2 mg PRN Q15MIN PRN PO DIARRHEA; Start 06/24/18 at 09:00 Ondansetron HCl (Zofran) 4 mg PRN Q6HRS PRN IV NAUSEA/VOMITING Last adm inistered on 06/24/18at 22:18; Start 06/24/18 at 09:00 Ondansetron HCl (Zofran Odt) 4 mg PRN Q6HRS PRN PO NAUSEA/VOMITING; Start 06/24/18 at 09:00 Acetaminophen (Tylenol) 500 mg PRN Q6HRS PRN PO MILD PAIN / TEMP; Start 06/24/18 at 09:00 Acetaminophen/ Codeine Phosphate (Tylenol #3) 1 tab PRN Q6HRS PRN PO PAIN; Start 06/24/18 at 09:00; Status UNV Hydrocortisone (Cortef) 15 mg DAILYWBKFT PO Last administered on 06/25/18at 09:56; Start 06/25/18 at 08:00 Hydrocortisone (Cortef) 25 mg DAILY@1400 PO Last administered on 06/25/18at 14:18; Start 06/24/18 at 14:00 Vitamin D (Vitamin D3) 2,000 unit DAILY PO Last administered on 06/25/18at 09:56; Start 06/24/18 at 09:00 Calcium Carbonate/ Glycine (Oscal) 1,000 mg DAILY PO Last administered on 06/25/18at 09:55; Start 06/24/18 at 09:00 Acetaminophen/ Hydrocodone Bitart (Lortab 5/325) 1 tab PRN Q4HRS PRN PO MOD TO SEVERE PAIN Last administered on 06/24/18at 18:25; Start 06/24/18 at 09:00 Cyclobenzaprine HCl (Flexeril) 10 mg PRN Q8HRS PRN PO MUSCLE SPASMS; Start 06/24/18 at 22:00 Gabapentin (Neurontin) 300 mg PRN DAILY PRN PO MUSCLE PAIN; Start 06/24/18 at 22:00 Tramadol HCl (Ultram) 50 mg PRN Q6HRS PRN PO MODERATE PAIN; Start 06/24/18 at 22:00 Ondansetron HCl (Zofran Odt) 4 mg PRN Q8HRS PRN PO NAUSEA/VOMITING 1ST CHOICE; Start 06/24/18 at 22:00; Stop 06/24/18 at 22:00; Status DC Active Scripts Active Zofran (Ondansetron Hcl) 4 Mg Tablet 4 Mg PO PRN TID PRN nausea/vomiting Medrol (Methylprednisolone) 4 Mg Tab.ds.pk 1 Pkg PO UD Cipro (Ciprofloxacin Hcl) 250 Mg Tablet 500 Mg PO BID 5 Days Flagyl (Metronidazole) 500 Mg Tablet 500 Mg PO Q12HR 5 Days Hydrocodone-Apap 5-325 (Hydrocodone Bit/Acetaminophen) 1 Each Tablet 1 Tab PO PRN Q6HRS PRN Proair Hfa Inhaler (Albuterol Sulfate) 8.5 Gm Hfa.aer.ad 1 Puff INH PRN Q6HRS PRN [place] 5-325 Tablet (Acetaminophen/Hydrocodone Bitart) 1 Each Tablet 1-2 Tab PO Q4-6HRS Reported Tramadol Hcl 50 Mg Tablet 50 Mg PO Q6H PRN Cyclobenzaprine Hcl 10 Mg Tablet 1 Tab PO PRN PRN Gabapentin (Gabapentin) 300 Mg Capsule 300 Mg PO DAILY PRN 30 Days Potassium Gluconate 99 Mg Tablet 99 Mg PO PRN PRN takes for "adrenaline attack" Fludrocortisone Acetate 0.1 Mg Tablet 0.1 Mg PO PRN patient takes for "adrenaline attack" Vitals/I & O Vital Sign - Last 24 Hours 06/24/18 06/24/18 06/24/18 06/24/18 15:37 18:25 19:30 23:51 Temp 98.3 98.1 98.6 98.3 98.1 98.6 Pulse 111 103 91 Resp 18 18 16 16 B/P (MAP) 107/52 (70) 104/53 (70) 127/73 (91) Pulse Ox 94 94 95 94 O2 Delivery Room Air Nasal Cannula Nasal Cannula O2 Flow Rate 2.0 2.0 2.0 06/25/18 06/25/18 06/25/18 06/25/18 03:25 07:00 08:00 11:00 Temp 98.2 98.4 98.2 98.2 98.4 98.2 Pulse 96 71 87 Resp 16 16 18 B/P (MAP) 98/52 (67) 113/67 (82) 100/53 (69) Pulse Ox 94 96 96 O2 Delivery Nasal Cannula Nasal Cannula Nasal Cannula O2 Flow Rate 2.0 2.0 2.0 2.0 Intake and Output 06/24/18 06/24/18 06/25/18 15:00 23:00 07:00 Intake Total 1050 ml 1380 ml 1790 ml Balance 1050 ml 1380 ml 1790 ml JANAE SILVA MD Jun 25, 2018 14:40
--- NOTE | 2018-06-25 14:52 | PDOC2 ---
GI CONSULT Reason For Consult: Diarrhea HPI: HPI: 48 y/o female known to us. Ate at [employer] Friday night, followed by onset of severe abdominal cramping, N, V and non-bloody diarrhea; eventually prostrated and hypotensive. To ER by EMS with continued issues. Received IVF's and ultimately one dose of SoluMedrol; transiently better. and she did share some food. may have had similar, but milder issues. There have been ill children in the home. 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 Currently on her usual replacement steroid dose, but continued cramping pc, though diarrhea better. Recently more heartburn, using "lots of TUMS"; denies dysphagia. Had EGD ~10+ years ago for continued symptoms post-vivian and told "tiny ulcer", but given no treatment. S/p vivian. H/o elevated LFT's (attributed to Tylenol). No pancreatic history. Denies tobacco or excess alcohol use. Typically stools f luctuate from loose after eating (maybe 2 daily) to "constipation". No h/o melena. Never colonoscopy. GIFH negative for documented inheritable issues. PMH: PMH: Jose's, asthma, spinal OA, endometriosis. S/p hyster, vivian, hand surgeries, removal of intra-abdominal "tumor". Status of ovaries unclear. FH: Family History: Cancer, CAD, DM, Other (Sister with "GI problems") Social History: Smoke: No ALCOHOL: social Drugs: None ROS: GEN: Denies fevers, chills, sweats HEENT: Denies blurred vision, sore throat CV: Denies chest pain RESP: Denies shortness of air, cough GI: Per HPI : Denies hematuria, dysuria ENDO: Denies weight changes NEURO: Denies confusion, dizziness MSK: Denies weakness, joint pain/swelling SKIN: Denies jaundice, pruritus Vitals: Vitals: Vital Signs Date Time Temp Pulse Resp B/P (MAP) Pulse Ox O2 Delivery O2 Flow Rate FiO2 06/25/18 11:00 98.2 87 18 100/53 (69) 96 Nasal Cannula 2.0 98.2 Labs: Labs: Reviewed. Allergies: Coded Allergies: Iodinated Contrast- Oral and IV Dye (Verified Allergy, Intermediate, 10/15/13) Sulfa (Sulfonamide Antibiotics) (Verified Allergy, Intermediate, Unknown, 10/15/13) codeine (Verified Allergy, Intermediate, 07/20/16) guaifenesin (Verified Allergy, Intermediate, 07/20/16) morphine (Verified Allergy, Intermediate, Patient is can take PO Morphine, 07/20/16) pamabrom (Verified Allergy, Intermediate, 07/20/16) Latex, Natural Rubber (Verified Allergy, Mild, ITCHY, RASH, 08/02/15) aspirin (Verified Adverse Reaction, Intermediate, NAUSEA/VOMITING, 06/24/18) ibuprofen (Verified Adverse Reaction, Intermediate, NAUSEA/VOMITING, 06/24/18) Medications: Current Medications Medications (Trade) Dose Ordered Sig/Cordelia Route PRN Reason Start Time Stop Time Status Last Admin Dose Admin Hydrocortisone (Cortef) 15 mg DAILYWBKFT PO 06/25/18 08:00 06/25/18 09:56 Imaging: Imaging: On CT A/P: IMPRESSION: 1. Motion limits this examination. At the pancreas there is questionable haziness adjacent to it. This is most likely secondary to motion artifact but would correlate with symptoms in the region to ensure that there is not a pathologic cause such as mild edema from pancreatitis. 2. No definite evidence of colitis or appendicitis. 3. Within the left-side of abdomen there is a few mildly prominent loops of small bowel identified measuring up to about 35 mm with prominence the wall. Could be secondary to phase of peristalsis however alternative causes such as enteritis is within the differential. There is typically more severe bowel dilation than this with a bowel obstruction although a very early partial small bowel obstruction would be difficult to exclude. 4. No hydronephrosis. Mild groundglass opacities lung bases. Most likely cause would be atelectasis. Reviewed this independently. PE: GEN: NAD HEENT: Atraumatic, PERRLA LUNGS: CTAB HEART: RRR, no murmurs ABD: NABS, S/ND/mildly tender, no masses EXTREMITY: No edema SKIN: No rashes, no jaundice NEURO/PSYCH: A & O 3 A/P: A/P: IMP: History suggests toxic food poisoning. Unfortunately, once patients with Hendry's develop emesis and unable to keep down steroids, they often "crash". While some better, would probably benefit from "stress level" steroid replacement for a short while. Cannot r/o some coincident gastroenteritis, but not likely bacterial. Recent heartburn. S/p vivian. History of "ulcer". Almost due for CRC screening. REC: Replacement dose steroids. Observe on this. Fecal leukocytes. As better, OK to advance diet as tolerated. Outpatient colonoscopy and EGD once better. --other pending. Thanks. Please call if questions. KARINE KIRK MD Jun 25, 2018 14:52
[2018-06-25 15:00] VITALS: BP 120/71
[2018-06-25 15:16] LABS: BASO % 0 % (0-3); EOS % 0 % (0-3); HEMATOCRIT 35.1 % (36.0-47.0); HEMOGLOBIN 11.8 g/dL (12.0-15.5); LYMPH # 1.2 x10^3/uL (1.0-4.8); LYMPH % 11 % (24-48); MEAN CORPUSCULAR HEMOGLOBIN 30 pg (25-35); MEAN CORPUSCULAR HGB CONC 34 g/dL (31-37); MEAN CORPUSCULAR VOLUME 89 fL (79-100); MONO # 0.7 x10^3/uL (0.0-1.1); MONO % 6 % (0-9); NEUT % 82 % (31-73); PLATELET COUNT 208 x10^3/uL (140-400); RED BLOOD COUNT 3.93 x10^6/uL (3.50-5.40); RED CELL DISTRIBUTION WIDTH 14.4 % (11.5-14.5); WHITE BLOOD COUNT 10.9 x10^3/uL (4.0-11.0)
[2018-06-25 15:38] LABS: ALBUMIN 2.7 g/dL (3.4-5.0); ALBUMIN/GLOBULIN RATIO 0.8 (1.0-1.7); CALCIUM 7.9 mg/dL (8.5-10.1); CREATININE 0.8 mg/dL (0.6-1.0); GFR 76.2; POTASSIUM 3.5 mmol/L (3.5-5.1); TOTAL BILIRUBIN 0.2 mg/dL (0.2-1.0)
[2018-06-25] MEDS: PANTOPRAZOLE 40 MG TABLET.DR. PO SCH (15:38)
[2018-06-25] MEDS: HYDROCORTISONE SOD SUCC/PF 100 MG/2 ML VIAL. IV SCH ×2 (15:38→21:59)
[2018-06-25] MEDS: HYDROcodone/APAP 5/325MG 1 TAB TABLET PO PRN (19:40)
[2018-06-25 19:47] VITALS: BP 120/65
[2018-06-25] MEDS: ONDANSETRON PF 4 MG/2 ML VIAL. IV PRN (20:05)
[2018-06-25 23:32] VITALS: BP 119/59
[2018-06-26] MEDS: MAG HYDROX/ALUMINUM HYD/SIMETH 30 ML ORAL.SUSP PO PRN ×2 (03:00→08:41)
[2018-06-26 03:43] VITALS: BP 111/59
[2018-06-26] MEDS: HYDROCORTISONE SOD SUCC/PF 100 MG/2 ML VIAL. IV SCH ×2 (05:52→13:16)
[2018-06-26 07:00] VITALS: BP 126/66
[2018-06-26] MEDS: CHOLECALCIFEROL (VITAMIN D3) 1,000 UNIT TABLET PO SCH (08:39)
[2018-06-26] MEDS: CALCIUM CARBONATE 500 MG TABLET PO SCH (08:39)
[2018-06-26] MEDS: PANTOPRAZOLE 40 MG TABLET.DR. PO SCH (08:39)
[2018-06-26] MEDS: HYDROcodone/APAP 5/325MG 1 TAB TABLET PO PRN (08:41)
--- NOTE | 2018-06-26 09:52 | NUR ---
SW following pt for anticipated dc needs. Chart reviewed. Pt lives at home with spouse and is independent with ambulation. No dc recommendation/SW needs noted at this time.
[2018-06-26 11:00] VITALS: BP 122/67
[2018-06-26] MEDS ORDERED: POTASSIUM CHLORIDE 20 MEQ TABLET.ER. PO ONE (12:45)
[2018-06-26] MEDS ORDERED: LOPE2CAP PO (12:59)
[2018-06-26] MEDS ORDERED: PRED2.5T PO (12:59)
[2018-06-26] MEDS ORDERED: ONDA4TAB7 PO (12:59)
--- NOTE | 2018-06-26 13:18 | PDOC ---
Subjective: Subjective: Gas last night after taking a pain pill on an empty stomach. Tolerating PO w/o n/v. Formed stool. Feeling emotional. 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 Objective: Vital Signs: Vital Signs Date Time Temp Pulse Resp B/P (MAP) Pulse Ox O2 Delivery O2 Flow Rate FiO2 06/26/18 11:00 99.1 72 18 122/67 (85) 96 Nasal Cannula 2.0 99.1 Labs: Laboratory Tests Test 06/25/18 15:10 White Blood Count 10.9 x10^3/uL Red Blood Count 3.93 x10^6/uL Hemoglobin 11.8 g/dL Hematocrit 35.1 % Mean Corpuscular Volume 89 fL Mean Corpuscular Hemoglobin 30 pg Mean Corpuscular Hemoglobin Concent 34 g/dL Red Cell Distribution Width 14.4 % Platelet Count 208 x10^3/uL Neutrophils (%) (Auto) 82 % Lymphocytes (%) (Auto) 11 % Monocytes (%) (Auto) 6 % Eosinophils (%) (Auto) 0 % Basophils (%) (Auto) 0 % Neutrophils # (Auto) 9.0 x10^3uL Lymphocytes # (Auto) 1.2 x10^3/uL Monocytes # (Auto) 0.7 x10^3/uL Eosinophils # (Auto) 0.0 x10^3/uL Basophils # (Auto) 0.0 x10^3/uL Sodium Level 144 mmol/L Potassium Level 3.5 mmol/L Chloride Level 110 mmol/L Carbon Dioxide Level 26 mmol/L Anion Gap 8 Blood Urea Nitrogen 6 mg/dL Creatinine 0.8 mg/dL Estimated GFR (Cockcroft-Gault) 76.2 BUN/Creatinine Ratio 8 Glucose Level 116 mg/dL Calcium Level 7.9 mg/dL Total Bilirubin 0.2 mg/dL Aspartate Amino Transf (AST/SGOT) 10 U/L Alanine Aminotransferase (ALT/SGPT) 15 U/L Alkaline Phosphatase 45 U/L Total Protein 6.0 g/dL Albumin 2.7 g/dL Albumin/Globulin Ratio 0.8 PE: GEN: NAD - eating lunch, sitting up in bed, Dr. Puente present LUNGS: room air NEURO/PSYCH: tearful at first, very talkative A/P: Vomiting, abd pain, diarrhea - resolved [place]'s H/o heartburn, suspect IBS -- ?duration of IV steroid replacement - will review w/ Dr. Dotson. Continue PPI, follow-up for outpt scopes. NELSON MAR Jun 26, 2018 13:18
[2018-06-26 15:00] VITALS: BP 124/76
--- NOTE | 2018-06-26 17:55 | NUR ---
Discharge Note: MARIBEL IRAHETA [address] [place] [address] Discharge instructions and discharge home medications reviewed with Patient and a copy given. All questions have been answered and understanding verbalized. The following instructions and handouts were given: F/U with PCP within one week. 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 Discontinued lines and drains: Peripheral IV intact. Patient discharged to Home or Self Care with family member via wheelchair.
== END 2018-06-26 17:55 | disposition home or self-care (01) | DRG 872 ==
LOC: ER 03:02 → 6 SOUTH 07:07
PROVIDERS: ADMIT Internal Medicine; ATTEND Internal Medicine
DX: A41.9 Sepsis, unspecified organism (principal); E27.40 Unspecified adrenocortical insufficiency; K52.9 Noninfective gastroenteritis and colitis, unspecified; E66.9 Obesity, unspecified; G89.29 Other chronic pain; K21.9 Gastro-esophageal reflux disease without esophagitis; Z90.710 Acquired absence of both cervix and uterus; Z90.49 Acquired absence of other specified parts of digestive tract; Z79.52 Long term (current) use of systemic steroids; Z82.49 Family history of ischemic heart disease and other diseases of the circulatory system; Z83.3 Family history of diabetes mellitus; Z68.35 Body mass index [BMI] 35.0-35.9, adult
CPT/HCPCS: 36415; 74176; 80053; 81001; 83605; 85007; 85025; 87040; 87045; 87205; 87493; 87804; 96361; 96365; 96375; 99291; J1720; J1885; J2060; J2405; J2543; J2930; J3010; J7030

== ENCOUNTER → 2018-07-13 | Day surgery (SDC) | payer OTHER ==
[~2018-07-13] MED LIST changes: +IV RINGERS,LACTATED 1000ML 1,000 ML IV SCH; +LIDOCAINE 2% PF 5 ML VIAL. ONE; +LOPE2CAP PO; +ONDA4TAB7 PO; +PRED2.5T PO; +PROPOFOL 20 ML IV ONE; +PROPOFOL 60 ML IV ONE
--- NOTE | 2018-07-13 14:42 | PDOC4 ---
PROCEDURE Procedure EGD/colonoscopy Indications: heartburn/diarrhea/screen Meds: per anesthesia Findings: THIAGO: normal --'Scope advanced to cecum. Prep only fair. No diverticulosis or polyps seen. From distal transverse to proximal descending colon, changes c/w ischemic (non- occlusive) colitis. Mucosa otherwise normal. Random biopsies from right colon and rectum re: the diarrhea. Small IH's on retroflex. E--Distal erosion right wall 37-38 cm. G--Mild antral erythema, biopsied. D--Normal to second portion. Maxwell. well. IMP: Ischemic colitis, non-occlusive. Internal hemorrhoids. GERD Antral erythema REC: Start OTC omeprazole 20mg daily. Await biopsies. F/u in 2 weeks. Resume other meds and diet as before. KARINE KIRK MD July 13, 2018 14:42
[2018-07-13 15:08] VITALS: BP 113/66
--- NOTE | 2018-07-15 15:06 | PATHOLOGY ---
[facility] Accession Number: [id number] . 01 Material submitted: . PART A: gastrointestinal site - ANTRAL BX PART B: colon - CECUM AND ASCENDING COLON BX. Modifiers: ascending PART C: rectum - RECTUM BX . 01 Clinical history: . Reflux . 02 Diagnosis: A. Gastric biopsy, antrum: - Chronic gastritis, mild. . B. Colon biopsies, cecum and ascending colon: - No significant pathologic abnormalities. . C. Colorectal biopsies, rectum: - No significant pathologic abnormalities. (JPM:lesly; 07/15/2018) QMS/07/15/2018 . 02 Comment: Sections of the gastric antral biopsy show congestion and mild chronic inflammation. A properly controlled immunoperoxidase stain for Helicobacter is negative for Helicobacter organisms. . Sections of the cecal and ascending colon biopsies reveal multiple segments of colonic mucosa containing several mucosal-associated lymphoid aggregates. There is no evidence of chronic destructive colitis, collagenous colitis, lymphocytic colitis, or ischemic colitis. . Sections of the rectal biopsy reveal multiple segments of rectal mucosa containing a few mucosal-associated lymphoid aggregates. There is no evidence of chronic destructive colitis, collagenous colitis, lymphocytic colitis, or ischemic colitis. (JPM:lesly; 07/15/2018) . Special stain performed: Immunoperoxidase stain for Helicobacter on A1. . 02 Electronically signed: . Saud Morales MD, Pathologist NPI- [id number] . 01 Gross description: . A. Received in formalin labeled "Coughlin, Lorena, antral BX," is a single segment of edwards soft tissue measuring 0.8 cm in maximum dimension. The specimen is entirely submitted in cassette A1. . B. Received in formalin labeled "Coughlin, Lorena, cecum and ascending BX," are 5 segments of edwards soft tissue measuring 1.5 x 0.9 x 0.2 cm in aggregate dimensions and ranging from 0.4 to 0.5 cm in maximum dimension. The specimen is submitted entirely in cassette B1. . C. Received in formalin labeled "Coughlin, Lorena, rectum BX," are 5 segments of edwards soft tissue measuring 1.5 x 1.5 x 0.3 cm in aggregate dimensions and ranging from 0.3 to 0.7 cm in maximum dimension. The specimen is submitted entirely in cassette C1. (TSD; 07/14/2018) TOB/TOB . 02 Pathologist provided ICD-10: K29.50, K21.9 . 02 CPT . 622863, 455741, 128426, Q79331 Specimen Comment: A courtesy copy of this report has been sent to Specimen Comment: [phone], . Specimen Comment: Report sent to / DR SANABRIA Performed at: 01 [facility] [address], [place], [place] [id number] MD Aron Morrissey MD Phone: [phone] Performed at: 02 [facility] [address] [place], [place] [id number] MD Saud Morales MD Phone: [phone]
== END | disposition home or self-care (01) ==
LOC: ENDOS 13:28
PROVIDERS: ATTEND Internal Medicine Gastroenterology
DX: K21.0 Gastro-esophageal reflux disease with esophagitis (principal); K29.50 Unspecified chronic gastritis without bleeding; K31.89 Other diseases of stomach and duodenum; K64.0 First degree hemorrhoids; K55.9 Vascular disorder of intestine, unspecified; Z91.041 Radiographic dye allergy status; Z91.040 Latex allergy status; Z88.5 Allergy status to narcotic agent; Z88.2 Allergy status to sulfonamides; Z88.8 Allergy status to other drugs, medicaments and biological substances; Z91.09 Other allergy status, other than to drugs and biological substances; J45.909 Unspecified asthma, uncomplicated; E27.1 Primary adrenocortical insufficiency; Z90.49 Acquired absence of other specified parts of digestive tract; Z90.710 Acquired absence of both cervix and uterus; Z98.890 Other specified postprocedural states; Z83.3 Family history of diabetes mellitus; Z82.49 Family history of ischemic heart disease and other diseases of the circulatory system; Z72.89 Other problems related to lifestyle; Z79.899 Other long term (current) drug therapy; Z88.6 Allergy status to analgesic agent
CPT/HCPCS: 43239; 45380; 88305; 88342; J2001; J2704

== ENCOUNTER → 2018-09-23 | Outpatient (CLI) | payer MEDICAID ==
[2018-07-13 15:08] VITALS: BP 113/66
[~2018-09-23] MED LIST changes: +CALC-98 PO; +ELAG200T PO; +HYDR-2759 PO; +HYDR5TAB3 PO; -IV RINGERS,LACTATED 1000ML 1,000 ML IV SCH; -LIDOCAINE 2% PF 5 ML VIAL. ONE; +MECL12.52 PO; +OMEP20TA63 PO; -PROPOFOL 20 ML IV ONE; -PROPOFOL 60 ML IV ONE
--- NOTE | 2018-09-23 16:46 | KCIC ---
Examination: Ultrasound pelvis HISTORY: History of endometriosis COMPARISON: 12/20/2017. FINDINGS: The uterus, right ovary could not be identified probably prior surgical changes, The left ovary measures 2.6 x 1.6 x 2.5 cm. There is a cystic structure identified in the left ovary measuring 1.5 x 1.4 x 1.8 cm. IMPRESSION: 1. 1.8 cm cystic structure identified in the left ovary could be a cyst or cystic lesion, compared to prior exam obvious solid component is not evident. Continued close interval follow-up examination is recommended or if pain persists recommend MRI pelvis for further evaluation. Electronically signed by: Enrique Sow MD (09/23/2018 4:44 PM) [facility]
== END | disposition home or self-care (01) ==
LOC: KCIC US 13:07
PROVIDERS: ATTEND Obstetrics & Gynecology
DX: R10.2 Pelvic and perineal pain (principal); N80.9 Endometriosis, unspecified
CPT/HCPCS: 76830; 76856

== ENCOUNTER 2018-12-14 06:19 | Emergency (ER) | payer MEDICAID ==
[~2018-12-14] VITALS: Ht 162.6 cm; Wt 77.1 kg
--- NOTE | 2018-12-14 06:43 | PHYS DOC ---
Past Medical History Past Medical History: Other Additional Past Medical Histor: ADRENAL FATIGUE Past Surgical History: Cholecystectomy, Hysterectomy, Oophorectomy, Tubal ligation Additional Past Surgical Histo: left and right hand surgery, back surgery,NECK SURGERY Alcohol Use: None Drug Use: None Adult General Chief Complaint Chief Complaint: ABDOMINAL PAIN HPI HPI 48-year-old female presents to the emergency department with complaints of abdominal cramping, vomiting, diarrhea. Initially abdominal cramping started yesterday described as generalized, more focused to periumbilical lower abdomen. She states nothing makes it worse nothing makes it better. She describes inability to keep anything down because of vomiting as well as multiple episodes of diarrhea this morning. Patient has chronic pain, adrenal insufficiency. Patient denies any headache, chest pain, shortness of breath. Review of Systems Review of Systems Constitutional: Denies fever or chills [] Respiratory: Denies cough or shortness of breath [] Cardiovascular: No additional information not addressed in HPI [] GI: Abdominal pain, nausea, vomiting, diarrhea : Denies dysuria or hematuria [] Musculoskeletal: Denies back pain or joint pain [] Neurologic: Denies headache, focal weakness or sensory changes [] All other systems were reviewed and found to be within normal limits, except as documented in this note. Current Medications Current Medications Current Medications Medications (Trade) Dose Ordered Sig/Cordelia Start Time Stop Time Status Last Admin Dose Admin Dicyclomine HCl (Bentyl) 10 mg 1X ONCE 12/14/18 07:00 12/14/18 07:01 DC 12/14/18 07:03 10 MG Fentanyl Citrate (Fentanyl 2ml Vial) 50 mcg 1X ONCE 12/14/18 07:00 12/14/18 07:01 DC 12/14/18 06:47 50 MCG Ondansetron HCl (Zofran) 4 mg 1X ONCE 12/14/18 07:00 12/14/18 07:01 DC 12/14/18 06:46 4 MG Sodium Chloride 1,000 ml @ 1,000 mls/hr Q1H 12/14/18 07:00 12/14/18 07:59 DC 12/14/18 06:46 1,000 MLS/HR Allergies Allergies Allergies Coded Allergies Type Severity Reaction Last Updated Verified Iodinated Contrast Media Allergy Intermediate 07/13/18 Yes Sulfa (Sulfonamide Antibiotics) Allergy Intermediate Unknown 07/13/18 Yes codeine Allergy Intermediate 07/13/18 Yes guaifenesin Allergy Intermediate 07/13/18 Yes morphine Allergy Intermediate Patient is can take PO Morphine 07/13/18 Yes pamabrom Allergy Intermediate 07/13/18 Yes Latex, Natural Rubber Allergy Mild ITCHY, RASH 07/13/18 Yes aspirin Adverse Reaction Intermediate NAUSEA/VOMITING 07/13/18 Yes ibuprofen Adverse Reaction Intermediate NAUSEA/VOMITING 07/13/18 Yes Physical Exam Physical Exam Constitutional: Well developed, well nourished, non-toxic appearance, distress secondary to pain [] HENT: Normocephalic, atraumatic, bilateral external ears normal, oropharynx moist, no oral exudates, nose normal. [] Eyes: PERRLA, EOMI, conjunctiva normal, no discharge. [] Cardiovascular:Heart rate regular rhythm, no murmur [] Lungs & Thorax: Bilateral breath sounds clear to auscultation [] Abdomen: Bowel sounds normal, tenderness appreciated to lower abdomen, no RLQ or LLQ tenderness, no masses, no pulsatile masses. [] Skin: Warm, dry, no erythema, no rash. [] Back: No tenderness, no CVA tenderness. [] Extremities: No tenderness, no edema. [] Neurologic: Alert and oriented X 3, no focal deficits noted. [] Psychologic: Affect normal, judgement normal, mood normal. [] Current Patient Data Vital Signs Vital Signs Date Time Temp Pulse Resp B/P (MAP) Pulse Ox O2 Delivery O2 Flow Rate FiO2 12/14/18 07:55 16 96 Room Air 12/14/18 06:59 104 127/72 (90) 12/14/18 06:30 98.5 98.5 Lab Values Laboratory Tests Test 12/14/18 06:35 12/14/18 06:37 12/14/18 07:19 Urine Collection Type Void Urine Color Yellow Urine Clarity Hazy Urine pH 5.0 Urine Specific [place] 1.030 Urine Protein Trace mg/dL (NEG-TRACE) Urine Glucose (UA) 100 mg/dL (NEG) Urine Ketones (Stick) Negative mg/dL (NEG) Urine Blood Moderate (NEG) Urine Nitrite Negative (NEG) Urine Bilirubin Small (NEG) Urine Urobilinogen Dipstick 0.2 mg/dL (0.2 mg/dL) Urine Leukocyte Esterase Trace (NEG) Urine RBC 1-2 /HPF (0-2) Urine WBC Occ /HPF (0-4) Urine Squamous Epithelial Cells Few /LPF Urine Bacteria Many /HPF (0-FEW) Urine Mucus Mod /LPF White Blood Count 13.5 x10^3/uL (4.0-11.0) H Red Blood Count 5.14 x10^6/uL (3.50-5.40) Hemoglobin 15.2 g/dL (12.0-15.5) Hematocrit 44.4 % (36.0-47.0) Mean Corpuscular Volume 86 fL (79-100) Mean Corpuscular Hemoglobin 30 pg (25-35) Mean Corpuscular Hemoglobin Concent 34 g/dL (31-37) Red Cell Distribution Width 14.1 % (11.5-14.5) Platelet Count 305 x10^3/uL (140-400) Neutrophils (%) (Auto) 84 % (31-73) H Lymphocytes (%) (Auto) 10 % (24-48) L Monocytes (%) (Auto) 4 % (0-9) Eosinophils (%) (Auto) 1 % (0-3) Basophils (%) (Auto) 0 % (0-3) Neutrophils # (Auto) 11.3 x10^3/uL (1.8-7.7) H Lymphocytes # (Auto) 1.4 x10^3/uL (1.0-4.8) Monocytes # (Auto) 0.6 x10^3/uL (0.0-1.1) Eosinophils # (Auto) 0.2 x10^3/uL (0.0-0.7) Basophils # (Auto) 0.1 x10^3/uL (0.0-0.2) Sodium Level 141 mmol/L (136-145) Potassium Level 3.8 mmol/L (3.5-5.1) Chloride Level 105 mmol/L (98-107) Carbon Dioxide Level 29 mmol/L (21-32) Anion Gap 7 (6-14) Blood Urea Nitrogen 18 mg/dL (7-20) Creatinine 0.9 mg/dL (0.6-1.0) Estimated GFR (Cockcroft-Gault) 66.5 BUN/Creatinine Ratio 20 (6-20) Glucose Level 120 mg/dL (70-99) H Calcium Level 8.9 mg/dL (8.5-10.1) Total Bilirubin 0.5 mg/dL (0.2-1.0) Aspartate Amino Transferase (AST) 15 U/L (15-37) Alanine Aminotransferase (ALT) 17 U/L (14-59) Alkaline Phosphatase 67 U/L (46-116) Troponin I Quantitative < 0.017 ng/mL (0.000-0.055) Total Protein 8.1 g/dL (6.4-8.2) Albumin 3.9 g/dL (3.4-5.0) Albumin/Globulin Ratio 0.9 (1.0-1.7) L Lactic Acid Level 0.8 mmol/L (0.4-2.0) Laboratory Tests 12/14/18 06:37 Laboratory Tests 12/14/18 06:37 EKG EKG [] Radiology/Procedures Radiology/Procedures [] Course & Med Decision Making Course & Med Decision Making Pertinent Labs and Imaging studies reviewed. (See chart for details) []48-year-old female presents to the emergency department with complaints of abdominal cramping, vomiting, diarrhea. Initially abdominal cramping started yesterday described as generalized, more focused to periumbilical lower abdomen. She states nothing makes it worse nothing makes it better. She describes inability to keep anything down because of vomiting as well as multiple episodes of diarrhea this morning. Patient has chronic pain, adrenal insufficiency. Patient denies any headache, chest pain, shortness of breath. Labs reviewed with patient White blood cell count elevated 13.5, given patient's vomiting and diarrhea this may be elevated. However other laboratory findings are unremarkable. Troponin less than 0.017, urinalysis without evidence of urinary tract infection. Patient received IV fluids, 1 L normal saline, Bentyl 10 mg IM, fentanyl 50 �g IV, Zofran 4 mg IV. Reassessment 0 744, patient states abdominal cramping is improved. She's had no vomiting or diarrhea since her arrival. Discussed with patient discharge plans with recommendations of continued Bentyl, Lomotil for diarrhea, Phenergan for nausea. She agrees with discharge plans, we'll continue IV fluids until completed and plan for discharge. Dragon Disclaimer Dragon Disclaimer This electronic medical record was generated, in whole or in part, using a voice recognition dictation system. Departure Departure Impression: Primary Impression: Abdominal pain Additional Impressions: Nausea & vomiting Diarrhea Disposition: 01 HOME, SELF-CARE Referrals: EDY SANABRIA MD (PCP) Patient Instructions: Abdominal Pain, Nausea and Vomiting, [id number] Additional Instructions: Recommend follow up with PCP 3 - 5 days Return to the ER with worsening symptoms, intractable pain, fever, altered mental status Tylenol/Motrin as needed for pain Take new medications as prescribed Scripts Promethazine Hcl (PROMETHAZINE HCL) 12.5 Mg Tablet 1 TAB PO Q6-8HRS for motion sickness for 5 Days, #20 TAB 0 Refills Prov: SIMI DE LA CRUZ MD 12/14/18 Diphenoxylate Hcl/Atropine (LOMOTIL TABLET) 1 Each Tablet 1 TAB PO TID for 5 Days, #15 TAB Prov: SIMI DE LA CRUZ MD 12/14/18 Dicyclomine Hcl (DICYCLOMINE HCL) 20 Mg Tablet 1 TAB PO QID for 10 Days, #40 TAB Prov: SIMI DE LA CRUZ MD 12/14/18 Problem Qualifiers Primary Impression: Abdominal pain Abdominal location: lower abdomen, unspecified Qualified Codes: R10.30 - Lower abdominal pain, unspecified Additional Impressions: Nausea & vomiting Vomiting type: unspecified Vomiting Intractability: non-intractable Qualified Codes: R11.2 - Nausea with vomiting, unspecified Diarrhea Diarrhea type: unspecified type Qualified Codes: R19.7 - Diarrhea, unspecified SIMI DE LA CRUZ MD Dec 14, 2018 06:43
[2018-12-14 06:48] LABS: BASO # 0.1 x10^3/uL (0.0-0.2); BASO % 0 % (0-3); EOS # 0.2 x10^3/uL (0.0-0.7); EOS % 1 % (0-3); HEMATOCRIT 44.4 % (36.0-47.0); HEMOGLOBIN 15.2 g/dL (12.0-15.5); LYMPH # 1.4 x10^3/uL (1.0-4.8); LYMPH % 10 % (24-48); MEAN CORPUSCULAR HEMOGLOBIN 30 pg (25-35); MEAN CORPUSCULAR HGB CONC 34 g/dL (31-37); MEAN CORPUSCULAR VOLUME 86 fL (79-100); MONO # 0.6 x10^3/uL (0.0-1.1); MONO % 4 % (0-9); NEUT # 11.3 x10^3/uL (1.8-7.7); NEUT % 84 % (31-73); PLATELET COUNT 305 x10^3/uL (140-400); RED BLOOD COUNT 5.14 x10^6/uL (3.50-5.40); RED CELL DISTRIBUTION WIDTH 14.1 % (11.5-14.5); WHITE BLOOD COUNT 13.5 x10^3/uL (4.0-11.0)
[2018-12-14 06:51] LABS: COLOR,URINE YELLOW
[2018-12-14 06:53] LABS: BILIRUBIN,URINE SMALL (NEG); CLARITY,URINE HAZY
[2018-12-14 06:54] LABS: NITRITE,URINE NEGATIVE (NEG); PROTEIN,URINE TRACE mg/dL (NEG-TRACE); UROBILINOGEN,URINE 0.2 mg/dL (0.2 mg/dL)
[2018-12-14 06:55] LABS: BACTERIA,URINE MANY /HPF (0-FEW); SQUAMOUS EPITHELIAL CELL,UR FEW /LPF; WBC,URINE OCC /HPF (0-4)
[2018-12-14 06:56] LABS: CALCIUM 8.9 mg/dL (8.5-10.1); CREATININE 0.9 mg/dL (0.6-1.0); GFR 66.5; POTASSIUM 3.8 mmol/L (3.5-5.1)
[2018-12-14] MEDS ORDERED: ONDANSETRON PF 4 MG/2 ML VIAL. IV ONE (07:00)
[2018-12-14] MEDS ORDERED: DICYCLOMINE 20 MG/2 ML AMPUL. IM ONE (07:00)
[2018-12-14] MEDS ORDERED: IV NORMAL SALINE 1000ML BAG 1,000 ML IV SCH (07:00)
[2018-12-14] MEDS ORDERED: fentaNYL PF VIAL 100 MCG/2 ML VIAL IVP ONE (07:00)
[2018-12-14 07:04] LABS: ALBUMIN 3.9 g/dL (3.4-5.0); ALBUMIN/GLOBULIN RATIO 0.9 (1.0-1.7); TOTAL BILIRUBIN 0.5 mg/dL (0.2-1.0); TOTAL PROTEIN 8.1 g/dL (6.4-8.2)
[2018-12-14] MEDS ORDERED: DIPH1TAB PO (07:49)
[2018-12-14] MEDS ORDERED: DICY20TA3 PO (07:49)
[2018-12-14] MEDS ORDERED: PROM12.58 PO (07:50)
[2018-12-14 07:59] VITALS: BP 113/53
== END 2018-12-14 08:20 | disposition home or self-care (01) ==
LOC: ER 06:19
DX: R10.31 Right lower quadrant pain (principal); R10.32 Left lower quadrant pain; R11.2 Nausea with vomiting, unspecified; R19.7 Diarrhea, unspecified; G89.29 Other chronic pain; Z88.2 Allergy status to sulfonamides; Z88.5 Allergy status to narcotic agent; Z88.8 Allergy status to other drugs, medicaments and biological substances; Z88.6 Allergy status to analgesic agent; Z91.041 Radiographic dye allergy status; Z91.040 Latex allergy status; Z90.49 Acquired absence of other specified parts of digestive tract; Z90.710 Acquired absence of both cervix and uterus; Z98.51 Tubal ligation status
CPT/HCPCS: 36415; 80053; 81001; 83605; 84484; 85025; 87086; 96361; 96372; 96374; 96375; 99285; J0500; J2405; J3010; J7030

== ENCOUNTER → 2018-12-23 | Outpatient (CLI) | payer MEDICAID ==
[2018-12-14 07:59] VITALS: BP 113/53
[~2018-12-23] MED LIST changes: +DICY20TA3 PO; +DIPH1TAB PO; +PROM12.58 PO
--- NOTE | 2018-12-23 15:48 | RAD ---
Transabdominal and transvaginal pelvic ultrasound 12/23/2018 INDICATION: Left lower quadrant pain COMPARISON STUDY: CT of the abdomen and pelvis without contrast June 24, 2018 Discussion: Transabdominal transvaginal ultrasound evaluation of the pelvis was performed. Static images are submitted to PACS. The patient is status post hysterectomy and right oophorectomy. Left ovary is visualized measuring 3.2 x 2.6 x 1.6 cm. Several small simple appearing follicles or cysts are seen largest measuring a centimeter in diameter. Blood flow to the ovarian parenchyma is preserved. No free fluid is identified. No focal sonographic abnormalities are seen. IMPRESSION: Status post hysterectomy and right oophorectomy. Small follicles or simple cyst seen within the remaining left ovary. Otherwise unremarkable exam Electronically signed by: Deven Ndiaye MD (12/23/2018 3:45 PM) [id number]
== END | disposition home or self-care (01) ==
LOC: US 13:47
PROVIDERS: ATTEND Obstetrics & Gynecology
DX: N80.9 Endometriosis, unspecified (principal); Z90.710 Acquired absence of both cervix and uterus; Z90.722 Acquired absence of ovaries, bilateral
CPT/HCPCS: 76830; 76856

== ENCOUNTER → 2019-08-04 | Outpatient (CLI) | payer MEDICAID ==
[~2019-08-04] MED LIST changes: +HYDR5TAB11 PO; -HYDR5TAB3 PO; -MECL12.52 PO; +MECL12.573 PO
--- NOTE | 2019-08-04 16:38 | RAD ---
PELVIS W/TV History: Reason: / Spl. Instructions: / History: Comparison: December 23, 2018. September 23, 2018. Technique: Grayscale and color Doppler imaging of the pelvis was performed using transabdominal and transvaginal technique. Findings: Prior hysterectomy. Prior oophorectomy on the right. Left ovary measures 2.7 x 1.7 x 2.6 cm. Normal flow to the left ovary. Multiple left ovarian follicles. Largest cystic lesion measures 1.4 x 1.4 x 1.6 cm. Largest cystic lesion previously measured 1.0 cm. The lesion may have increased compared to prior or may be a new lesion. No adnexal masses are seen. No free fluid. IMPRESSION: 1. Prior hysterectomy and right oophorectomy. 2. Small left ovarian cyst, increased or new compared to prior. Recommend continued ultrasound follow-up. If persistent clinical concern, MRI can further evaluate. Electronically signed by: Jim Kang DO (08/04/2019 4:36 PM) [facility]
== END | disposition home or self-care (01) ==
LOC: US 12:37
PROVIDERS: ATTEND Obstetrics & Gynecology
DX: R10.2 Pelvic and perineal pain (principal)
CPT/HCPCS: 76830; 76856

== ENCOUNTER 2019-10-17 16:09 | Emergency (ER) | payer MEDICAID ==
[~2019-10-17] VITALS: Ht 165.1 cm; Wt 77.0 kg
[2019-10-17 16:20] VITALS: BP 146/79
[2019-10-17] MEDS ORDERED: HYDR-3164 PO (16:40)
--- NOTE | 2019-10-17 16:40 | PHYS DOC ---
Past Medical History Past Medical History: Endometriosis, Other Additional Past Medical Histor: ADRENAL FATIGUE Past Surgical History: Cholecystectomy, Hysterectomy, Oophorectomy, Tubal ligation Additional Past Surgical Histo: left and right hand surgery, back surgery,NECK SURGERY Smoking Status: Never Smoker Alcohol Use: None Drug Use: None General Adult EDM: Chief Complaint: RIB PAIN HPI: HPI: Patient is a 49-year-old female who presents with mid back and rib pain. She states few days ago she was out walking her dog she fell down and then the dog jerked her up from a lying position. She states since that time she has had some achiness in her back and ribs. Particularly bad if she tries to side bend to the right or rotate. [] Review of Systems: Review of Systems: Constitutional: Denies fever or chills. [] Eyes: Denies change in visual acuity. [] HENT: Denies nasal congestion or sore throat. [] Respiratory: Denies cough or shortness of breath. [] Cardiovascular: Denies chest pain or edema. [] GI: Denies abdominal pain, nausea, vomiting, bloody stools or diarrhea. [] : Denies dysuria. [] Musculoskeletal: Per HPI [] Integument: Denies rash. [] Neurologic: Denies headache, focal weakness or sensory changes. [] Endocrine: Denies polyuria or polydipsia. [] Lymphatic: Denies swollen glands. [] Psychiatric: Denies depression or anxiety. [] Heart Score: Risk Factors: Risk Factors: DM, Current or recent (<one month) smoker, HTN, HLP, family history of CAD, obesity. Risk Scores: Score 0 - 3: 2.5% MACE over next 6 weeks - Discharge Home Score 4 - 6: 20.3% MACE over next 6 weeks - Admit for Clinical Observation Score 7 - 10: 72.7% MACE over next 6 weeks - Early Invasive Strategies Allergies: Allergies: Allergies Coded Allergies Type Severity Reaction Last Updated Verified Iodinated Contrast Media Allergy Intermediate 07/13/18 Yes Sulfa (Sulfonamide Antibiotics) Allergy Intermediate Unknown 07/13/18 Yes codeine Allergy Intermediate 07/13/18 Yes guaifenesin Allergy Intermediate 07/13/18 Yes morphine Allergy Intermediate Patient is can take PO Morphine 07/13/18 Yes pamabrom Allergy Intermediate 07/13/18 Yes Latex, Natural Rubber Allergy Mild ITCHY, RASH 07/13/18 Yes aspirin Adverse Reaction Intermediate NAUSEA/VOMITING 07/13/18 Yes ibuprofen Adverse Reaction Intermediate NAUSEA/VOMITING 07/13/18 Yes Physical Exam: PE: Constitutional: Well developed, well nourished, no acute distress, non-toxic appearance. [] HENT: Normocephalic, atraumatic, bilateral external ears normal, oropharynx mois t, no oral exudates, nose normal. [] Eyes: PERRLA, EOMI, conjunctiva normal, no discharge. [] Neck: Normal range of motion, no tenderness, supple, no stridor. [] Cardiovascular:Heart rate regular rhythm, no murmur [] Lungs & Thorax: Bilateral breath sounds clear to auscultation right chest is tender to palp there is no subcutaneous air [] Abdomen: Bowel sounds normal, soft, no tenderness, no masses, no pulsatile masses. [] Skin: Warm, dry, no erythema, no rash. [] Back: Thoracic paraspinal muscle spasm no midline tenderness [] Extremities: No tenderness, no cyanosis, no clubbing, ROM intact, no edema. [] Neurologic: Alert and oriented X 3, normal motor function, normal sensory function, no focal deficits noted. [] Psychologic: Affect normal, judgement normal, mood normal. [] Current Patient Data: Vital Signs: Vital Signs Date Time Temp Pulse Resp B/P (MAP) Pulse Ox O2 Delivery O2 Flow Rate FiO2 10/17/19 16:20 98.1 92 16 146/79 (101) 97 Room Air 98.1 EKG: EKG: [] Radiology/Procedures: Radiology/Procedures: [] Course & Med Decision Making: Course & Med Decision Making Pertinent Labs and Imaging studies reviewed. (See chart for details) [] Dragon Disclaimer: Dragon Disclaimer: This electronic medical record was generated, in whole or in part, using a voice recognition dictation system. Departure Departure Impression: Primary Impression: Chest wall pain Additional Impression: Thoracic myofascial strain Qualified Codes: S29.019A - Strain of muscle and tendon of unspecified wall of thorax, initial encounter Disposition: HOME, SELF-CARE Condition: STABLE Referrals: EDY SANABRIA MD (PCP) Patient Instructions: Thoracic Strain Additional Instructions: Return to the emergency department with any new or concerning symptoms Scripts Hydrocodone/Apap 5-325 (NORCO 5-325 TABLET) 1 Each Tablet 1 TAB PO PRN Q6HRS PRN for PAIN, #12 TAB 0 Refills Prov: CHELE ROGER DO 10/17/19 Justicifation of Admission Dx: Justifications for Admission: Justification of Admission Dx: No CHELE ROGER DO Oct 17, 2019 16:40
[2019-10-17] MEDS ORDERED: ORPHENADRINE CITRATE 60 MG/2 ML VIAL. IM ONE (16:45)
[2019-10-17] MEDS ORDERED: HYDROcodone/APAP 5/325MG 1 TAB TABLET PO ONE (16:45)
== END 2019-10-17 16:51 | disposition home or self-care (01) ==
LOC: ER 16:09
DX: S29.012A Strain of muscle and tendon of back wall of thorax, initial encounter (principal); R07.81 Pleurodynia; Z90.710 Acquired absence of both cervix and uterus; Z90.49 Acquired absence of other specified parts of digestive tract; Z98.51 Tubal ligation status; Z98.890 Other specified postprocedural states; Z91.040 Latex allergy status; Z88.5 Allergy status to narcotic agent; Z88.6 Allergy status to analgesic agent; Z91.041 Radiographic dye allergy status; W18.39XA Other fall on same level, initial encounter; Y93.89 Activity, other specified; Y92.89 Other specified places as the place of occurrence of the external cause; Y99.8 Other external cause status
CPT/HCPCS: 96372; 99283; J2360

== ENCOUNTER 2020-06-04 03:48 | Emergency (ER) | payer MEDICAID ==
[~2020-06-04] VITALS: Ht 162.6 cm; Wt 85.0 kg
[~2020-06-04 03:48] MED LIST changes: -MECL12.573 PO; +MECL12.582 PO
[2020-06-04 04:10] LABS: BASO % 0 % (0-3); EOS # 0.2 x10^3/uL (0.0-0.7); EOS % 2 % (0-3); HEMOGLOBIN 14.1 g/dL (12.0-15.5); LYMPH # 1.1 x10^3/uL (1.0-4.8); LYMPH % 11 % (24-48); MEAN CORPUSCULAR HEMOGLOBIN 30 pg (25-35); MEAN CORPUSCULAR HGB CONC 34 g/dL (31-37); MEAN CORPUSCULAR VOLUME 88 fL (79-100); MONO # 0.5 x10^3/uL (0.0-1.1); MONO % 5 % (0-9); NEUT # 8.7 x10^3/uL (1.8-7.7); NEUT % 83 % (31-73); PLATELET COUNT 236 x10^3/uL (140-400); RED BLOOD COUNT 4.64 x10^6/uL (3.50-5.40); RED CELL DISTRIBUTION WIDTH 14.7 % (11.5-14.5); WHITE BLOOD COUNT 10.5 x10^3/uL (4.0-11.0)
[2020-06-04] MEDS ORDERED: IV NORMAL SALINE 1000ML BAG 1,000 ML IV ONE (04:15)
[2020-06-04] MEDS ORDERED: ONDANSETRON PF 4 MG/2 ML VIAL. IVP ONE (04:15)
[2020-06-04 04:33] LABS: CALCIUM 7.7 mg/dL (8.5-10.1); CREATININE 0.8 mg/dL (0.6-1.0); GFR 75.9; POTASSIUM 3.7 mmol/L (3.5-5.1)
[2020-06-04 04:38] LABS: ALBUMIN 3.3 g/dL (3.4-5.0); ALBUMIN/GLOBULIN RATIO 0.9 (1.0-1.7); TOTAL BILIRUBIN 0.7 mg/dL (0.2-1.0)
[2020-06-04] MEDS ORDERED: ONDA4TAB7 PO (04:59)
--- NOTE | 2020-06-04 04:59 | PHYS DOC ---
Past Medical History Past Medical History: Endometriosis, Other Additional Past Medical Histor: ADRENAL FATIGUE Past Surgical History: Cholecystectomy, Hysterectomy, Oophorectomy, Tubal ligation Additional Past Surgical Histo: left and right hand surgery, back surgery,NECK SURGERY Smoking Status: Never Smoker Alcohol Use: None Drug Use: None General Adult EDM: Chief Complaint: NAUSEA/VOMITING/DIARRHEA HPI: HPI: Patient is a 49 year old female presents with a chief complaint of nausea vomiting diarrhea and abdominal cramping. Patient states 2 days ago she ate [employer] shortly after started have nausea and vomiting. Patient states nausea and vomiting improve and now she has diarrhea. Patient states 2 grandkids same symptoms also after eating [employer]. Patient abdominal discomfort is not a left lower region. She denies any chest pain or shortness of breath. Review of Systems: Review of Systems: Constitutional: Denies fever or chills. [] Eyes: Denies change in visual acuity. [] HENT: Denies nasal congestion or sore throat. [] Respiratory: Denies cough or shortness of breath. [] Cardiovascular: Denies chest pain or edema. [] GI: Positive abdominal pain, nausea, vomiting, diarrhea. [] : Denies dysuria. [] Musculoskeletal: Denies back pain or joint pain. [] Integument: Denies rash. [] Neurologic: Denies headache, focal weakness or sensory changes. [] Endocrine: Denies polyuria or polydipsia. [] Lymphatic: Denies swollen glands. [] Psychiatric: Denies depression or anxiety. [] Heart Score: C/O Chest Pain: N/A Risk Factors: Risk Factors: DM, Current or recent (<one month) smoker, HTN, HLP, family history of CAD, obesity. Risk Scores: Score 0 - 3: 2.5% MACE over next 6 weeks - Discharge Home Score 4 - 6: 20.3% MACE over next 6 weeks - Admit for Clinical Observation Score 7 - 10: 72.7% MACE over next 6 weeks - Early Invasive Strategies Current Medications: Current Medications Medications (Trade) Dose Ordered Sig/Cordelia Start Time Stop Time Status Last Admin Dose Admin Dicyclomine HCl (Bentyl) 10 mg 1X ONCE 06/04/20 05:00 06/04/20 05:01 UNV Famotidine (Pepcid Vial) 20 mg 1X ONCE 06/04/20 05:00 06/04/20 05:01 UNV Ondansetron HCl (Zofran) 4 mg 1X ONCE 06/04/20 04:15 06/04/20 04:16 DC 06/04/20 04:20 4 MG Sodium Chloride 1,000 ml @ 1,000 mls/hr 1X ONCE 06/04/20 04:15 06/04/20 05:14 06/04/20 04:21 1,000 MLS/HR Allergies: Allergies: Allergies Coded Allergies Type Severity Reaction Last Updated Verified Iodinated Contrast Media Allergy Intermediate 07/13/18 Yes Sulfa (Sulfonamide Antibiotics) Allergy Intermediate Unknown 07/13/18 Yes codeine Allergy Intermediate 07/13/18 Yes guaifenesin Allergy Intermediate 07/13/18 Yes morphine Allergy Intermediate Patient is can take PO Morphine 10/17/19 Yes pamabrom Allergy Intermediate 07/13/18 Yes Latex, Natural Rubber Allergy Mild ITCHY, RASH 07/13/18 Yes aspirin Adverse Reaction Intermediate NAUSEA/VOMITING 07/13/18 Yes ibuprofen Adverse Reaction Intermediate NAUSEA/VOMITING 07/13/18 Yes Physical Exam: PE: General: alert, no acute distress. Skin: warm, dry and intact. Head:: Normocephalic, atraumatic. Neck: Trachea midline. Eyes: EOMI, Normal conjunctiva, No drainage CARDIOVASCULAR: Regular rate and rhythm RESPIRATORY: No respiratory distress Back: Full range of motion. MUSCULOSKELETAL: Full range of motion of bilateral upper and lower extremities. GASTROINTESTINAL: Abdomen soft without rebound or guarding. NEUROLOGICAL: Alert and noted to person, place and time. No neurological deficits observed Psychiatric: Cooperative. Normal judgment Current Patient Data: Labs: Laboratory Tests Test 06/04/20 04:02 White Blood Count 10.5 x10^3/uL (4.0-11.0) Red Blood Count 4.64 x10^6/uL (3.50-5.40) Hemoglobin 14.1 g/dL (12.0-15.5) Hematocrit 41.0 % (36.0-47.0) Mean Corpuscular Volume 88 fL (79-100) Mean Corpuscular Hemoglobin 30 pg (25-35) Mean Corpuscular Hemoglobin Concent 34 g/dL (31-37) Red Cell Distribution Width 14.7 % (11.5-14.5) H Platelet Count 236 x10^3/uL (140-400) Neutrophils (%) (Auto) 83 % (31-73) H Lymphocytes (%) (Auto) 11 % (24-48) L Monocytes (%) (Auto) 5 % (0-9) Eosinophils (%) (Auto) 2 % (0-3) Basophils (%) (Auto) 0 % (0-3) Neutrophils # (Auto) 8.7 x10^3/uL (1.8-7.7) H Lymphocytes # (Auto) 1.1 x10^3/uL (1.0-4.8) Monocytes # (Auto) 0.5 x10^3/uL (0.0-1.1) Eosinophils # (Auto) 0.2 x10^3/uL (0.0-0.7) Basophils # (Auto) 0.0 x10^3/uL (0.0-0.2) Sodium Level 139 mmol/L (136-145) Potassium Level 3.7 mmol/L (3.5-5.1) Chloride Level 105 mmol/L (98-107) Carbon Dioxide Level 25 mmol/L (21-32) Anion Gap 9 (6-14) Blood Urea Nitrogen 11 mg/dL (7-20) Creatinine 0.8 mg/dL (0.6-1.0) Estimated GFR (Cockcroft-Gault) 75.9 BUN/Creatinine Ratio 14 (6-20) Glucose Level 109 mg/dL (70-99) H Calcium Level 7.7 mg/dL (8.5-10.1) L Total Bilirubin 0.7 mg/dL (0.2-1.0) Aspartate Amino Transferase (AST) 11 U/L (15-37) L Alanine Aminotransferase (ALT) 30 U/L (14-59) Alkaline Phosphatase 52 U/L (46-116) Total Protein 7.0 g/dL (6.4-8.2) Albumin 3.3 g/dL (3.4-5.0) L Albumin/Globulin Ratio 0.9 (1.0-1.7) L Lipase 98 U/L (73-393) Laboratory Tests 06/04/20 04:02 Laboratory Tests 06/04/20 04:02 Vital Signs: Vital Signs Date Time Temp Pulse Resp B/P (MAP) Pulse Ox O2 Delivery O2 Flow Rate FiO2 06/04/20 03:50 99.3 106 18 128/71 (90) 98 Room Air 99.3 EKG: EKG: [] Radiology/Procedures: Radiology/Procedures: [] Course & Med Decision Making: Course & Med Decision Making Pertinent Labs and Imaging studies reviewed. (See chart for details) []Patient treated with IV fluids zofran and bentyl. Plan to DC patient home on cipro and zofran. Dragon Disclaimer: Dragon Disclaimer: This electronic medical record was generated, in whole or in part, using a voice recognition dictation system. Departure Departure Impression: Primary Impression: Gastroenteritis Disposition: DC HOME SELF CARE/HOMELESS Condition: STABLE Referrals: EDY SANABRIA MD (PCP) Patient Instructions: Viral Gastroenteritis Scripts Ciprofloxacin (CIPRO) 250 Mg/5 Ml Lindsey.mc.rec 1 TAB PO BID for 7 Days, #14 TAB 0 Refills Prov: MORENA SANTIAGO DO 06/04/20 Ondansetron Hcl (ZOFRAN) 4 Mg Tablet 1 TAB PO Q6HRS, #20 TAB Prov: MORENA SANTIAGO DO 06/04/20 MORENA SANTIAGO DO Jun 04, 2020 04:59
[2020-06-04] MEDS ORDERED: DICYCLOMINE 20 MG/2 ML VIAL. IM ONE (05:00)
[2020-06-04] MEDS ORDERED: FAMOTIDINE 20 MG/2 ML VIAL IVP ONE (05:00)
[2020-06-04] MEDS ORDERED: CIPR250S2 PO (05:59)
[2020-06-04 06:05] LABS: BILIRUBIN,URINE NEGATIVE (NEG); CLARITY,URINE CLEAR; COLOR,URINE YELLOW; NITRITE,URINE NEGATIVE (NEG); PROTEIN,URINE NEGATIVE (NEG-TRACE); UROBILINOGEN,URINE 0.2 mg/dL (0.2 mg/dL)
[2020-06-04 06:18] VITALS: BP 115/60
[2020-06-04 06:42] LABS: BACTERIA,URINE 0 /HPF (0-FEW); RBC,URINE 0 /HPF (0-2); WBC,URINE 0 /HPF (0-4)
[2020-06-05] MEDS ORDERED: HYDR-2759 PO (21:06)
[2020-06-05] MEDS ORDERED: CYCL10TA2 PO (21:06)
== END 2020-06-04 06:32 | disposition home or self-care (01) ==
LOC: ER 03:48
DX: K52.9 Noninfective gastroenteritis and colitis, unspecified (principal); R11.2 Nausea with vomiting, unspecified; R10.9 Unspecified abdominal pain; Z90.49 Acquired absence of other specified parts of digestive tract; Z90.710 Acquired absence of both cervix and uterus; Z98.51 Tubal ligation status; Z90.89 Acquired absence of other organs; Z98.890 Other specified postprocedural states; Z91.040 Latex allergy status; Z88.2 Allergy status to sulfonamides; Z88.5 Allergy status to narcotic agent; Z88.6 Allergy status to analgesic agent; Z91.041 Radiographic dye allergy status; Z88.8 Allergy status to other drugs, medicaments and biological substances
CPT/HCPCS: 36415; 80053; 81001; 83690; 85025; 96361; 96372; 96374; 96375; 99284; J0500; J2405; J3490; J7030

== ENCOUNTER 2020-06-05 19:19 | Emergency (ER) | payer MEDICAID ==
[~2020-06-05] VITALS: Ht 162.6 cm; Wt 79.1 kg
[~2020-06-05 19:19] MED LIST changes: +CIPR250S2 PO
--- NOTE | 2020-06-05 19:40 | PHYS DOC ---
Past Medical History Past Medical History: Endometriosis, Other Additional Past Medical Histor: ADRENAL FATIGUE Past Surgical History: Cholecystectomy, Hysterectomy, Oophorectomy, Tubal ligation Additional Past Surgical Histo: left and right hand surgery, back surgery,NECK SURGERY Smoking Status: Never Smoker Alcohol Use: None Drug Use: None General Adult EDM: Chief Complaint: TRAUMA ALERT HPI: HPI: Patient is a 49 year old female brought in for evaluation after fall. Patient states she was handling her 120 pound dog by the collar when twisted her ankle fell to her knees then onto her right pelvis. Patient states while she was on her her back her dog stepped on her. Patient denies any head injury. There is no loss of consciousness. Patient complains of thoracic lumbar midline back pain. On exam there is no step-off or deformities of patient's C-spine T- spine or L-spine. Patient complains of bilateral knee pain as well as right hip pain. Patient is able to move all extremities passively and actively with some discomfort. Review of Systems: Review of Systems: Constitutional: Denies fever or chills. [] Eyes: Denies change in visual acuity. [] HENT: Denies nasal congestion or sore throat. [] Respiratory: Denies cough or shortness of breath. [] Cardiovascular: Denies chest pain or edema. [] GI: Denies abdominal pain, nausea, vomiting, bloody stools or diarrhea. [] : Denies dysuria. [] Musculoskeletal: Denies back pain or joint pain. [] Integument: Denies rash. [] Neurologic: Denies headache, focal weakness or sensory changes. [] Endocrine: Denies polyuria or polydipsia. [] Lymphatic: Denies swollen glands. [] Psychiatric: Denies depression or anxiety. [] Heart Score: C/O Chest Pain: N/A Risk Factors: Risk Factors: DM, Current or recent (<one month) smoker, HTN, HLP, family history of CAD, obesity. Risk Scores: Score 0 - 3: 2.5% MACE over next 6 weeks - Discharge Home Score 4 - 6: 20.3% MACE over next 6 weeks - Admit for Clinical Observation Score 7 - 10: 72.7% MACE over next 6 weeks - Early Invasive Strategies Allergies: Allergies: Allergies Coded Allergies Type Severity Reaction Last Updated Verified Iodinated Contrast Media Allergy Intermediate 07/13/18 Yes Sulfa (Sulfonamide Antibiotics) Allergy Intermediate Unknown 07/13/18 Yes codeine Allergy Intermediate 07/13/18 Yes guaifenesin Allergy Intermediate 07/13/18 Yes morphine Allergy Intermediate Patient is can take PO Morphine 10/17/19 Yes pamabrom Allergy Intermediate 07/13/18 Yes Latex, Natural Rubber Allergy Mild ITCHY, RASH 07/13/18 Yes aspirin Adverse Reaction Intermediate NAUSEA/VOMITING 07/13/18 Yes ibuprofen Adverse Reaction Intermediate NAUSEA/VOMITING 07/13/18 Yes Physical Exam: PE: Constitutional: Well developed, well nourished, no acute distress, non-toxic ap pearance. [] HENT: Normocephalic, atraumatic, bilateral external ears normal, oropharynx moist, no oral exudates, nose normal. [] Eyes: PERRLA, EOMI, conjunctiva normal, no discharge. [] Neck: Normal range of motion, no tenderness, supple, no stridor. [] Cardiovascular:Heart rate regular rhythm, no murmur [] Lungs & Thorax: Bilateral breath sounds clear to auscultation [] Abdomen: Bowel sounds normal, soft, no tenderness, no masses, no pulsatile masses. [] Skin: Warm, dry, no erythema, no rash. [] Back: No tenderness, no CVA tenderness. [] Extremities: No tenderness, no cyanosis, no clubbing, ROM intact, no edema. [] Neurologic: Alert and oriented X 3, normal motor function, normal sensory function, no focal deficits noted. [] Psychologic: Affect normal, judgement normal, mood normal. [] EKG: EKG: [] Radiology/Procedures: Radiology/Procedures: [] Impression: IMPRESSION: CT CHEST: 1. No acute abnormality seen throughout the chest. CT ABDOMEN/PELVIS: 1. No acute abnormality of the abdominal or pelvic contents. CT THORACIC SPINE: 1. No acute fracture or traumatic malalignment. CT LUMBAR SPINE: 1. No acute fracture or traumatic malalignment. Course & Med Decision Making: Course & Med Decision Making Pertinent Labs and Imaging studies reviewed. (See chart for details) [] Dragon Disclaimer: Dragon Disclaimer: This electronic medical record was generated, in whole or in part, using a voice recognition dictation system. Departure Departure Impression: Primary Impression: Fall from standing Additional Impressions: Back pain Leg pain Hip pain Neck pain Knee pain, bilateral Disposition: HOME SELF CARE/HOMELESS Condition: STABLE Referrals: EDY SANABRIA MD (PCP) Patient Instructions: Back Pain, Adult, Hip Pain, Musculoskeletal Pain, Soft Tissue Injury of the Neck Scripts Cyclobenzaprine Hcl (CYCLOBENZAPRINE HCL) 10 Mg Tablet 10 MG PO TID, #20 TAB Prov: MORENA SANTIAGO DO 06/05/20 Hydrocodone/Acetaminophen (Hydrocodone-Acetamin 5-325 mg) 1 Each Tablet 1 EACH PO Q4-6HRS, #20 TAB Prov: MORENA SANTIAGO DO 06/05/20 MORENA SANTIAGO DO Jun 05, 2020 19:40
[2020-06-05] MEDS ORDERED: fentaNYL PF VIAL 100 MCG/2 ML VIAL IVP ONE (20:15)
--- NOTE | 2020-06-05 20:29 | RAD ---
STUDY: CT head and cervical spine without contrast INDICATION: Fall. Pain. COMPARISON: None. TECHNIQUE: Axial CT imaging through the head and cervical spine without the use of intravenous contra st. Sagittal and coronal reformats were obtained. One or more of the following individualized dose reduction techniques were utilized for this examinat ion: 1. Automated exposure control 2. Adjustment of the mA and/or kV according to patient size 3. Use of iterative reconstruction technique. FINDINGS: CT head: No acute intracranial hemorrhage. Vega-white matter differentiation is maintained. No mass effect, mi dline shift or hydrocephalus. No depressed calvarial fracture. No large scalp hematoma or orbital abnormality. CT cervical spine: No acute fracture or traumatic malalignment. Chronic or developmental fusion across the C7-T1 disc space. Advanced discogenic arthrosis at C6-C7 a nd more moderate at C4-C5 and C5-C6. Disc osteophyte complex formation and uncovertebral joint hypert rophy greatest from C4-C5 through C6-C7 and to a lesser extent at C3-C4. Scattered mild to moderate f acet arthrosis. At least moderate central canal narrowing at C5-C6. Multilevel osseous neural foramin al stenosis most pronounced on the right at C6-C7. No soft tissue sequela of trauma. Unremarkable thyroid. No apical pneumothorax. IMPRESSION: CT head: 1. No acute intracranial abnormality by CT. CT cervical spine: 1. No acute fracture or traumatic malalignment. 2. Multifactorial degenerative changes with central canal narrowing greatest at C5-C6 and osseous ne ural foraminal stenosis greatest on the right at C6-C7. Electronically signed by: ARCADIO WILLINGHAM MD (06/05/2020 8:27 PM) [facility]
[2020-06-05] MEDS ORDERED: ONDANSETRON PF 4 MG/2 ML VIAL. IVP ONE (20:30)
[2020-06-05 20:45] LABS: BASO % 0 % (0-3); EOS # 0.1 x10^3/uL (0.0-0.7); EOS % 1 % (0-3); HEMOGLOBIN 12.9 g/dL (12.0-15.5); LYMPH # 1.8 x10^3/uL (1.0-4.8); LYMPH % 25 % (24-48); MEAN CORPUSCULAR HEMOGLOBIN 30 pg (25-35); MEAN CORPUSCULAR HGB CONC 33 g/dL (31-37); MEAN CORPUSCULAR VOLUME 89 fL (79-100); MONO # 0.5 x10^3/uL (0.0-1.1); MONO % 7 % (0-9); NEUT # 4.8 x10^3/uL (1.8-7.7); NEUT % 66 % (31-73); PLATELET COUNT 235 x10^3/uL (140-400); RED BLOOD COUNT 4.39 x10^6/uL (3.50-5.40); RED CELL DISTRIBUTION WIDTH 14.5 % (11.5-14.5); WHITE BLOOD COUNT 7.2 x10^3/uL (4.0-11.0)
--- NOTE | 2020-06-05 20:54 | RAD ---
STUDY: 1. CT chest without contrast 2. CT abdomen/pelvis without contrast 3. CT thoracic spine without contrast 4. CT lumbar spine without contrast INDICATION: Helical CT imaging of the chest, abdomen and pelvis performed without the use of intraven ous contrast. Coronal and sagittal reformats were obtained. The data obtained from the initial acquis ition was utilized to reconstruct smaller [id number] sequences through the thoracic and lumbar spi ne. One or more of the following individualized dose reduction techniques were utilized for this examinat ion: 1. Automated exposure control 2. Adjustment of the mA and/or kV according to patient size 3. Use of iterative reconstruction technique. FINDINGS: CT CHEST: No evidence for thoracic aorta injury noting the absence of intravenous contrast. No retrosternal hem atoma, pericardial effusion or pneumomediastinum. No mediastinal or or hilar lymphadenopathy. Within normal limits esophagus. No pneumothorax or pleural effusion. Mild atelectasis. No focal airspace opacity or suspicious pulmon river nodule. Patent central airways. The visualized thyroid is unremarkable. No axillary adenopathy. No large body wall hematoma with symm etric muscular bulk. No displaced rib fracture. No acute fracture seen at the shoulder girdles. Intact sternum. Spine find ings detailed separately. CT ABDOMEN/PELVIS: No acute abnormality of the liver, spleen or kidneys. Surgically absent gallbladder. Within normal li mits biliary tree given absence of the gallbladder. Unremarkable pancreas and adrenal glands. Unremarkable urinary bladder. Absent uterus. Probable left ovarian cystic focus measuring up to 2 cm with an internal density of 7 Hounsfield units. Unremarkable colon and appendix. Nonobstructed small bowel. Unremarkable stomach. No evidence for major vascular injury. No free fluid or pneumoperitoneum. No large body wall hematoma . No acute fracture seen throughout the pelvis. Lumbar spine findings discussed separately. CT THORACIC SPINE: No acute fracture or traumatic malalignment. Mild degenerative changes at a few locations without sig nificant osseous central canal or neural foraminal stenosis. Cervical spine findings discussed in a s eparate report. CT LUMBAR SPINE: Transitional lumbosacral anatomy with lumbarization of S1. No acute fracture or traumatic malalignmen t. The level lumbar facet arthrosis greatest at the lower lumbar spine. Osseous neural foraminal sten osis greatest on the left at L5-S1 favored moderate. Scattered discogenic arthrosis with endplate ost eophytic ridging and disc bulging. No evidence for severe central canal stenosis. IMPRESSION: CT CHEST: 1. No acute abnormality seen throughout the chest. CT ABDOMEN/PELVIS: 1. No acute abnormality of the abdominal or pelvic contents. CT THORACIC SPINE: 1. No acute fracture or traumatic malalignment. CT LUMBAR SPINE: 1. No acute fracture or traumatic malalignment. Electronically signed by: ARCADIO WILLINGHAM MD (06/05/2020 8:51 PM) [facility]
[2020-06-05 20:58] LABS: CALCIUM 8.3 mg/dL (8.5-10.1); CREATININE 0.8 mg/dL (0.6-1.0); GFR 75.9; POTASSIUM 3.6 mmol/L (3.5-5.1)
[2020-06-05 21:05] LABS: ALBUMIN 3.2 g/dL (3.4-5.0); ALBUMIN/GLOBULIN RATIO 0.9 (1.0-1.7); TOTAL BILIRUBIN 0.2 mg/dL (0.2-1.0); TOTAL PROTEIN 6.9 g/dL (6.4-8.2)
[2020-06-05] MEDS ORDERED: CYCL10TA2 PO (21:06)
[2020-06-05] MEDS ORDERED: HYDR-2759 PO (21:06)
--- NOTE | 2020-06-05 21:41 | RAD ---
Exam: Bilateral knee 3 views INDICATION: Bilateral knee pain after fall TECHNIQUE: Frontal, lateral and oblique views of the right and left knee Comparisons: None FINDINGS: Right knee: Bone mineralization is normal. No acute or healed fractures. Soft tissues are unremarkable. Joint spa christi are well-maintained. Left knee: Bone mineralization is normal. No acute or healed fractures. Soft tissues are unremarkable. Joint spa christi are well-maintained. IMPRESSION: No acute osseous abnormality of the right or left knee. Electronically signed by: Zeyad Junior MD (06/05/2020 9:39 PM) [facility]
[2020-06-05 22:00] VITALS: BP 129/70
== END 2020-06-05 21:59 | disposition home or self-care (01) ==
LOC: ER 19:19
DX: G89.11 Acute pain due to trauma (principal); M25.561 Pain in right knee; M25.562 Pain in left knee; M54.5 Low back pain; M54.2 Cervicalgia; M25.551 Pain in right hip; Z90.710 Acquired absence of both cervix and uterus; Z98.51 Tubal ligation status; Z90.49 Acquired absence of other specified parts of digestive tract; Z90.89 Acquired absence of other organs; Z98.890 Other specified postprocedural states; Z91.041 Radiographic dye allergy status; Z88.2 Allergy status to sulfonamides; Z88.5 Allergy status to narcotic agent; Z88.8 Allergy status to other drugs, medicaments and biological substances; Z88.6 Allergy status to analgesic agent; Z91.040 Latex allergy status; W18.39XA Other fall on same level, initial encounter; Y93.89 Activity, other specified; Y92.89 Other specified places as the place of occurrence of the external cause; Y99.8 Other external cause status
CPT/HCPCS: 36415; 70450; 71250; 72125; 73562; 74176; 80053; 85025; 96374; 96375; 99285; J2405; J3010